=== PATIENT | female | born 1940 | race Caucasian/White ===

== ENCOUNTER 2019-12-28 15:24 | Outpatient (CLI) | payer MEDICARE, SELFPAY ==
[2019-12-28 15:49] LABS: Hematocrit 46.4 % (37.0-47.0); Hemoglobin 15.2 g/dL (12.0-15.0); Immature Platelet Fraction Pct 6.6 % (0.9-11.2); Mean Corpuscular HGB Conc 32.8 g/dl (32-36); Mean Corpuscular Hemoglobin 31.9 pg (26-34); Mean Corpuscular Volume 97.5 fl (80-100); Mean Platelet Volume 11.5 fl (7.4-10.4); Platelet Count Result 137 k/mm3 (150-375); Red Blood Count 4.76 M/mm3 (4.2-5.4); Red Cell Distribution Width 13.1 % (11.5-14.5); White Blood Count 5.3 K/mm3 (4.5-10.0)
[2019-12-28 15:52] LABS: Add Urine Microscopic? YES; Appearance Urine Clear (Clear); Bilirubin Urine Negative (Negative); Blood Urine Negative (Negative); Color Urine Yellow (Yellow); Glucose Urine UA Negative (Negative); Ketones Urine Negative (Negative); Leukocyte Esterase Ur Negative LEU/UL (NEGATIVE); Mucus Urine Rare /lpf; Nitrate Urine Negative (Negative); Protein Urine Negative (Negative); RBC Urine 0-2 /hpf (0-2); Specific Grav Ur 1.025 (1.001-1.035); Squamous Epithelial Cell Urine Rare /hpf (Few); Urobilinogen Urine Negative mg/dL (<2.0); WBC Urine 0-3 /hpf (0-3)
[2019-12-28 16:00] LABS: Alanine Aminotransferase 17 U/L (4-35); Albumin Level 4.4 g/dL (3.5-5.1); Alkaline Phosphatase 117 U/L (38-126); Aspartate Amino Transferase 31 U/L (14-36); Bilirubin,Total 0.4 mg/dL (0.2-1.3); Blood Urea Nitrogen 31 mg/dL (7-17); Calcium 9.2 mg/dL (8.4-10.2); Carbon Dioxide 29 mmol/L (22-30); Chloride 103 mmol/L (98-107); Estimated Glomerular Filt Rate > 60; Glucose 95 mg/dL (65-105); Potassium 4.4 mmol/L (3.4-5.0); Sodium 139 mmol/L (137-145)
== END 2019-12-28 15:25 | disposition home or self-care (01) ==
PROVIDERS: PCP Family Medicine; Visit Provider Family Medicine
DX: D64.9 Anemia, unspecified (principal); R53.83 Other fatigue; N39.0 Urinary tract infection, site not specified
CPT/HCPCS: 36415; 80053; 81001; 84443; 85027; 85055

== ENCOUNTER 2020-01-24 13:37 | Emergency (ER) | payer MEDICARE, SELFPAY ==
--- NOTE | 2020-01-24 13:44 | ED.SKABFB ---
HPI - Skin/Abscess/Foreign Bdy General Chief complaint: Skin/Abscess/Foreign Body Stated complaint: wasp sting Time Seen by Provider: 01/24/20 13:44 Source: patient and RN notes reviewed History of Present Illness HPI narrative: Patient is an 79-year-old female who presents the urgent care with complaints of a wasp sting to the right upper arm. Patient states that it occurred on Thursday and is continued with redness and swelling. Patient has been using hydrocortisone cream to the area without much relief. Denies any fever, chills, nausea, vomiting. No other acute complaints. No acute distress noted. Patient read the plan of care. Related Data Allergies Allergy/AdvReac Type Severity Reaction Status Date / Time codeine Allergy Unknown Unknown Verified 12/28/19 14:35 Review of Systems Review of Systems: Narrative: CONSTITUTIONAL: Denies fever, chills, or sweats. EYES: Denies visual changes, redness, or discharge. ENT: Denies rhinorrhea, congestion, sore throat, or otalgia. CARDIOVASCULAR: Denies chest pain, palpitations, or edema. RESPIRATORY: Denies cough or dyspnea. GASTROINTESTINAL: Denies abdominal pain, nausea, vomiting, or diarrhea. GENITOURINARY: Denies dysuria or hematuria. SKIN:reports of a wasp sting to the right upper arm MUSCULOSKELETAL: Denies back pain, joint pain, or myalgia. NEUROLOGIC: Denies headache, numbness, or weakness. All other systems reviewed are negative, except as documented in HPI. PMFSH Surgical History Surgical History (Updated 06/29/19 @ 11:28 by Luis Manuel Kaur MD) Hx of cataract surgery Hx of nasal septoplasty Social History Social History (Updated 12/28/19 @ 14:35 by Priyanka Boyd) Smoking status: Never smoker Second hand tobacco smoke exposure: No Alcohol intake: current Drinks per week: 2 Substance use: never Substance use type: does not use Gender identity (if verbalized by the patient): Female Comments At the time of my signature, I reviewed and agree with the nursing past medical, surgical, social, and family history. There is no relevant family history pertinent to the patient complaint. Exam Narrative: Exam Narrative: GENERAL: This is a well-nourished, well-developed patient, in no apparent distress. HEAD: normocephalic, atraumatic. EYES: PERRL. Sclera clear/white. Vision is grossly intact. EARS: External ears normal NOSE: External nose normal with no obvious nasal discharge, nares without redness, no rhinorrhea. THROAT: Mucous membranes moist NECK: Neck supple SKIN: Notable insect bite to the inside of the right upper arm with approximately 10 cm in erythemic linear streaking to the elbow with very mild edema surrounding the injection site NEURO: awake, alert, and oriented to person, place and time. There were no obvious focal neurologic abnormalities. EXTREMITIES: No clubbing, cyanosis, or edema. Course Vital Signs Vital signs: Vital Signs Temperature 97.6 F 01/24/20 13:47 Pulse Rate 77 01/24/20 13:47 Respiratory Rate 20 01/24/20 13:47 Blood Pressure 113/73 01/24/20 13:47 Pulse Oximetry 95 01/24/20 13:47 Temperature 97.6 F 01/24/20 13:47 Pulse Rate 77 01/24/20 13:47 Respiratory Rate 20 01/24/20 13:47 Blood Pressure 113/73 01/24/20 13:47 Pulse Oximetry 95 01/24/20 13:47 reviewed MDM - Skin/Abscess/Foreign Bdy MDM Narrative Medical decision making narrative: Advised patient to complete steroid regime as prescribed. Complete the antibiotic regimen as prescribed. If you develop any rash, nausea, vomiting from the antibiotic?stop the medication immediately and follow-up with your PCP or in the emergency room if necessary. Make sure to eat and drink with the medication. Use over the counter antihistamine, such as Benadryl OR Claritin. May continue using hydrocortisone cream to the area as needed for itch. Use ice for 20min intervals for swelling and pain. If you continue to have increased swelling with redness and pain?g
[2020-01-24 13:47] VITALS: BP 113/73; PULSE 77; RESP 20; TEMP 36.4; O2SAT 95
== END 2020-01-24 14:14 | disposition home or self-care (01) ==
PROVIDERS: Emergency Provider Nurse Practitioner Family; PCP Family Medicine
DX: T63.461A Toxic effect of venom of wasps, accidental (unintentional), initial encounter (principal)
CPT/HCPCS: 99213; G0463

== ENCOUNTER 2020-02-10 08:52 | Emergency (ER) | payer MEDICARE, SELFPAY ==
--- NOTE | 2020-02-10 08:56 | ED.SKABFB ---
HPI - Skin/Abscess/Foreign Bdy General Chief complaint: Skin/Abscess/Foreign Body Stated complaint: rash Time Seen by Provider: 02/10/20 08:55 Source: patient Mode of arrival: ambulatory Limitations: no limitations History of Present Illness HPI narrative: Patient is an 79-year-old female who presents complaining of poison kristine to bilateral arms and neck x3 to 4 days after working the yard. She reports positive exposure to poison kristine. She denies other complaints at this time. She reports no pain but reports intense itching. Small areas of erythema, no abrasions from itching, no drainage. She reports using [id number] cream without relief. She denies all other complaints. MD complaint: rash Related Data Allergies Allergy/AdvReac Type Severity Reaction Status Date / Time codeine Allergy Unknown Unknown Verified 12/28/19 14:35 Review of Systems Review of Systems: Narrative: CONSTITUTIONAL: Denies fever, chills, or sweats. EYES: Denies visual changes, redness, or discharge. ENT: Denies rhinorrhea, congestion, sore throat, or otalgia. CARDIOVASCULAR: Denies chest pain, palpitations, or edema. RESPIRATORY: Denies cough or dyspnea. GASTROINTESTINAL: Denies abdominal pain, nausea, vomiting, or diarrhea. GENITOURINARY: Denies dysuria or hematuria. SKIN: Reports rash and itching to bilateral arms and neck, reports exposure to poison kristine while in yard. MUSCULOSKELETAL: Denies back pain, joint pain, or myalgia. NEUROLOGIC: Denies headache, numbness, dizziness, or weakness. PSYCHIATRIC: Denies anxiety or depression. [facility] Surgical History Surgical History Hx of cataract surgery Hx of nasal septoplasty Family History Family History Sibling Patient's sister is in good health Father Family history of coronary artery disease Social History Social History Smoking status: Never smoker Second hand tobacco smoke exposure: No Alcohol intake: current Drinks per week: 2 Substance use: never Substance use type: does not use Gender identity (if verbalized by the patient): Female Exam Narrative: Exam Narrative: GENERAL: Well-appearing, well-nourished, and in no acute distress. HEAD: Normocephalic, atraumatic. EYES: EOMI. No redness or drainage. Conjunctiva are normal. ENT: Mucous membranes pink and moist. NECK: AROM. Supple. No lymphadenopathy. CHEST: No respiratory distress. Clear to auscultation. HEART: Regular rate and rhythm. No murmur appreciated. Normal peripheral pulses. EXTREMITIES: Normal range of motion. No edema. SKIN: Warm and dry. Mild diffuse erythema to bilateral arms and posterior neck, no excoriation, no pustules, no drainage. NEURO: No focal deficits. Alert and oriented x3. Gait steady. PSYCH: Normal affect. No signs of depression or anxiety. Course Course Emergency Course: MDM - Skin/Abscess/Foreign Bdy MDM Narrative Medical decision making narrative: Patient's poison kristine rash is mild, topical cream and instructions given for relief of itch. Patient is stable for discharge to home with outpatient follow-up as needed. Critical Care Time Critical Care Time Critical Care Time: No Discharge Plan Discharge Clinical Impression: Allergic dermatitis due to poison kristine Patient Disposition: Home, Self-Care Condition: Stable Instructions: Poison Kristine (ED), Cold Compress or Soak (ED) Additional Instructions: Use cream as directed. You may take Benadryl at home as directed. Do not drive while taking Benadryl. Follow-up with your PCP as needed. Prescriptions: New hydrocortisone 2.5 % cream 1 applic TOPICAL BID PRN (Reason: allergic reaction) Qty: 30 RF: 0 Follow-up/Referrals: Luis Manuel Kaur MD [Primary Care Provider] - Time of Disposition: 09:18
[2020-02-10 09:02] VITALS: BP 100/54; PULSE 67; RESP 18; TEMP 36.4; O2SAT 97
== END 2020-02-10 09:25 | disposition home or self-care (01) ==
PROVIDERS: Emergency Provider Nurse Practitioner; PCP Family Medicine
DX: L23.7 Allergic contact dermatitis due to plants, except food (principal)
CPT/HCPCS: 99213; G0463

== ENCOUNTER 2020-02-16 15:03 | Outpatient (CLI) | payer MEDICARE, SELFPAY ==
--- NOTE | ~2020-02-16 | MM_ITS ---
EXAMINATION: MM screening [facility] BI w nicki HISTORY: Screening mammogram TECHNIQUE: Craniocaudal and mediolateral oblique 3-D tomosynthesis images were obtained and synthetic 2-D images were generated. CAD analysis was submitted and interpreted. COMPARISON: 02/04/2019, 02/01/2018, 01/23/2017 BREAST PARENCHYMAL COMPOSITION: The breasts are heterogeneously dense, which may obscure small masses . FINDINGS: There is no evidence of suspicious mass, calcification, or architectural distortion to sugg est malignancy in either breast. There has been no suspicious interval change. IMPRESSION: 1. No mammographic evidence of malignancy. 2. Recommend routine screening mammography in one year. BI-RADS Category 1: Negative Reviewed, dictated and finalized at location A.
== END 2020-02-16 15:04 | disposition home or self-care (01) ==
LOC: ANHIMG 15:08
PROVIDERS: PCP Family Medicine; Visit Provider Family Medicine
DX: Z12.31 Encounter for screening mammogram for malignant neoplasm of breast (principal)
CPT/HCPCS: 77063; 77067

== ENCOUNTER → 2021-01-01 10:37 | Outpatient (CLI) | payer MEDICARE, SELFPAY ==
--- NOTE | ~2021-01-01 | XR_ITS ---
XR chest 2V DATE: 01/01/2021 10:55 INDICATION: Chest pain TECHNIQUE: PA and lateral views COMPARISON: 06/19/2018 one view chest FINDINGS: There is bilateral hyperinflation consistent with obstructive pulmonary disease. Bilateral apical scarring. No pulmonary infiltrate or consolidation, pleural effusion, pulmonary vascular conge stion or pneumothorax is evident. No hilar or mediastinal enlargement is evident. Heart size is within normal range. Diffuse osteopenia. Old healed lateral left eighth and ninth rib fractures. IMPRESSION: Bilateral hyperinflation suggesting COPD No active cardiopulmonary disease Diffuse osteopenia Reviewed, dictated and finalized at location B.
== END ==
PROVIDERS: PCP Family Medicine; Visit Provider Family Medicine
DX: R07.89 Other chest pain (principal); R91.8 Other nonspecific abnormal finding of lung field; M85.88 Other specified disorders of bone density and structure, other site
CPT/HCPCS: 71046

== ENCOUNTER → 2021-02-11 15:33 | Outpatient (CLI) | payer MEDICARE, SELFPAY ==
--- NOTE | ~2021-02-11 | XR_ITS ---
EXAMINATION: XR shoulder LT min 2V DATE: 02/11/2021 16:52 INDICATION: Left shoulder pain. TECHNIQUE: 4 views of left shoulder were obtained. COMPARISON: None. FINDINGS: There is a comminuted fracture of left clavicle involving the distal third. The main distal fracture fragment demonstrates 4 mm inferior displacement and 28 degrees inferior angulation. There is mild osteoarthritis of acromioclavicular joint and glenohumeral joint. IMPRESSION: 1. Comminuted fracture of distal left clavicle. 2. Mild polyarticular osteoarthritis. Reviewed, dictated and finalized at location A.
== END ==
PROVIDERS: PCP Family Medicine; Visit Provider Family Medicine
DX: M19.012 Primary osteoarthritis, left shoulder (principal); S42.032A Displaced fracture of lateral end of left clavicle, initial encounter for closed fracture; X58.XXXA Exposure to other specified factors, initial encounter
CPT/HCPCS: 73030

== ENCOUNTER 2022-02-12 10:10 | Outpatient (CLI) | payer MEDICARE, SELFPAY ==
--- NOTE | ~2022-02-12 | MM_ITS ---
EXAMINATION: MM screening [facility] BI w nicki HISTORY: Screening TECHNIQUE: Craniocaudal and mediolateral oblique 3-D tomosynthesis images were obtained and synthetic 2-D images were generated. CAD analysis was submitted and interpreted. COMPARISON: Comparison to multiple prior studies sequentially, with oldest reviewed study dated 01/19. BREAST PARENCHYMAL COMPOSITION: The breasts are extremely dense, which lowers the sensitivity of mamm ography. FINDINGS: There is no evidence of suspicious mass, calcification, or architectural distortion to sugg est malignancy in either breast. There has been no suspicious interval change. IMPRESSION: 1. No mammographic evidence of malignancy. 2. Recommend routine screening mammography in one year. BI-RADS Category 1: Negative Reviewed, dictated and finalized at location A.
== END 2022-02-12 10:11 | disposition home or self-care (01) ==
PROVIDERS: PCP Family Medicine; Visit Provider Family Medicine
DX: Z12.31 Encounter for screening mammogram for malignant neoplasm of breast (principal)
CPT/HCPCS: 77063; 77067

== ENCOUNTER 2022-10-15 09:35 | Emergency (ER) | payer MEDICARE, SELFPAY ==
--- NOTE | ~2022-10-15 | CT_ITS ---
EXAMINATION: CT cervical spine wo con DATE: 10/15/2022 10:04 INDICATION: Head injury. TECHNIQUE: Computed tomography (CT) of the cervical spine was performed without intravenous contrast. Automated exposure control and iterative reconstruction technique were employed. The dose-length pro duct was 116.43 mGy-cm. COMPARISON: None FINDINGS: There is mild scarring at the lung apices. Bone alignment is normal. Vertebral body heights are normal. There is mildly decreased disc height at C5-C6 and severely decreased disc height at C6- C7. The following disc levels are specifically discussed: C2-C3: There is mild bilateral uncovertebral joint osteoarthritis. There is mild bilateral facet join t osteoarthritis. There is no neural foraminal stenosis. There is no central canal stenosis. C3-C4: There is mild right and severe left uncovertebral joint osteoarthritis. There is severe bilate ral facet joint osteoarthritis. There is mild left neural foraminal stenosis. There is no central can al stenosis. C4-C5: There is mild bilateral uncovertebral joint osteoarthritis. There is severe right and mild lef t facet joint osteoarthritis. There is no neural foraminal stenosis. There is no central canal stenos is. C5-C6: There is mild bilateral uncovertebral joint osteoarthritis. There is mild left facet joint ost eoarthritis. There is no neural foraminal stenosis. There is no central canal stenosis. C6-C7: There is moderate right and severe left uncovertebral joint osteoarthritis. There is moderate right and severe left facet joint osteoarthritis. There is mild left neural foraminal stenosis. There is mild central canal stenosis. C7-T1: There is no uncovertebral joint osteoarthritis. There is moderate and severe left facet joint osteoarthritis. There is mild left neural foraminal stenosis. There is no central canal stenosis. IMPRESSION: 1. No fracture. 2. Severe cervical spondylosis. Reviewed, dictated and finalized at location A.
--- NOTE | ~2022-10-15 | CT_ITS ---
EXAMINATION: CT brain wo con DATE: 10/15/2022 10:04 INDICATION: Head injury TECHNIQUE: Computed tomography (CT) of the head was performed without intravenous contrast. Sagittal and coronal reconstructions were performed. Automated exposure control and iterative reconstruction t echnique were employed. The dose-length product was 681.00 mGy-cm. COMPARISON: None FINDINGS: No fracture. No acute intracranial hemorrhage, acute infarction or abnormal extra axial fluid collect ion. Small old lacunar infarcts at the bilateral basal ganglia involving the heads of the caudate nuc lei and the anterior limb of the right internal capsule. There is mild scattered white matter hypoatt enuation consistent with chronic small vessel ischemic disease. Ventricles are normal and symmetric. No mass/mass effect. Mild mucosal thickening in the bilateral maxillary and right sphenoid sinuses. The orbits and mastoid air cells are normal. IMPRESSION: 1. No fracture or acute intracranial process. 2. Small old lacunar infarcts at the bilateral caudate nuclei and anterior limb of the right internal capsule. 3. Nonspecific mild scattered white matter hypoattenuation consistent with chronic small vessel ische byron disease. Reviewed, dictated and finalized at location A. IMPRESSION: 1. No fracture or acute intracranial process. 2. Small old lacunar infarcts at the bilateral caudate nuclei and anterior limb of the right internal capsule. 3. Nonspecific mild scattered white matter hypoattenuation consistent with site superintendent isaac small vessel ischemic disease.
[2022-10-15 09:43] VITALS: BP 121/75; PULSE 78; RESP 16; TEMP 36.6; O2SAT 97
--- NOTE | 2022-10-15 09:51 | PC.NURSE ---
While cleaning around her street, pt hit the top of her head off her mailbox this morning. Pt denies any LOC or blood thinners. Pt states she noticed the blood and applied a bandage before coming to the hospital. Pt drove her self.
--- NOTE | 2022-10-15 10:17 | PC.NURSE ---
RN cleans wound with wound cleanser. Bleeding controlled at this time.
--- NOTE | 2022-10-15 10:30 | ED.HEATRA ---
HPI - Head Injury General Chief complaint: Head Injury Stated complaint: head injury Time Seen by Provider: 10/15/22 09:47 History of Present Illness HPI Narrative: 81-year-old female presents to the emergency room for evaluation of scalp laceration. Patient states that she was outside checking her mail, when she experienced a mechanical ground-level fall, striking her head on the mailbox. Patient is not anticoagulated. For now.-year-old for mental status. Denies any neck pain. No nausea or vomiting. No visual or hearing changes. Patient was able to drive herself to the emergency room for evaluation. Related Data Home Medications Medication Instructions Recorded Confirmed multivitamin 1 tablet PO DAILY 02/13/21 02/20/22 omega-3 fatty acids 1,000 mg 1,000 mg PO DAILY 02/13/21 02/20/22 capsule (Fish Oil Concentrate) Allergies Allergy/AdvReac Type Severity Reaction Status Date / Time codeine Allergy Unknown Unknown Verified 10/15/22 09:45 Review of Systems Review of Systems: CONSTITUTIONAL: Denies fever, chills, or sweats. EYES: Denies visual changes, redness, or discharge. ENT: Denies rhinorrhea, congestion, sore throat, or otalgia. CARDIOVASCULAR: Denies chest pain, palpitations, or edema. RESPIRATORY: Denies cough or dyspnea. GASTROINTESTINAL: Denies abdominal pain, nausea, vomiting, or diarrhea. GENITOURINARY: Denies dysuria or hematuria. SKIN: Denies rash or itching. MUSCULOSKELETAL: Denies back pain, joint pain, or myalgia. NEUROLOGIC: Denies headache, numbness, dizziness, or weakness. PSYCHIATRIC: Denies anxiety or depression. [facility] Past Medical History Medical History Osteoporosis Surgical History Surgical History History of foot surgery Bilateral Hx of cataract surgery Hx of nasal septoplasty Family History Family History Sibling Patient's sister is in good health Eczema Seafood allergy Father Family history of coronary artery disease Social History Social History Smoking status: Never smoker Second hand tobacco smoke exposure: No Alcohol intake: never Substance use: never Substance use type: does not use Living arrangements: with family Occupation/Education: retired Gender identity (if verbalized by the patient): Female Sexual Orientation (if Verbalized by the Patient): Straight or Heterosexual Spiritual care concerns: No Exam Narrative: GENERAL: Well-appearing, well-nourished, no physical limitations, and in no acute distress. HEAD: Normocephalic, 0.5 cm linear laceration to the scalp EYES: Conjunctivae normal, PERRLA and EOMI. ENT: External nose normal, Nares clear, no rhinorrhea or epistaxis. Mucous membranes moist. Oropharynx without tonsillar hypertrophy exudate or other lesions. External ears normal, bilateral TMs normal bilaterally NECK: Supple. No meningeal signs. No adenopathy or masses. No carotid bruits or JVD CHEST: Clear to auscultation. No respiratory distress. No wheezes rales or rhonchi. No tenderness. HEART: Regular rate and rhythm. No murmur heard. Normal peripheral pulses. ABDOMEN: Soft, nontender, nondistended, normal active bowel sounds. : Normal external male/female exam. BACK: No CVA tenderness; No cervical/thoracic/lumbar tenderness, step-offs, bony abnormality; FROM EXTREMITIES: Normal range of motion. No edema. No clubbing or cyanosis SKIN: Warm, dry, no rash. No noted wounds NEURO: No focal deficits. Alert and oriented x3. MAEW. CN's II-XI intact bilaterally, normal gait PSYCH: Cooperative. Normal mood and affect. Course Vital Signs Vital signs: Vital Signs Temperature 36.6 C 10/15/22 09:43 Pulse Rate 78 10/15/22 09:43 Respiratory Rate 16 10/15/22 09:43 Blood Pressure 121/75 04/
== END 2022-10-15 11:03 | disposition home or self-care (01) ==
PROVIDERS: Emergency Provider Nurse Practitioner Family; PCP Family Medicine
DX: S01.01XA Laceration without foreign body of scalp, initial encounter (principal); M81.0 Age-related osteoporosis without current pathological fracture; Z98.49 Cataract extraction status, unspecified eye; M47.812 Spondylosis without myelopathy or radiculopathy, cervical region; W01.198A Fall on same level from slipping, tripping and stumbling with subsequent striking against other object, initial encounter
CPT/HCPCS: 12001; 70450; 72125; 99284

== ENCOUNTER 2023-02-13 16:05 | Inpatient (IN) | payer MEDICARE, SELFPAY ==
[2023-02-13] VITALS (33 sets, daily range): BP systolic 109–138; BP diastolic 58–66; PULSE 73–107; RESP 18–37; TEMP 37.5–38.1; O2SAT 89–96; BMI 18.1
--- NOTE | ~2023-02-13 | US_ITS ---
EXAMINATION: US venous doppler [facility] DATE: 02/14/2023 09:15 INDICATION: Lower limb swelling TECHNIQUE: Grayscale ultrasound images without and with compression and Doppler ultrasound images of the bilateral lower extremity veins were obtained. COMPARISON: None. FINDINGS: The visualized portions of right common femoral vein, profunda (deep) femoral vein, femoral vein, pop liteal vein, posterior tibial veins, peroneal veins, gastrocnemius vein and greater saphenous vein ou tflow are patent. The visualized portions of left common femoral vein, profunda femoral vein, femoral vein, popliteal v ein, posterior tibial veins, peroneal veins, gastrocnemius vein and greater saphenous vein outflow ar e patent. IMPRESSION: 1. No deep venous thrombosis in either lower limb. Reviewed, dictated and finalized at location A.
--- NOTE | ~2023-02-13 | CT_ITS ---
EXAMINATION: CTA chest PE protocol DATE: 02/13/2023 18:57 INDICATION: Chest pain, shortness of breath and elevated d-dimer TECHNIQUE: Computed tomography (CT) pulmonary angiogram of the chest was performed with 100 mL Omnipa que-350 intravenous contrast. Additional 3D reconstructions utilizing coronal maximum intensity proje ction (MIP) were performed. Automated exposure control and iterative reconstruction technique were em ployed. The dose-length product was 130.77 mGy-cm. COMPARISON: Cervical spine CT dated 10/15/2022 and chest radiograph dated 02/13/2023, 01/01/2021 and 04/28/2014 FINDINGS: Excellent contrast opacification of the pulmonary arteries. There is mild streak artifact from dense contrast in the superior vena cava and right atrium. Mild scattered respiratory motion artifact. Nega tive this mildly decreases sensitivity in the smaller subsegmental pulmonary arteries. No pulmonary e mbolism. Chronic biapical pleural-parenchymal scarring, right greater than left which can be seen on radiographs dating back to 04/28/2014. There is consolidation without corresponding volume loss in the lingula consistent with pneumonia. Additional small region of consolidation at the medial right midd le lobe but with volume loss and associated bronchiectasis which is more suggestive of chronic atelec tasis/scarring although additional pneumonia is not excluded. There are a few additional small patchy regions of lung disease from groundglass opacity the left lower lobe and anterobasilar right lower l obe, tree-in-bud pattern in the posterior right upper lobe and more dense consolidation superior segm ent of the right lower lobe which are most likely also infectious in etiology. Very small bilateral p leural effusions at the dependent lung bases. Heart size is normal. No pericardial effusion. Thoracic aorta is normal in caliber with no dissection. No pathologically enlarged thoracic lymphadenopathy. And mild thoracic dextrocurvature with mild to moderate spondylosis.. IMPRESSION: 1. No pulmonary embolism. 2. Large region of consolidation in the lingula with a few additional scattered patchy regions of lesli g disease in both lungs most consistent with multifocal pneumonia. Reviewed, dictated and finalized at location A. IMPRESSION: 1. No pulmonary embolism. 2. Large region of consolidation in the lingula with a few additional scattered patchy regions of lung disease in both lungs most consistent with multifocal p neumonia.
--- NOTE | ~2023-02-13 | XR_ITS ---
EXAMINATION: XR chest 1V portable INDICATION: Cough TECHNIQUE: Portable AP chest at 1653 hours COMPARISON: 01/01/2021 FINDINGS: There are airspace opacities and volume loss in the right upper lobe. There is an 8 mm nodu le of the lingula/left lower lobe. No pleural effusion or pneumothorax. The cardiomediastinal silhoue tte is stable. Healed left-sided rib fractures are noted. There is also a healed left distal clavicle fracture. IMPRESSION: 1. Right upper lobe airspace opacities which could reflect scarring/atelectasis versus pneumonia. 2. Nodule of the lingula/left lower lobe. Further evaluation with CT of the chest is recommended. Reviewed, dictated and finalized at location A. IMPRESSION: 1. Right upper lobe airspace opacities which could reflect scarring/atelectasis versus pneumonia. 2. Nodule of the lingula/left lower lobe. Further evaluation with CT of the [address] st is recommended.
--- NOTE | 2023-02-13 16:16 | ECG_ITS ---
Measurements Intervals [place] Rate: 101 P: 81 RI: 143 QRS: 243 QRSD: 86 T: 33 QT: 306 QTc: 398 Interpretive Statements SINUS TACHYCARDIA INDETERMINATE AXIS COMPARED TO ECG 03/01/2019 10:17:30 SINUS TACHYCARDIA NOW PRESENT Electronically Signed On 02-14-2023 11:34:03 CDT by Costa Olivo MD
[2023-02-13 17:10] LABS: Basophils Percent Auto 0.3 % (0.2-1.2); Eosinophils Percent Auto 0.2 % (0-4.4); Hematocrit 40.1 % (37.0-47.0); Hemoglobin 12.8 g/dL (12.0-15.0); Immature Granulocyte Absolute 0.08 K/mm3 (0.00-0.031); Immature Granulocyte Percent A 0.6 % (0-0.5); Lymphocytes Absolute Auto 0.88 K/mm3 (0.9-3.2); Mean Corpuscular HGB Conc 31.9 g/dl (32-36); Mean Corpuscular Hemoglobin 31.5 pg (26-34); Mean Corpuscular Volume 98.8 fl (80-100); Mean Platelet Volume 12.2 fl (7.4-10.4); Monocytes Absolute Auto 1.2 K/mm3 (0.1-0.6); Monocytes Percent Auto 9.2 % (2.6-8.5); Neutrophils Absolute Auto 10.5 K/mm3 (1.3-6.7); Neutrophils Percent Auto 82.7 % (45.5-73.1); Platelet Count Result 149 k/mm3 (150-375); Red Blood Count 4.06 M/mm3 (4.2-5.4); Red Cell Distribution Width 13.3 % (11.5-14.5); White Blood Count 12.7 K/mm3 (4.5-10.0)
[2023-02-13 17:21] LABS: Alanine Aminotransferase 23 U/L (6-35); Albumin Level 3.6 g/dL (3.5-5.1); Alkaline Phosphatase 127 U/L (38-126); Anion Gap 6 mmol/L (8-16); Aspartate Amino Transferase 27 U/L (14-36); Bilirubin,Total 0.6 mg/dL (0.2-1.3); Blood Urea Nitrogen 24 mg/dL (7-17); Calcium 8.2 mg/dL (8.4-10.2); Carbon Dioxide 26 mmol/L (22-30); Chloride 104 mmol/L (98-107); Estimated CRCL calculation 40 ml/min; Estimated Glomerular Filt Rate > 60; Glucose 156 mg/dL (65-110); Potassium 4.1 mmol/L (3.4-5.0); Sodium 136 mmol/L (137-145)
[2023-02-13 17:44] LABS: Influenza A QL RT-PCR Negative (Negative); Influenza B QL RT-PCR Negative (Negative); SARS-CoV-2 RNA PCR Negative (Negative)
[2023-02-13 17:53] LABS: Partial Thromboplastin Time 29.5 SECONDS (22.3-36.8)
[2023-02-13 17:54] LABS: INR 0.9; Prothrombin Time 13.1 Seconds (11.1-14.7)
--- NOTE | 2023-02-13 17:55 | ED.SOB ---
HPI - SOB/Dyspnea General Chief Complaint: Shortness of Breath/Dyspnea <Anahi Dee PA-C - Last Filed: 02/13/23 21:38> Stated Complaint: decreased energy level, sob <LYLE Hawley Last Filed: 02/13/23 21:38> Time Seen by Provider: 02/13/23 16:58 <Anahi Dee PA-C - Last Filed: 02/13/23 21:38> Source: patient <LYLE Hawley Last Filed: 02/13/23 21:38> Mode of arrival: ambulatory <LYLE Hawley Last Filed: 02/13/23 21:38> Limitations: no limitations <LYLE Hawley Last Filed: 02/13/23 21:38> History of Present Illness HPI Narrative: This is an 82-year-old female that presents to the emergency department for generalized weakness. Reports fatigue, shortness of breath, cough, and left-sided chest pain. The pain is worse with coughing and deep breathing. Reports this has been ongoing for about 1-1/2 weeks. Patient noted to be febrile. She does live at home alone. Reports she has not been getting around very well. Denies lower extremity edema. <Anahi Dee PA-C - Last Filed: 02/13/23 21:38> Related Data Home Medications: Home Medications Medication Instructions Recorded Confirmed multivitamin 1 tablet PO DAILY 02/13/21 02/13/23 omega-3 fatty acids 1,000 mg 1,000 mg PO DAILY 02/13/21 02/13/23 capsule (Fish Oil Concentrate) psyllium 1 packet PO DAILY 02/13/23 02/13/23 <LYLE Hawley Last Filed: 02/13/23 21:38> Allergies/Adverse Reactions: Allergies Allergy/AdvReac Type Severity Reaction Status Date / Time codeine Allergy Unknown Unknown Verified 02/13/23 18:32 <LYLE Hawley Last Filed: 02/13/23 21:38> Review of Systems Review of Systems: CONSTITUTIONAL: Reports fever CARDIOVASCULAR: Reports chest pain. Denies edema. RESPIRATORY: Reports cough and dyspnea. NEUROLOGIC: Reports generalized weakness. <Anahi Dee PA-C - Last Filed: 02/13/23 21:38> All systems reviewed & are unremarkable except as noted in HPI and below <Anahi Dee PA-C - Last Filed: 02/13/23 21:38> [facility] Past Medical History Medical History: Medical History (Updated 02/13/23 @ 21:33 by Belinda Mg PA-C) Bronchiectasis Chronic constipation Chronic obstructive pulmonary disease Mycobacterium avium-intracellulare infection Followed by [facility]. Osteoporosis <Anahi Dee PA-C - Last Filed: 02/13/23 21:38> Surgical History Surgical History: Surgical History (Updated 02/13/23 @ 21:19 by Belinda Mg PA-C) History of cataract extraction History of foot surgery History of bone spur removal in bunionectomy. History of nasal septoplasty <Anahi Dee PA-C - Last Filed: 02/13/23 21:38> Family History Family History: Family History Sibling Patient's sister is in good health Eczema Seafood allergy Father Family history of coronary artery disease <Anahi Dee PA-C - Last Filed: 02/13/23 21:38> Social History Social History: Social History (Updated 02/13/23 @ 21:22 by Belinda Mg PA-C) Social History: Surrogate medical decision maker: Cynthia Szymanskiner, sister. Code status: Smoking status: Never smoker Second hand tobacco smoke exposure: No Alcohol intake: current Substance use: never Substance use type: does not use Lack of Transportation: No Lack of Food: Never True Current Housing: I Have Housing Concerned About Future Housing: No Difficulty Paying Gas/Electric Bills: No Difficulty Paying for Meds: No Currently Unemployed: No Education: Bachelor's Degree Difficulty w/ Childcare or Family Care: No Living arrangements: alone Additional living arrangements comments: The patient lives in her own home in [place]. She lives at home with her small dog, Chana. She never and has no children.
[2023-02-13 17:56] LABS: D Dimer 2.92 ug/mL (<0.48)
[2023-02-13 18:26] LABS: Lactic Acid Reflex 0.8 mmol/L (0.7-2.0)
[2023-02-13 18:28] LABS: Alveolar/Arterial O2 Gradient 101.3 mmHg; Base Excess ABG 1.8 mEq/l (+/-2.0); Fractional Inspired Oxygen 32 %; HCO3 ABG 25.8 mEq/l (22.0-26.0); Methemoglobin ABG 0.3 %THb (0-1.5); Oxygen Content ABG 17.5 %vol (16.0-22.0); Oxygen Saturation ABG 96.6 % (95.0-100.0); Oxyhemoglobin 95.9 % THb (90.0-100.0); PCO2 ABG 37.9 mmHg (35.0-45.0); PO2 ABG 82.5 mmHg (80.0-100.0); PO2 FiO2 Ratio Arterial Blood 2.58 %; Reduced Hemoglobin 3.8 %THb (0-5.0); Total Hemoglobin 12.9 g/dL (12.0-18.0)
[2023-02-13 18:29] LABS: Device NASAL CANNULA; Site Drawn LEFT BRACHIAL
[2023-02-13] MEDS: ACETAMINOPHEN 500 MG TABLET 1000 MG PO (18:32)
--- NOTE | 2023-02-13 19:33 | PC.NURSE ---
This RN assumed care of patient. This RN took patient report from RITESH Potter.
[2023-02-13 19:41] LABS: Hemoglobin A1C 5.5 % (<5.7)
[2023-02-13] MEDS: AZITHROMYCIN 500 MG/NS 250 ML 500 MG/250 ML BAG 250 MG IVPB (19:43)
--- NOTE | 2023-02-13 20:44 | PM.IMHP ---
H&P: HPI History of Present Illness Date/Time: 02/13/23 20:15 Chief Complaint: Generalized weakness. Narrative: This is a very pleasant 82-year-old female with history of mycobacterium avium intracellulare infection with bronchiectasis/COPD felt to be a sequelae of prior SATURNINO infection who presented to the emergency department via private vehicle from home for evaluation of generalized weakness. The patient provides the following history. She returned from a 10 day trip to [place] 3 days ago and she felt well a majority of the trip however she lost her appetite earlier this week. Since returning home she has felt worse each day with generalized weakness, malaise, fatigue, dry cough, left-sided pleuritic chest pain, shortness of breath, and decreased appetite. She denies fever but did have a low-grade temperature on arrival. She has no known sick contacts. She denies chills, sweats, and fever (low-grade temperature noted on arrival to the ED), headache, neck ache, rash, nausea, vomiting, diarrhea, and hemoptysis. Preliminary workup in the ED was significant for a WBC count of 12.7, D-dimer 2.92, sodium 136, BUN 24, and negative influenza and COVID screenings. Chest CTA showed no evidence of pulmonary embolism but did note findings consistent with multifocal pneumonia. She received a dose of azithromycin and ceftriaxone and she is being admitted in this setting for further treatment. Review of Systems Review of Systems: Twelve systems were reviewed and are negative except for as per HPI. [facility] Past Medical History Medical History (Updated 02/13/23 @ 21:33 by Belinda Mg PA-C) Bronchiectasis Chronic constipation Chronic obstructive pulmonary disease Mycobacterium avium-intracellulare infection Followed by [facility]. Osteoporosis Surgical History Surgical History (Updated 02/13/23 @ 21:19 by Belinda Mg PA-C) History of cataract extraction History of foot surgery History of bone spur removal in bunionectomy. History of nasal septoplasty Family History Family History Sibling Patient's sister is in good health Eczema Seafood allergy Father Family history of coronary artery disease Social History Social History (Updated 02/13/23 @ 21:22 by Belinda Mg PA-C) Social History: Surrogate medical decision maker: Cynthia Valdes, sister. Code status: Smoking status: Never smoker Second hand tobacco smoke exposure: No Alcohol intake: never Substance use: never Substance use type: does not use Living arrangements: alone Additional living arrangements comments: The patient lives in her own home in [place]. She lives at home with her small dog, Chana. She never and has no children. 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 Spiritual care concerns: No Meds Home Medications and Allergies Home Medications Medication Instructions Recorded Confirmed Type multivitamin 1 tablet PO DAILY 02/13/21 01/13/23 History omega-3 fatty acids 1,000 mg 1,000 mg PO DAILY 02/13/21 01/13/23 History capsule (Fish Oil Concentrate) triamcinolone acetonide 0.1 % 1 applic topical BID PRN bites #30 01/13/23 01/13/23 Rx topical ointment grams Allergies Allergy/AdvReac Type Severity Reaction Status Date / Time codeine Allergy Unknown Unknown Verified 02/13/23 18:32 Vital Signs Vital Signs - 24 hr 02/13/23 16:08 02/13/23 18:30 02/13/23 19:51 Temperature 99.5 F 100.6 F H Pulse Rate 107 H Respiratory Rate 24 H Blood Pressure 129/66 Pulse Oximetry 91 92 Oxygen Delivery Room Air Nasal Cannula Oxygen Flow Rate 4 Exam Narrative: General: Thin, frail, moderately ill-appearing elderly female in the semi-García position in bed. Weight: 49.44 kg. BMI: 18.7. HEENT: Wearing corrective lenses. PERRL, EOMI. Scler
--- NOTE | 2023-02-13 21:53 | ADMGEN ---
This patient, Shelton Cheema, was admitted to Medical Room 342-01. Patient/family oriented to hospital policies and general routines including ID bracelet, bed and alarms, visiting hours, pain management, procedures, bathroom and other care routines, personal items, smoking policy, room service/diet, and visiting hours. Information on how to activate the Rapid Response Team has been discussed. Patient/Family are encouraged to report perceived risks to care and to ask questions if they do not understand what they are told or what they should do.
[2023-02-13 22:11] LABS: NT Pro B Type Natriuretic Pept 766 pg/mL (19.9-100); Troponin I < 0.012 ng/mL (0.000-0.034)
[2023-02-14] VITALS (15 sets, daily range): BP systolic 103–128; BP diastolic 40–64; PULSE 85–98; RESP 16–22; TEMP 36.4–38.3; O2SAT 90–97
[2023-02-14] MEDS: IPRATROPIUM BR 0.02% INH SOLN 0.5 MG/2.5 ML VIAL INHALATION ×4 (02:33→21:09)
[2023-02-14] MEDS: ALBUTEROL SULFATE NEB 2.5 MG/3 ML INH INHALATION ×4 (02:33→21:08)
[2023-02-14] MEDS: SODIUM CHLOR 3% 15 ML NEB (RESPIRATORY THERAPY) 6 ML INHALATION (05:31)
[2023-02-14] MEDS: PSYLLIUM POWDER PACKET 1 PACKET PO (09:15)
[2023-02-14] MEDS: MULTIVITAMINS THERAPEUTIC TAB (*BKC) 1 TABLET PO (09:15)
[2023-02-14] MEDS: ENOXAPARIN 40 MG/0.4 ML SYRINGE SUB-Q (09:15)
[2023-02-14] MEDS: guaiFENesin 12 HR 600 MG TABCR PO ×2 (09:15→21:52)
--- NOTE | 2023-02-14 11:42 | PM.CNPUL ---
Assessment and Plan Assessment and plan (1) Acute respiratory failure with hypoxia: Code(s): J96.01 - Acute respiratory failure with hypoxia Status: Acute Assessment and Plan: This 82-year-old female with history of radiographic emphysema bronchiectasis previous non tuberculous mycobacterial infection for which she received treatment with antibiotics, with recurrence of mycobacterial infection based on sputum culture done in May of last year, presented with complaints of generalized fatigue, left pleuritic chest pain, mild cough, and borderline hypoxemia. Chest CT showed infiltrate left upper lobe which is definitely new as in previous chest CT reports she had no evidence of left upper lobe infiltrates. The patient has been on treatment for community-acquired pneumonia. Her respiratory status has been unchanged over the last 24 hours. Plan: Continue with current antibiotic regimen DVT prophylaxis supplemental oxygen. I would culture sputum for AFBs as patient has known recurrence of nontuberculous mycobacterial infection, based on sputum cultures done in May of 2022. The CT showed pneumonic infiltrate which could be related to community-acquired pneumonia but progression of her nontuberculous mycobacterial infection is also likely. Will follow the patient along with you. (2) Multifocal pneumonia: Code(s): J18.9 - Pneumonia, unspecified organism Status: Acute (3) History of Mycobacterium avium intracellulare infection: Code(s): Z86.19 - Personal history of other infectious and parasitic diseases Status: Acute (4) Emphysema lung: Code(s): J43.9 - Emphysema, unspecified Status: Acute (5) Bronchiectasis: Code(s): J47.9 - Bronchiectasis, uncomplicated Status: Acute History of Present Illness History of Present Illness Consult date: 02/14/23 Chief complaint: acute resp failure, pneumonia Narrative: This 82-year-old female with a previous history of mycobacterium avium intracellular artery, history of bronchiectasis/COPD presented with generalized weakness decreased appetite and left lateral ribcage pleuritic chest pain. The patient has history of mycobacterium avium intracellular Jesse followed up the lack center at [facility]. In the past the patient was treated with antibiotics for SATURNINO infection. Patient was last seen at [facility] in July of this year. According to outpatient evaluation, she was stable from a respiratory standpoint. In May of 2022 she had sputum culture for not tubercle is mycobacteria and according to her air sampling and monitoring at [facility] she had 2- samples and 1 growing moderate mycobacterium chimaera intracellulare. No treatment was restarted. In addition the patient has a history of bronchiectasis and COPD. Pulmonary function testing at [facility] showed FEV1 in the range of 1 point 0 L or 56% predicted, FVC of 1.24 52% predicted and a ratio of 82%. She had no evidence of oxyhemoglobin desaturation on the 6 minute walk test and a chest CT done approximately 1 year ago showed mild lung predominant bronchiectasis greatest in the right lobe with some right middle lobe volume loss related to previous SATURNINO infection. The patient was in her usual state of health until approximately several days prior to this admission when she felt weak. In addition she started to have a dry cough, left-sided pleuritic chest pain mild shortness of breath and decreased appetite. She had no fever chills sweats nausea vomiting or hemoptysis. Workup in the emergency room showed extensive consolidation in the lingula with a few additional scattered patchy regions of lung disease in both lungs consistent with multifocal pneumonia. In the emergency room she was found to have a low-grade fever and also oxyhemoglobin saturation of 89% on room air. The patient has been on antibiotics for community-acquired pneumonia. Review of Systems Review of Systems: All systems
--- NOTE | 2023-02-14 15:20 | PM.IMPN ---
Progress Note: A&P Assessment and Plan (1) Acute respiratory failure with hypoxia: Code(s): J96.01 - Acute respiratory failure with hypoxia Status: Acute Assessment and Plan: Secondary to pneumonia Continue oxygen and wean as tolerated (2) Multifocal pneumonia: Code(s): J18.9 - Pneumonia, unspecified organism Status: Acute Assessment and Plan: Continue ceftriaxone and azithromycin (3) History of Mycobacterium avium intracellulare infection: Code(s): Z86.19 - Personal history of other infectious and parasitic diseases Status: Acute Assessment and Plan: Continue pulmonary toilet Subjective Date/time seen: 02/14/23 15:20 Interval history: Bored and wants to get out of bed. Tolerated diet. Appetite improved. Still coughing. Minimally productive of white sputum. Left pleuritic pain persists. No other chest pain. Shortness of breath with ambulation. No GI or complaints. No abnormal bleeding. Review of Systems Review of Systems: Twelve systems were reviewed and are negative except for as per HPI. Exam Narrative: General: Thin, frail, moderately ill-appearing elderly female in NAD HEENT: PERRL, Sclera anicteric. Moist mucous membranes. Neck: Supple. Respiratory: Mildly tachypneic. Able to speak in full sentences and appears in no acute respiratory distress. Currently on 4 L nasal cannula. Lung sounds are are coarse with scattered crackles Cardiovascular: Regular rate and rhythm with S1-S2. Gastrointestinal: Abdomen is soft, flat, nontender, and nondistended with positive bowel sounds. Skin: Warm and dry. No rash or lesions on limited exam. Extremities: No cyanosis or clubbing. Neurological: Alert. Cranial nerves 3-12 are symmetric to visual inspection. Psychiatric: Pleasant and cooperative with normal mood and affect. Judgment and insight intact. A/O x 4. Objective Data Vital Signs Vital Signs: Vital Signs - 24 hr 02/13/23 16:08 02/13/23 18:30 02/13/23 19:51 Temperature 99.5 F 100.6 F H Pulse Rate 107 H Respiratory Rate 24 H Blood Pressure 129/66 Pulse Oximetry 91 92 Oxygen Delivery Room Air Nasal Cannula Oxygen Flow Rate 4 02/13/23 16:16 02/13/23 16:30 02/13/23 16:33 Temperature Pulse Rate 96 97 Respiratory Rate 24 H 29 H Blood Pressure 123/62 Pulse Oximetry 89 L 90 91 Oxygen Delivery Oxygen Flow Rate 02/13/23 16:45 02/13/23 16:46 02/13/23 17:00 Temperature Pulse Rate 95 97 94 Respiratory Rate 30 H 31 H 35 H Blood Pressure 124/65 127/63 Pulse Oximetry 90 89 L 91 Oxygen Delivery Oxygen Flow Rate 02/13/23 17:01 02/13/23 17:15 02/13/23 17:16 Temperature Pulse Rate 95 91 95 Respiratory Rate 35 H 32 H 31 H Blood Pressure 128/58 L Pulse Oximetry 91 90 90 Oxygen Delivery Oxygen Flow Rate 02/13/23 17:30 02/13/23 17:31 02/13/23 17:45 Temperature Pulse Rate 90 90 88 Respiratory Rate 35 H 34 H 29 H Blood Pressure 126/66 130/60 Pulse Oximetry 90 90 89 L Oxygen Delivery Oxygen Flow Rate 02/13/23 17:46 02/13/23 18:05 02/13/23 18:35 Temperature Pulse Rate 90 93 92 Respiratory Rate 19 21 H 24 H Blood Pressure Pulse Oximetry 91 96 94 Oxygen Delivery Oxygen Flow Rate 02/13/23 19:00 02/13/23 19:15 02/13/23 19:30 Temperature Pulse Rate 87 80 80 Respiratory Rate 26 H 30 H 32 H Blood Pressure Pulse Oximetry 95 94 93 Oxygen Delivery Oxygen Flow Rate 02/13/23 19:45 02/13/23 20:00 02/13/23 20:15 Temperature Pulse Rate 78 82 82 Respiratory Rate 28 H 34 H 37 H Blood Pressure Pulse Oximetry 94 94 95 Oxygen Delivery Oxygen Flow Rate 02/13/23 20:30 02/13/23 20:45 02/13/23 21:00 Temperature Pulse Rate 82 78 74 Respiratory Rate 24 H 35 H 34 H Blood Pressure 109/63 Pulse Oximetry 93 95 95 Oxygen Delivery Oxygen Flow Rate 02/13/23 21:01 02/13/23 21:15 02/13/23 21:16 Temper
[2023-02-14] MEDS: AZITHROMYCIN 500 MG/NS 250 ML 500 MG/250 ML BAG 250 MG IVPB (21:53)
[2023-02-15] VITALS (14 sets, daily range): BP systolic 118–122; BP diastolic 60–65; PULSE 86–100; RESP 14–20; TEMP 36.6–37.2; O2SAT 93–95
[2023-02-15] MEDS: IPRATROPIUM BR 0.02% INH SOLN 0.5 MG/2.5 ML VIAL INHALATION ×4 (02:36→20:01)
[2023-02-15] MEDS: ALBUTEROL SULFATE NEB 2.5 MG/3 ML INH INHALATION ×4 (02:36→20:01)
[2023-02-15 05:30] LABS: Hematocrit 34.9 % (37.0-47.0); Hemoglobin 11.1 g/dL (12.0-15.0); Mean Corpuscular HGB Conc 31.8 g/dl (32-36); Mean Corpuscular Hemoglobin 30.9 pg (26-34); Mean Corpuscular Volume 97.2 fl (80-100); Mean Platelet Volume 10.8 fl (7.4-10.4); Platelet Count Result 159 k/mm3 (150-375); Red Blood Count 3.59 M/mm3 (4.2-5.4); Red Cell Distribution Width 13.3 % (11.5-14.5); White Blood Count 8.8 K/mm3 (4.5-10.0)
[2023-02-15 05:41] LABS: Anion Gap 0 mmol/L (8-16); Blood Urea Nitrogen 17 mg/dL (7-17); Carbon Dioxide 29 mmol/L (22-30); Chloride 104 mmol/L (98-107); Estimated CRCL calculation 39 ml/min; Estimated Glomerular Filt Rate > 60; Glucose 117 mg/dL (65-110); Potassium 3.9 mmol/L (3.4-5.0); Sodium 133 mmol/L (137-145)
[2023-02-15] MEDS: SODIUM CHLOR 3% 15 ML NEB (RESPIRATORY THERAPY) 6 ML INHALATION (06:03)
[2023-02-15] MEDS: PSYLLIUM POWDER PACKET 1 PACKET PO (09:09)
[2023-02-15] MEDS: guaiFENesin 12 HR 600 MG TABCR PO ×2 (09:09→19:55)
[2023-02-15] MEDS: ENOXAPARIN 40 MG/0.4 ML SYRINGE SUB-Q (09:09)
[2023-02-15] MEDS: MULTIVITAMINS THERAPEUTIC TAB (*BKC) 1 TABLET PO (09:09)
--- NOTE | 2023-02-15 10:15 | PM.PNPUL ---
Progress Note: A&P Assessment and Plan (1) Bronchiectasis: Code(s): J47.9 - Bronchiectasis, uncomplicated Status: Acute (2) Emphysema lung: Code(s): J43.9 - Emphysema, unspecified Status: Acute (3) Acute respiratory failure with hypoxia: Code(s): J96.01 - Acute respiratory failure with hypoxia Status: Acute (4) Pneumonia: Qualifiers: Laterality: bilateral Lung location: unspecified part of lung Pneumonia type: due to unspecified organism Qualified Code(s): J18.9 - Pneumonia, unspecified organism Code(s): J18.9 - Pneumonia, unspecified organism Status: Acute Assessment and Plan: This 82-year-old female with 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 presented with complaints of generalized fatigue, left pleuritic chest pain, mild cough, and borderline hypoxemia.? Chest CT showed infiltrate left upper lobe which is definitely new as? in previous chest CT reports she had no evidence of left upper lobe infiltrates.? The patient has been on treatment for community-acquired pneumonia.? Her respiratory status has been unchanged over the last 24 hours. WBC back into the normal range. Plan:? Continue with current antibiotic regimen DVT prophylaxis supplemental oxygen.? I would culture sputum for AFBs as patient has known recurrence of nontuberculous mycobacterial infection, based on sputum cultures done in May of 2022.? The CT showed? pneumonic infiltrate which could be related to community-acquired pneumonia but? progression of nontuberculous mycobacterial infection is also likely.? Will follow the patient along with you. (5) History of Mycobacterium avium intracellulare infection: Code(s): Z86.19 - Personal history of other infectious and parasitic diseases Status: Acute Subjective Date/time seen: 02/15/23 10:15 Interval history: Patient has no new respiratory symptoms. Has no cough fever chills or hemoptysis. She remains on low-flow oxygen via nasal cannula spends most of the day in bed. WBC trending down on current antibiotic regimen Review of Systems Review of Systems: All systems reviewed & are unremarkable except as noted in HPI and below (HPI and below) Exam Narrative: GENERAL APPEARANCE: Well developed, looking chronically ill old female with no prior respiratory distress while on supplemental oxygen via nasal cannula SKIN: Inspection of the skin reveals no rashes, ulcerations or petechiae. HEENT: Sclerae anicteric and conjunctivae pink and moist. Extraocular movements were intact and pupils were equal. The oral mucosa, hard and soft palate, tongue and posterior pharynx were normal. NECK: Supple. There was no thyroid enlargement, and no tenderness, or masses were felt. CHEST: Normal AP diameter and normal contour without any kyphoscoliosis. LUNGS: Ray crackles left lateral chest CARDIAC: There was a regular rate and rhythm without any murmurs, gallops, rubs. ABDOMEN: Soft and nontender with normal bowel sounds. There was no organomegaly. LYMPH NODES: No lymphadenopathy was appreciated in the neck. EXTREMITIES: No cyanosis, clubbing or edema. NEUROLOGIC: Alert and oriented x 3. Normal affect. Objective Data Vital Signs Vital Signs: Vital Signs - 24 hr 02/14/23 14:00 02/14/23 14:32 02/14/23 20:00 Temperature 37.9 C H Pulse Rate 90 86 Respiratory Rate 16 20 Blood Pressure 103/40 L Pulse Oximetry 93 96 Oxygen Delivery Nasal Cannula Oxygen Flow Rate 3 02/14/23 21:11 02/14/23 21:12 02/14/23 21:33 Temperature 36.4 C L Pulse Rate 93 98 Respiratory Rate 20 22 H Blood Pressure 128/64 Pulse Oximetry 95 96 Oxygen Delivery Nasal Cannula Oxygen Flow Rate 3 02/15/23 02:38 02/14/23 21:25 02/15/23 02:50 T
--- NOTE | 2023-02-15 11:34 | PM.IMPN ---
Progress Note: A&P Assessment and Plan (1) Acute respiratory failure with hypoxia: Code(s): J96.01 - Acute respiratory failure with hypoxia Status: Acute Assessment and Plan: Secondary to pneumonia Continue oxygen and wean as tolerated (2) Multifocal pneumonia: Code(s): J18.9 - Pneumonia, unspecified organism Status: Acute Assessment and Plan: Continue ceftriaxone and azithromycin (3) History of Mycobacterium avium intracellulare infection: Code(s): Z86.19 - Personal history of other infectious and parasitic diseases Status: Acute Assessment and Plan: Continue pulmonary toilet Subjective Date/time seen: 02/15/23 11:34 Interval history: Tolerated PT. Tolerated diet. Still coughing. Minimally productive of white sputum. Left pleuritic pain much better, just soreness now. No other chest pain. Shortness of breath with ambulation. No GI or complaints. No abnormal bleeding. Review of Systems Review of Systems: Twelve systems were reviewed and are negative except for as per HPI. Exam Narrative: General: Thin, frail, moderately ill-appearing elderly female in NAD HEENT: PERRL, Sclera anicteric. Moist mucous membranes. Neck: Supple. Respiratory: Able to speak in full sentences and appears in no acute respiratory distress. NL effort. Nasal cannula in place. Lung sounds are are coarse with scattered LL crackles Cardiovascular: Regular rate and rhythm with S1-S2. Gastrointestinal: Abdomen is soft, flat, nontender, and nondistended with positive bowel sounds. Skin: Warm and dry. No rash or lesions on limited exam. Extremities: No cyanosis or clubbing. Neurological: Alert. Cranial nerves 3-12 are symmetric to visual inspection. Psychiatric: Pleasant and cooperative with normal mood and affect. Judgment and insight intact. A/O x 4. Objective Data Vital Signs Vital Signs: Vital Signs - 24 hr 02/14/23 14:00 02/14/23 14:32 02/14/23 20:00 Temperature 100.3 F H Pulse Rate 90 86 Respiratory Rate 16 20 Blood Pressure 103/40 L Pulse Oximetry 93 96 Oxygen Delivery Nasal Cannula Oxygen Flow Rate 3 02/14/23 21:11 02/14/23 21:12 02/14/23 21:33 Temperature 97.5 F L Pulse Rate 93 98 Respiratory Rate 20 22 H Blood Pressure 128/64 Pulse Oximetry 95 96 Oxygen Delivery Nasal Cannula Oxygen Flow Rate 3 02/15/23 02:38 02/14/23 21:25 02/15/23 02:50 Temperature Pulse Rate 87 95 90 Respiratory Rate 18 18 18 Blood Pressure Pulse Oximetry Oxygen Delivery Oxygen Flow Rate 02/15/23 05:29 02/15/23 07:55 02/15/23 08:05 Temperature 98.9 F Pulse Rate 86 88 90 Respiratory Rate 20 18 18 Blood Pressure 122/60 Pulse Oximetry 93 Oxygen Delivery Oxygen Flow Rate 02/15/23 09:36 Temperature Pulse Rate Respiratory Rate Blood Pressure Pulse Oximetry Oxygen Delivery Nasal Cannula Oxygen Flow Rate 2 Intake/Output Intake/Output: Intake & Output 02/12/23 02/13/23 02/14/23 02/15/23 23:59 23:59 23:59 23:59 Intake Total 300 1080 540 Output Total 600 300 Balance 300 480 240 Meds/Results Medications: Active Medications Generic Name Dose Route Start Last Admin Trade Name Freq PRN Reason Stop Dose Admin Acetaminophen 650 mg 02/13/23 21:46 Acetaminophen 325 Mg Tablet PO Q6H PRN Mild Pain (1-3) or Fever Albuterol 2.5 mg 02/14/23 02:00 02/15/23 07:57 Albuterol Sulfate Neb 2.5 Mg/3 Ml Inh INHALATION 2.5 mg Q6HRT CHELSEA Administration Enoxaparin Sodium 40 mg 02/14/23 09:00 02/15/23 09:09 Enoxaparin 40 Mg/0.4 Ml Syringe SUB-Q 40 mg DAILY CHELSEA Administration Guaifenesin 600 mg 02/14/23 09:00 02/15/23 09:09 Guaifenesin 12 Hr 600 Mg Tabcr PO 600 mg Q12HR CHELSEA Administration Ceftriaxone Sodium 1 gm in 50 mls @ 100 mls/hr 02/14/23 19:00 02/14/23 19:27 Rocephin 1 Gm/Ns 50 Ml IVPB Infused Q24H CHELSEA Infusion Azithromy
[2023-02-15] MEDS: AZITHROMYCIN 500 MG/NS 250 ML 500 MG/250 ML BAG 250 MG IVPB (19:58)
[2023-02-16] VITALS (13 sets, daily range): BP systolic 115–126; BP diastolic 58–62; PULSE 80–102; RESP 18–22; TEMP 36.6–36.8; O2SAT 86–95
[2023-02-16] MEDS: ALBUTEROL SULFATE NEB 2.5 MG/3 ML INH INHALATION ×3 (01:53→13:35)
[2023-02-16] MEDS: IPRATROPIUM BR 0.02% INH SOLN 0.5 MG/2.5 ML VIAL INHALATION ×3 (01:53→13:35)
[2023-02-16] MEDS: SODIUM CHLOR 3% 15 ML NEB (RESPIRATORY THERAPY) 6 ML INHALATION (03:00)
[2023-02-16 06:09] LABS: Hematocrit 34.6 % (37.0-47.0); Mean Corpuscular HGB Conc 31.8 g/dl (32-36); Mean Corpuscular Hemoglobin 31.3 pg (26-34); Mean Corpuscular Volume 98.3 fl (80-100); Mean Platelet Volume 11.1 fl (7.4-10.4); Platelet Count Result 185 k/mm3 (150-375); Red Blood Count 3.52 M/mm3 (4.2-5.4); Red Cell Distribution Width 13.2 % (11.5-14.5); White Blood Count 7.7 K/mm3 (4.5-10.0)
[2023-02-16 06:17] LABS: Anion Gap 2 mmol/L (8-16); Blood Urea Nitrogen 16 mg/dL (7-17); Calcium 8.1 mg/dL (8.4-10.2); Carbon Dioxide 31 mmol/L (22-30); Chloride 103 mmol/L (98-107); Estimated CRCL calculation 45 ml/min; Estimated Glomerular Filt Rate > 60; Glucose 105 mg/dL (65-110); Potassium 4.1 mmol/L (3.4-5.0); Sodium 136 mmol/L (137-145)
[2023-02-16] MEDS: MULTIVITAMINS THERAPEUTIC TAB (*BKC) 1 TABLET PO (09:14)
[2023-02-16] MEDS: ENOXAPARIN 40 MG/0.4 ML SYRINGE SUB-Q (09:14)
[2023-02-16] MEDS: guaiFENesin 12 HR 600 MG TABCR PO (09:14)
[2023-02-16] MEDS: PSYLLIUM POWDER PACKET 1 PACKET PO (09:14)
--- NOTE | 2023-02-16 10:35 | PM.PNPUL ---
Progress Note: A&P Assessment and Plan (1) Bronchiectasis: Code(s): J47.9 - Bronchiectasis, uncomplicated Status: Acute (2) Emphysema lung: Code(s): J43.9 - Emphysema, unspecified Status: Acute (3) Acute respiratory failure with hypoxia: Code(s): J96.01 - Acute respiratory failure with hypoxia Status: Acute (4) Pneumonia: Qualifiers: Laterality: bilateral Lung location: unspecified part of lung Pneumonia type: due to unspecified organism Qualified Code(s): J18.9 - Pneumonia, unspecified organism Code(s): J18.9 - Pneumonia, unspecified organism Status: Acute Assessment and Plan: This 82-year-old female with 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 presented with complaints of generalized fatigue, left pleuritic chest pain, mild cough, and borderline hypoxemia.? Chest CT showed infiltrate left upper lobe which is definitely new as? in previous chest CT reports she had no evidence of left upper lobe infiltrates.? The patient has been on treatment for community-acquired pneumonia.? Her respiratory status has been unchanged over the last 24 hours. WBC back into the normal range. Plan:? Respiratory status stable over last 24 hours; continue with current antibiotic regimen DVT prophylaxis supplemental oxygen; out of bed to chair. (5) History of Mycobacterium avium intracellulare infection: Code(s): Z86.19 - Personal history of other infectious and parasitic diseases Status: Acute Subjective Date/time seen: 02/16/23 10:35 Interval history: Patient doing little better. She now has mild cough with sputum production. She has no fever. She remains on supplemental oxygen via nasal cannula oxygen flow now lower than before. No other respiratory symptoms. Review of Systems Review of Systems: All systems reviewed & are unremarkable except as noted in HPI and below (HPI and below) Exam Narrative: GENERAL APPEARANCE: Well developed, looking chronically ill old female with no prior respiratory distress while on supplemental oxygen via nasal cannula SKIN: Inspection of the skin reveals no rashes, ulcerations or petechiae. HEENT: Sclerae anicteric and conjunctivae pink and moist. Extraocular movements were intact and pupils were equal. The oral mucosa, hard and soft palate, tongue and posterior pharynx were normal. NECK: Supple. There was no thyroid enlargement, and no tenderness, or masses were felt. CHEST: Normal AP diameter and normal contour without any kyphoscoliosis. LUNGS: Ray crackles left lateral chest CARDIAC: There was a regular rate and rhythm without any murmurs, gallops, rubs. ABDOMEN: Soft and nontender with normal bowel sounds. There was no organomegaly. LYMPH NODES: No lymphadenopathy was appreciated in the neck. EXTREMITIES: No cyanosis, clubbing or edema. NEUROLOGIC: Alert and oriented x 3. Normal affect. Objective Data Vital Signs Vital Signs: Vital Signs - 24 hr 02/15/23 14:05 02/15/23 14:13 02/15/23 14:15 Temperature Pulse Rate 86 91 Respiratory Rate 18 18 Blood Pressure Pulse Oximetry 95 Oxygen Delivery Nasal Cannula Oxygen Flow Rate 2 02/15/23 14:00 02/15/23 20:02 02/15/23 20:02 Temperature 36.6 C Pulse Rate 93 88 Respiratory Rate 14 18 Blood Pressure 118/60 Pulse Oximetry 94 95 Oxygen Delivery Nasal Cannula Oxygen Flow Rate 2 02/15/23 20:14 02/15/23 20:00 02/15/23 20:47 Temperature 36.6 C Pulse Rate 92 100 Respiratory Rate 18 20 Blood Pressure 122/65 Pulse Oximetry 94 94 Oxygen Delivery Nasal Cannula Oxygen Flow Rate 3 02/16/23 01:54 02/16/23 02:09 02/16/23 04:20 Temperature 36.6 C Pulse Rate 101 H 96 88 Respiratory Rate 20 20 18 Blood Pressure 126/58 L
--- NOTE | 2023-02-16 10:42 | PCDIET ---
Dietitian screen for BMI: 16.7.underweight. Spoke with patient today, weight has been stable. She states to eating a regular diet at home. Current diet order is Regular, consuming 50-100% of meals. Patient is not interested in diet supplements. Agree with diet orders. No further nutritional interventions needed at this time.
--- NOTE | 2023-02-16 11:00 | PM.DS ---
DS: Admitting Diagnosis Discharge Date 02/16/23 1100 Admitting Diagnosis Atypical pneumonia DS: Discharge Diagnosis Discharge Diagnosis (1) Acute respiratory failure with hypoxia: Code(s): J96.01 - Acute respiratory failure with hypoxia Status: Acute Assessment and Plan: Secondary to pneumonia Continue oxygen and wean as tolerated saturations noted to be in the high 80s Home oxygen evaluation (2) Multifocal pneumonia: Code(s): J18.9 - Pneumonia, unspecified organism Status: Acute Assessment and Plan: Continue ceftriaxone and azithromycin Convert to PO levaquin AFB sputum pending Pulm consulted WBC stable (3) History of Mycobacterium avium intracellulare infection: Code(s): Z86.19 - Personal history of other infectious and parasitic diseases Status: Acute Assessment and Plan: Continue pulmonary toilet DS: Summary Hospital Course Hospital Course: patient 82 year old female with a past medical history of Mycobacterium avium intracellulare infection with bronchiectasis/COPD and constipation who presented the ED with complaints of generalized weakness. CT of the chest showed no pulmonary embolism however did showed infiltrate that was consistent with multiple Vicryl pneumonia. Chest x-ray showed right upper lobe airspace opacities which could reflect scarring versus pneumonia nodule of the lingula/left lower lobe Patient was started on azithromycin and ceftriaxone. Pulmonary was consulted. supplemental oxygen has been provided as the patient was noted to have saturation in the high 80s. Home O2 eval was also performed. PT and OT has worked with the patient and patient was doing ok and was recommended to outpatient therapy. patient still does have a cough however it has improved. currently she denies any chest pain, shortness a breath, nausea, fevers, sweats, chills. Constipation was a complaint however she stated that it is being treated with Metamucil. Home oxygen eval was preformed and patient was noted to need 2 LNC at all times. She is stable for discharge per labs and vital signs. Status at Discharge Functional status at discharge: uses cane/walker Overall status at discharge: patient is progressing back to baseline Time Spent with Patient Time attestation: Total time spent providing and/or coordinating discharge services: 41 minutes Time spent: Greater than 30 minutes Specific discharge activities: Diagnostic testing, chart review, developing a treatment plan, education, care coordination documentation, physical exam, result review Exam Narrative: General: well-nourished, well-appearing 82-year-old female, laying in bed, comfortable, NARD Neuro: awake, alert and oriented x4, speech clear, no focal neuro deficits noted HEENMT: normocephalic, atraumatic, EOMI, sclerae anicteric, moist oral mucosa Respiratory: Clear to auscultation bilaterally without crackles, rhonchi or wheezes, nonlabored breathing Cardio: regular rate, regular rhythm with S1-S2 Abdomen: nondistended, normoactive bowel sounds, soft, nontender to palpation Extremities: no edema, erythema, or tenderness to palpation, DP pulses 2+ bilaterally Skin: no rashes or lesions, warm and dry Psych: appropriate mood and affect, judgment and insight intact DS: Data Data Completed and Pending Labs on day of discharge: Labs from last 24 hours 02/16/23 05:24 WBC 7.7 RBC 3.52 L Hgb 11.0 L Hct 34.6 L MCV 98.3 MCH 31.3 MCHC 31.8 L RDW 13.2 Plt Count 185 MPV 11.1 H Sodium 136 L Potassium 4.1 Chloride 103 Carbon Dioxide 31 H Anion Gap 2 L BUN 16 Creatinine 0.60 L Estim Creat Clear Calc 45 Estimated GFR > 60 Glucose 105 Calcium 8.1 L Preliminary micro results at discharge 02/13/23 18:03 Blood Culture - Preliminary Blood 02/13/23 18:03 Blood Culture - Preliminary Blood Discharge Plan Disc
--- NOTE | 2023-02-16 14:00 | PCRCNOTE ---
Pt. taken off oxygen after neb treatment for Pulmonary Function to come and do home oxygen evaluation. Both PFT therapist and Iman[facility] notified Pt. was taken off her oxygen for the evaluation.
--- NOTE | 2023-02-16 14:23 | HOMEO2EVAL ---
Evaluation was performed at [facility] Home Oxygen Evaluation RC: Home Oxygen (O2) Evaluation Start: 02/16/23 13:50 Freq: ONCE Status: Active Protocol: RPE Activity Type Activity Date Activity User E-sign Co-sign Detail Recorded Client Recorded Date Recorded By Document 02/16/23 14:06 KRM [email or web address] 02/16/23 14:23 KRM Document 02/16/23 14:07 KRM [email or web address] 02/16/23 14:23 KRM Document 02/16/23 14:08 KRM [email or web address] 02/16/23 14:23 KRM Document 02/16/23 14:12 KRM [email or web address] 02/16/23 14:23 KRM 02/16/23 02/16/23 02/16/23 14:06 14:07 14:08 Home O2 Evaluation [Oxygen] -Test Phase Resting Resting Resting -Oxygen Delivery Room Air Nasal Cannula Nasal Cannula -Oxygen Flow Rate (L/min) 1 2 [Pulse Oximetry] -Pulse Oximetry (90-100 %) 86 L 88 L 90 [Pulse Rate] -Pulse Rate (60-100 beats/min) 99 101 H 101 H [Evaluation] -Activity Tolerance [Exercise] -Ambulation Distance (feet) -Ambulation Distance (meters) [Comments] -Home Oxygen Evaluation Comments [Charges] -Treatment Charges 02/16/23 14:12 Home O2 Evaluation [Oxygen] -Test Phase Exercise -Oxygen Delivery Nasal Cannula -Oxygen Flow Rate (L/min) 2 [Pulse Oximetry] -Pulse Oximetry (90-100 %) 89 L [Pulse Rate] -Pulse Rate (60-100 beats/min) 102 H [Evaluation] -Activity Tolerance Fair [Exercise] -Ambulation Distance (feet) 100 -Ambulation Distance (meters) 30.47 [Comments] -Home Oxygen Evaluation Comments 2 AT REST AND WITH ACTIVITY. [Charges] -Treatment Charges O2 Evaluation - Inpatient
--- NOTE | 2023-02-16 14:58 | PCRCNOTE ---
HOME O2 EVALUATION COMPLETED. PT. REQUIRES 2LPM AT REST AND WITH ACTIVITY. SENT INFO TO [facility]. INSURANCE APPROVED, POC TO BE DELIVERED TODAY AT BEDSIDE.
[2023-02-17 14:54] LABS: Pneumococcal Antigen Urine Not Detected (Not Detected)
[2023-02-18 04:26] LABS: Legionella pneumophila Ag Ur Not Detected (Not Detected)
[2023-02-18 13:16] LABS: Mycoplasma IgM Antibody Titer 44 U/mL (<770)
== END 2023-02-16 18:13 | disposition home health service (06) | DRG 193 ==
LOC: ANHED 19:51 → ANH3MED 21:21
PROVIDERS: Emergency Medicine; Internal Medicine; Physician Assistant; Admitting Provider Internal Medicine; Emergency Provider Physician Assistant; PCP Family Medicine; Visit Provider Nurse Practitioner
DX: J18.8 Other pneumonia, unspecified organism (principal); J96.01 Acute respiratory failure with hypoxia; J47.0 Bronchiectasis with acute lower respiratory infection; M81.0 Age-related osteoporosis without current pathological fracture; Z20.822 Contact with and (suspected) exposure to COVID-19; Z86.19 Personal history of other infectious and parasitic diseases
CPT/HCPCS: 36415; 36600; 71045; 71275; 80048; 80053; 82375; 82805; 83036; 83050; 83605; 83880; 84484; 85025; 85027; 85380; 85610; 85730; 86738; 87015; 87040; 87116; 87206; 87449; 87636; 87899; 93005; 93970; 94618; 94640; 94667; 94668; 96365; 96366; 96367; 96372; 97116; 97161; 97165; 99285; A9270; G0378; J0456; J0696; J1650; Q9967

== ENCOUNTER 2023-04-13 14:31 | Outpatient (CLI) | payer MEDICARE, SELFPAY ==
--- NOTE | 2023-04-14 13:45 | WPDPFTINT ---
PFT Procedure Performed PFT Procedure Performed Spirometry with Pre/Post Bronchodilator Plethysmography (Lung Vol) Diffusing Cap (DLCO) Flow Vol Loop PFT Interpretation Lung volumes were measured with the body plethysmography method. The elevated FRC and RV could be related to air trapping. Spirometry showed diminished expiratory flow rates and a diminished FEV1 to FVC ratio 60%, indicative of obstructive airway disease. Following administration of a bronchodilator there was no significant increase in expiratory flow rates. Lung diffusion capacity is moderately reduced at 56% predicted. The flow volume loop is consistent obstructive airway disease. Impression: Moderate obstructive airway disease with evidence of air trapping and no response to bronchodilators on this testing. Moderately reduced lung diffusion capacity.
--- NOTE | 2023-04-14 13:47 | WPDSIXMINUTE ---
Six Minute Walk Procedure Procedure Performed Pulmonary Stress Test (6 min walk) Six Minute Walk Six Minute Walk: This 6 minute walk test was carried out with the patient breathing ambient air. The pre walk baseline oxyhemoglobin saturation was 94%. The patient walked 305 m with no stops during walking. During the walk the oxyhemoglobin saturation remained in the range of 91% to 94%. Impression: No evidence of oxyhemoglobin desaturation on this testing.
== END 2023-04-13 14:32 | disposition home or self-care (01) ==
LOC: ANHPFT 14:33
PROVIDERS: PCP Family Medicine; Visit Provider Internal Medicine Pulmonary Disease
DX: J43.9 Emphysema, unspecified (principal); R94.2 Abnormal results of pulmonary function studies
CPT/HCPCS: 94060; 94618; 94726; 94729

== ENCOUNTER 2023-04-14 14:55 | Outpatient (CLI) | payer MEDICARE, SELFPAY ==
--- NOTE | ~2023-04-14 | XR_ITS ---
XR chest 2V 04/14/2023 15:27 Indication: Pneumonia Procedure: 2 view chest Comparison: Comparison to multiple prior studies sequentially, with oldest reviewed study dated 12/2013. Findings: Chronic apical scarring/pleural thickening. The lungs are hyperinflated which is consistent with, but not diagnostic of chronic obstructive pulmonary disease. Heart size normal. No focal air s pace disease, pulmonary edema, pleural effusion or suspected pneumothorax. Impression: 1: No acute cardiopulmonary disease. Reviewed, dictated and finalized at location L. Impression: 1: No acute cardiopulmonary disease.
== END 2023-04-14 14:56 | disposition home or self-care (01) ==
PROVIDERS: PCP Family Medicine; Visit Provider Internal Medicine Pulmonary Disease
DX: J18.9 Pneumonia, unspecified organism (principal)
CPT/HCPCS: 71046

== ENCOUNTER 2023-05-01 15:17 | Outpatient (CLI) | payer MEDICARE, SELFPAY ==
--- NOTE | ~2023-05-01 | MM_ITS ---
EXAMINATION: MM screening dorothy BI w nicki HISTORY: Screening TECHNIQUE: Craniocaudal and mediolateral oblique 3-D tomosynthesis images were obtained and synthetic 2-D images were generated. CAD analysis was submitted and interpreted. COMPARISON: Comparison to multiple prior studies sequentially, with oldest reviewed study dated 07/2015. BREAST PARENCHYMAL COMPOSITION: The breasts are extremely dense, which lowers the sensitivity of mamm ography. FINDINGS: There is no evidence of suspicious mass, calcification, or architectural distortion to sugg est malignancy in either breast. There has been no suspicious interval change. IMPRESSION: 1. No mammographic evidence of malignancy. 2. Recommend routine screening mammography in one year. BI-RADS Category 1: Negative Reviewed, dictated and finalized at location A. ERCIAL DIVER
== END 2023-05-01 15:18 | disposition home or self-care (01) ==
LOC: ANHIMG 15:20
PROVIDERS: PCP Family Medicine; Visit Provider Family Medicine
DX: Z12.31 Encounter for screening mammogram for malignant neoplasm of breast (principal)
CPT/HCPCS: 77063; 77067

== ENCOUNTER 2023-09-05 13:20 | Emergency (ER) | payer MEDICARE, SELFPAY ==
--- NOTE | ~2023-09-05 | CT_ITS ---
EXAMINATION: CT brain wo con DATE: 09/05/2023 15:50 INDICATION: trauma . TECHNIQUE: Computed tomography (CT) of the head was performed without intravenous contrast. The mA wa s adjusted according to patient size. Iterative reconstruction technique was employed. The dose-lengt h product was 605.33 mGy-cm. COMPARISON: 10/15/2022. FINDINGS: No acute intracranial hemorrhage or extra-axial fluid collection. No hydrocephalus, mass, or herniation. No acute ischemic infarct. Unremarkable dural venous sinus attenuation. No acute osseous abnormality. Right sphenoid retention cyst/polyp, mild right maxillary mucosal thickening, the remaining aerated s paces are clear. IMPRESSION: No acute intracranial process. Reviewed, dictated and finalized at location K.
--- NOTE | ~2023-09-05 | CT_ITS ---
EXAMINATION: CT cervical spine wo con DATE: 09/05/2023 15:50 INDICATION: trauma TECHNIQUE: Computed tomography (CT) of the cervical spine was performed without intravenous contrast. Automated exposure control and iterative reconstruction technique were employed. The dose-length pro duct was 96.44 mGy-cm. COMPARISON: 10/15/2022. FINDINGS: Vertebral Body Alignment: Intact. Craniocervical and atlantoaxial alignment: Moderate degenerative change. Alignment intact. Osseous structures/fracture: No evidence of a lytic or blastic process in the visualized spine. No e vidence of acute fracture. Cervical soft tissues: The paraspinal soft tissues planes are maintained. Biapical pleural scarring. Degenerative changes: Degenerative changes, without severe neural foraminal or central canal narrowin g. IMPRESSION: No acute fracture or traumatic malalignment in the cervical spine. Reviewed, dictated and finalized at location K.
--- NOTE | ~2023-09-05 | CT_ITS ---
EXAMINATION: CT diagnostic chest wo con, CT thoracic spine wo con DATE: 09/05/2023 15:54 INDICATION: fall, hit back TECHNIQUE: Computed tomography (CT) of the chest and thoracic spine was performed without intravenous contrast. Automated exposure control and iterative reconstruction technique were employed. The dose- length product was 133.62 mGy-cm. COMPARISON: CTPA 02/13/2023. FINDINGS: CHEST: Thoracic aorta: Moderate arch calcification. No significant dilation. Decreased blood pool density as can be seen with anemia or. Lung parenchyma and airways: Biapical pleural scarring. Scattered sub-6 mm stable pulmonary nodules, likely benign. Very mild scattered tree-in-bud opacities and mild mosaic attenuation. Thoracic inlet, axillae and chest wall: No thyroid or soft tissue mass. No axillary lymphadenopathy. Mediastinum: No mass or lymphadenopathy. Heart and pericardium: Normal heart size. No pericardial effusion. Coronary artery calcifications: Mild. Pleura: No effusion or mass. Upper abdomen: No significant finding. Thoracic bones: No acute osseous finding in the chest. THORACIC SPINE: Vertebral body alignment intact. Thoracic kyphosis. Vertebral body heights preserved. Multilevel mild -moderate degenerative disc disease. Mild superior and inferior endplate deformity at T2, new since t he comparison study. IMPRESSION: Mild compression deformity at T2, new since the prior examination. Mild scattered tree-in-bud opacities as can be seen with atypical infection, ABPA, airways disease, a nd aspiration. Mild mosaic attenuation which can be seen with asthma, bronchitis obliterans, hypersensitivity pneumo nitis, and chronic embolic disease. Reviewed, dictated and finalized at location K. IMPRESSION: Mild compression deformity at T2, new since the prior examination. Mild scattered tree-in-bud opacities as can be seen with atypical infection, AB PA, airways disease, and aspiration. Mild mosaic attenuation which can be seen with asthma, bronchitis obliterans, h ypersensitivity pneumonitis, and chronic embolic disease.
--- NOTE | ~2023-09-05 | XR_ITS ---
EXAMINATION: XR wrist RT min 3V DATE: 09/05/2023 13:42 INDICATION: Right wrist pain post fall TECHNIQUE: Posteroanterior, ulnar deviation, oblique, and lateral views of the right wrist were obtai mayur. COMPARISON: none FINDINGS: Alignment is normal. No fracture. Mild osteoarthritis at the distal radioulnar joint with subarticula r cystlike change at the ulnar side of the joint space. Additional mild osteoarthritis at the first c arpometacarpal joint. . Soft tissue swelling about the wrist. IMPRESSION: 1. 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 No acute os seous abnormality. Reviewed, dictated and finalized at location A. IMPRESSION: 1. Mild osteoarthritis at the right distal radioulnar and first carpal metacarp al joints. No acute osseous abnormality.
[2023-09-05 13:31] VITALS: BP 120/52; PULSE 73; RESP 18; TEMP 36; O2SAT 94
--- NOTE | 2023-09-05 14:23 | ED.FALL ---
HPI - Fall General Chief Complaint: Fall Stated Complaint: Fall, Wrist and Head Pain Time Seen by Provider: 09/05/23 14:14 History of Present Illness HPI Narrative: Patient is an 82-year-old female with history of COPD here with right wrist pain after a fall. She states that around 5:00 a.m. this morning she was getting up to go to the bathroom, walking and socks when she believes she slipped and fell down onto her upper back, posterior head and right wrist. She was able to get herself off the ground after about 5 minutes and proceed into the bathroom. She is currently complaining of some right wrist pain. She notes that she was doing some activities around her house and thought that maybe the wrist pain would improve however given the pain was persistent and worse with any movement she proceeded to the emergency department for evaluation of possible fracture. She does not take blood thinners, does not take a baby aspirin, does not believe that she lost consciousness when she fell. She is right-hand dominant. Related Data Home Medications Medication Instructions Recorded Confirmed multivitamin 1 tablet PO DAILY 02/13/21 07/02/23 omega-3 fatty acids 1,000 mg 1,000 mg PO DAILY 02/13/21 07/02/23 capsule (Fish Oil Concentrate) psyllium 1 packet PO DAILY 02/13/23 07/02/23 hydrocortisone 2.5 % topical topical 04/14/23 07/02/23 ointment imiquimod 5 % topical cream packet topical 04/14/23 07/02/23 Allergies Allergy/AdvReac Type Severity Reaction Status Date / Time codeine Allergy Unknown Unknown Verified 09/05/23 14:41 Review of Systems Review of Systems: All systems reviewed & are unremarkable except as noted in HPI and below PMFSH Past Medical History Medical History Bronchiectasis Chronic constipation Chronic obstructive pulmonary disease Mycobacterium avium-intracellulare infection Followed by [facility]. Osteoporosis Surgical History Surgical History History of cataract extraction History of foot surgery History of bone spur removal in bunionectomy. History of nasal septoplasty Family History Family History Sibling Patient's sister is in good health Eczema Seafood allergy Father Family history of coronary artery disease Social History Social History Social History: Surrogate medical decision maker: Cynthia Valdes, sister. Code status: Smoking status: Never smoker Second hand tobacco smoke exposure: No Alcohol intake: current Substance use: never Substance use type: does not use Lack of Transportation: No Lack of Food: Never True Current Housing: I Have Housing Concerned About Future Housing: No Difficulty Paying Gas/Electric Bills: No Difficulty Paying for Meds: No Currently Unemployed: No Education: Bachelor's Degree Difficulty w/ Childcare or Family Care: No Living arrangements: alone Additional living arrangements comments: The patient lives in her own home in [place]. She lives at home with her small dog, Chana. She never and has no children. 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 Spiritual care concerns: No Exam Narrative: GENERAL: Well-appearing, well-nourished, and in no acute distress. HEAD: Normocephalic, mild tenderness over the left posterior occiput, no obvious hematoma, laceration, abrasion. EYES: PERRLA and EOMI. ENT: Nares clear. Mucous membranes moist. NECK: Supple. No midline cervical spine tenderness. CHEST: Clear to auscultation. No respiratory distress. HEART: Regular rate and rhythm. Normal peripheral pulses. ABDOMEN: Soft, nontender, nondistended. EXTREMITIES: No midline thoracic or lumbar tenderness.
[2023-09-05] MEDS: ACETAMINOPHEN 325 MG TABLET 650 MG PO (15:13)
== END 2023-09-05 17:43 | disposition home or self-care (01) ==
PROVIDERS: Emergency Provider Student in an Organized Health Care Education/Training Program; PCP Family Medicine
DX: S69.91XA Unspecified injury of right wrist, hand and finger(s), initial encounter (principal); S22.020A Wedge compression fracture of second thoracic vertebra, initial encounter for closed fracture; J44.9 Chronic obstructive pulmonary disease, unspecified; M81.0 Age-related osteoporosis without current pathological fracture; Z98.49 Cataract extraction status, unspecified eye; M19.031 Primary osteoarthritis, right wrist; W01.0XXA Fall on same level from slipping, tripping and stumbling without subsequent striking against object, initial encounter
CPT/HCPCS: 29125; 70450; 71250; 72125; 72128; 73110; 99284; A4565; A9270

== ENCOUNTER 2023-09-28 10:31 | Outpatient (CLI) | payer MEDICARE, SELFPAY ==
--- NOTE | ~2023-09-28 | XR_ITS ---
EXAM: XR thoracic spine 3V DATE: 09/28/2023 10:53 HISTORY: S22.029A - Unspecified fracture of second thoracic verteb... . COMPARISON: CT T-spine 09/05/2023. FINDINGS: Decreased osseous mineralization. Vertebral body alignment intact. Exaggerated kyphosis. Mi ld stable superior and inferior endplate deformity at T2, remaining vertebral body heights are mainta ined. Mild multilevel disc space narrowing and marginal osteophytosis. No traumatic malalignment or f racture. Biapical pleural scarring. IMPRESSION: Osteopenia with kyphosis. Stable mild T2 compression deformity. Mild multilevel degenerat shawn disc disease. Reviewed, dictated and finalized at location K. IMPRESSION: Osteopenia with kyphosis. Stable mild T2 compression deformity. Mil d multilevel degenerative disc disease.
== END 2023-09-28 10:32 | disposition home or self-care (01) ==
LOC: ANHIMG 10:36
PROVIDERS: PCP Family Medicine; Visit Provider Physician Assistant
DX: S22.029A Unspecified fracture of second thoracic vertebra, initial encounter for closed fracture (principal); X58.XXXA Exposure to other specified factors, initial encounter; M85.88 Other specified disorders of bone density and structure, other site; M51.34 Other intervertebral disc degeneration, thoracic region
CPT/HCPCS: 72072

== ENCOUNTER 2024-02-10 10:58 | Outpatient (CLI) | payer MEDICARE, SELFPAY ==
[2024-02-10 12:25] LABS: Influenza A QL RT-PCR Negative (Negative); Influenza B QL RT-PCR Negative (Negative); RSV RNA, RT-PCR Negative (Negative); SARS-CoV-2 RNA PCR Positive (Negative)
== END 2024-02-10 10:59 | disposition home or self-care (01) ==
LOC: ANHLAB 10:59
PROVIDERS: PCP Family Medicine; Visit Provider Physician Assistant
DX: U07.1 COVID-19 (principal)
CPT/HCPCS: 87637

== ENCOUNTER 2024-10-28 11:47 | Emergency (ER) | payer MEDICARE, SELFPAY ==
--- NOTE | ~2024-10-28 | CT_ITS ---
CT abdomen pelvis w con Ordering provider: Anahi Dee PA-C History: 83 years Female with . abd pain, nausea . Comparison: October 05, 2014 Technique: CT abdomen and pelvis with IV and without oral contrast. Automated exposure control and it erative reconstruction technique were employed. The dose-length product was 182.50 mGy-cm. 100 mL Omn ipaque 350 was given IV. Findings: VISUALIZED LOWER CHEST: Dependent atelectatic changes. UPPER ABDOMINAL ORGANS: Liver: Multiple cysts are seen in the liver. Gallbladder: No cholelithiasis. Spleen: Normal. Stomach/duodenum: Small sliding hiatus hernia. Pancreas: Normal. Prominent pancreatic duct. Follow-up advised. Adrenals: Normal. Kidneys: Normal. Prominent left renal vein. PELVIC ORGANS: The bladder is underfilled with thickened wall. BOWEL AND MESENTERY: Colon: No evidence of diverticulitis. Slightly thickened transverse colon wall which may indicate col itis. The appendix is not demonstrated. Small Bowel: Normal. No obstruction. Peritoneum/mesentery: No free air or free fluid. No mesenteric lymphadenopathy. RETROPERITONEUM: Mild atheromatous disease of the abdominal aorta. Slight narrowing at the origin of the celiac artery. No retroperitoneal lymphadenopathy. MUSCULOSKELETAL: Superficial soft tissues: The superficial soft tissues are normal. Bones: Age appropriate degenerative changes of the spine. Bilateral sacroiliacs. IMPRESSION: 1. No evidence of appendicitis, diverticulitis or intestinal obstruction. 2. Multiple hepatic cysts. 3. Sliding hiatus hernia. 4. Slightly thickened wall of the transverse colon which may indicate colitis. Clinical correlation advised. Reviewed, dictated and finalized at location A.
[2024-10-28 11:48] VITALS: BP 152/76; PULSE 73; RESP 20; TEMP 36.6; O2SAT 95
--- OUTSIDE RECORDS SUMMARY | 2024-10-28 11:49 | XMS_ITS | Referral Summary ---
Author Organization [facility] [place] [address] [facility] [address] Address [address] [place] [address] Care Team Providers Care Experimental Outboard Motors Mechanic Name Role Phone Luis Manuel Kaur MD Primary Care Provider Genna Pearson RN Unavailable Unavailabl e Allergies Active Allergy Reactions Criticality Noted Date Comments Codeine Nausea only Low 07/26/2019 Medications docosahexanoic acid/epa (FISH OIL ORAL) Take by mouth daily Active multivitamin capsule Take 1 capsule by mouth daily Active psyllium husk (METAMUCIL ORAL) Take by mouth as needed Active vit A/vit C/vit E/zinc/copper (ICAPS AREDS ORAL) Take by mouth daily Active docusate sodium (COLACE) 100 mg capsuleIndicati ons:constipatio n Take 1 capsule (100 mg total) by mouth 2 (two) times a day 60 capsule 2 2 Active albuterol HFA (PROVENTIL HFA,VENTOLIN HFA,PROAIR HFA) 90 mcg/actuation inhaler INHALE 1 PUFF BY MOUTH EVERY 6 HOURS NEEDED FOR SHORTNESS OF BREATH OR WHEEZING 4 Active albuterol 2.5 mg /3 mL (0.083 %) nebulizer solution USE 1 VIAL IN NEBULIZER 4 TIMES DAILY 120 mL 11 5 Active Active Problems Problem Noted Date Diagnosed Date Lower abdominal pain 01/08/2024 Assessment & Plan (07/06/2024 2:18 PM ELEVATOR OPERATOR FREIGHT): Doing better since her bowels have become better regulated. Counseled to continue Metamucil and Colace. Assessment & Plan (01/08/2024 6:33 AM CDT): New onset. Mild to really severe. May be due to diverticular disease or other inflammatory process in the lower abdomen. Previous colonoscopy report was reviewed. (May 2022). Revealed diverticulosis and small polyps removed. Will obtain CT scan abdomen and pelvis. Encouraged to do high-fiber diet. Bloating 01/08/2024 Assessment & Plan (07/06/2024 2:18 PM ELEVATOR OPERATOR FREIGHT): Mild. She has a medication at home but did not feel the need to take it. She was counseled about diet and to try gas X Assessment & Plan (01/08/2024 6:33 AM CDT): Mild to moderately severe. She was counseled about diet and to try gas X Bronchiectasis without complication 04/28/2023 SATURNINO (mycobacterium avium-intracellulare) 023 Pulmonary nodule 04/28/2023 Chronic rhinitis 11/24/2022 Other constipation 05/13/2022 Assessment & Plan (07/06/2024 2:17 PM ELEVATOR OPERATOR FREIGHT): Chronic. She responds well to Metamucil and Colace. Advised to continue both medications and augmented water consumption. Blood in stool 05/13/2022 Fibrotic lung diseases Chronic obstructive pulmonary disease Immunizations Immunization Administration Dates Next Due Hep A, Adult 10/14/2005,04/15/2005 Influenza, Quad, Adjuvantate d, Intramuscular 02/28/2020 Influenza, Trivalent, High D ose, Split, Preservative Free, Intramuscular 03/13/2019,03/14/2018,03/15/2017,03/16,03/11/2015 Influenza, Trivalent, IM (MDV) 03/18/2013 Influenza, Trivalent, Preser vative Free, Intramuscular 04/03/2014 Pfizer SARS-CoV-2 Monovalent Vaccination (12+ Yrs) PURPLE 10/05/2021,03/20/2021,09/08/2020,08/18 Pinkdingo Sars-Cov-2 Bivalent V accination (12+ YRS) 03/12/2022 Pneumococcal Conjugate PCV 13 07/24/2017 Pneumococcal Conjugate Pcv20 06/06/2024 RSV Vaccine, Pref, Recombina nt, Subunit, Adjuvanted, PF, IM (Arexvy) 06/24/2023 Td, adsorbed 08/20/2004 Tdap 02/24/2017 Social History Tobacco Use Types Packs/Day Years Used Date Smoking Tobacco: Never Smokeless Tobacco: Never Tobacco Cessation:Counseling Given: Not Answered AUDIT-C Answer Date Recorded Q1: How often [...] on file Legal Sex Female 6:51 PM ELEVATOR OPERATOR FREIGHT Gender Identity Not on file Sexual Orientation Not on file Last Filed Vital Signs Vital Sign Reading Time Taken Comments Blood Pressure 121/62 07/06/2024 1:32 PM ELEVATOR OPERATOR FREIGHT Pulse 67 07/06/2024 1:32 PM ELEVATOR OPERATOR FREIGHT Temperature 36.4 C (97.6 F) 06/06/2024 10:46 AM ELEVATOR OPERATOR FREIGHT Respiratory Rate 18 06/06/2024 10:46 AM ELEVATOR OPERATOR FREIGHT Oxygen Saturation 94% 07/06/2024 1:32 PM ELEVATOR OPERATOR FREIGHT Inhaled Oxygen Concentration - - Weight 50.3 kg (111 lb) 07/06/2024 1:32 PM ELEVATOR OPERATOR FREIGHT Height 160 cm (5' 3 ) 07/06/2024 1:32 PM ELEVATOR OPERATOR FREIGHT Body Mass Index 19.66 07/06/2024 1:32 PM ELEVATOR OPERATOR FREIGHT Plan of Treatment Not on file Insurance MEDICARE T SENIOR SUPPLEMENT Member Subscriber Plan / Payer (Ef fective 2019-Present) Name:Shelton Cheema Relation to Subscriber:Self Name:Shelton Cheema Payer ID:[id number] Group ID:Not on file Type:[employer] Address: [address] [address] [place] [address] AETNA MEDICARE GOLD AETNA MEDICARE GOLD Advance Directives For more information, please contact: [phone] Documents on File Type Date Recorded Patient Rheumatologist Expl anation ADVANCE DIRECTIVE 09/21/2017 12:00 AM POWER OF AVIATION MAINTENANCE TECHNICIAN FINANCIAL/MEDICAL Care Teams Experimental Outboard Motors Mechanic Relationship Specialty Start Date End Date Luis Manuel Kaur MD [address] [facility] [address] [place] [address] PCP - General Family Medicine 03/24/18 eGnna Pearson, RN Registered Nurse Pulmonary Disease 08/05/22
--- OUTSIDE RECORDS SUMMARY | 2024-10-28 11:50 | XMS_ITS | Clinical Summary ---
Author Organization [facility] Address [address] [facility] [place] [address] Care Team Providers Care Head Chef Name Role Phone Omer Bar DO Primary Care Provider [phone] Source Comments [facility],non-owned Affiliates and Associated Physician Practices is amultiple site organization consisting of ambulatory clinics and hospital sitesin [place], [place], [place] and [place]. This disclosure is being madepursuant to the Care Everywhere program and may not contain all information available regarding this patient. Last updated 18.[facility] [employer] (ServiceCEO) Social History Tobacco Use Types Packs/Day Years Used Date Smoking Tobacco: Never Assessed Comments Unknown Sex and Gender Information Value Date Recorded Sex Assigned at Not on file Legal Sex Female 11:05 AM CDT Gender Identity Not on file Sexual Orientation Not on file Last Filed Vital Signs Vital Sign Reading Time Taken Comments Blood Pressure 118/68 09/28/2012 9:36 AM CDT Pulse 70 09/28/2012 9:36 AM CDT Temperature - - Respiratory Rate - - Oxygen Saturation - - Inhaled Oxygen Concentration - - Weight 54.4 kg (120 lb) 09/28/2012 9:36 AM CDT Height - - Body Mass Index - - Plan of Treatment Health Maintenance Due Date Last Done Comments BONE DENSITY TESTING 1940 MEDICARE AWV 12 MONTHS 1940 DTAP/TDAP/TD VACCINES (1 - Tdap) 1957 PNEUMOCOCCAL VACCINE 50+ (1 of 1 - PCV) 1988 ZOSTER VACCINE (1 of 2) 1988 Respiratory Syncytial Virus (RSV) Vaccine Pt: or over 60 yrs (1 - 1-dose 75+ series) 2013 COVID-19 VACCINE ( - 2023-2 5 season) 2024 DEPRESSION SCREENING 06/22/2024 INFLUENZA VACCINE (Season Ended) 2025 HEPATITIS B VACCINE Aged Out No longe r eligible based on patient's age to complete this topic HIB VACCINE Aged Out No longer eligi ble based on patient's age to complete this topic HPV VACCINE Aged Out No longer eligi ble based on patient's age to complete this topic MENINGOCOCCAL (Group B) VACC INE SHARED DECISION-MAKING Aged Out No longer eligibl e based on patient's age to complete this topic MENINGOCOCCAL GROUPS A/C/Y/W VACCINE Aged Out No longer eligible b ased on patient's age to complete this topic Insurance MEDICARE AET MEDICARE AETNA Care Teams Head Chef Relationship Specialty Start Date End Date Omer Bar DO PCP - General 12/01/19
--- OUTSIDE RECORDS SUMMARY | 2024-10-28 11:50 | XMS_ITS | Continuity of Care Document ---
Author Organization [facility] Address [address] [place] [address] [address] [place] [address] Phone Care Team Providers Care Bed Machine Operator Name Role Phone Heather Blanco Unavailable Unavailable Procedures Procedure Date Eye Exam & Treatment Eye Exam & Treatment Eye Exam & Treatment Refraction Advance Directives Directive Yes / No Effective Date File Name No Information Encounters Encounter Description Practice Location Reason(s) For Visit Diagnoses Date Provider Providers Copied on Encounter [facility], [address] [place] [address] [address], [place], [place], [id number], tel:[phone] [facility] No Information 1-200 [address] Bella Wong [address] [facility] , [address], [place], [place], [facility], [place]. tel:[phone] [facility], [address] [place] [address] [address], [place], [place], [id number], tel:[phone] [facility] No Information 8-200 8 Bella Wong [address] , [address], [place], [address], [place]. tel:[phone] [facility], [address] [place] [address] [address], [place], [place], [id number], [place] tel:[phone] [facility] No Information 3-[address] Bella Wong [address] , [address], [place], [place], [facility], [place]. tel:[phone] Family History Family Member Type Diagnosis Age At Onset No Information Payers Payer name Insurance type Covered alliance party ID Authoriza tion(s) [place] [id number] Social History Type Description Quantity Date Captured [...]
--- OUTSIDE RECORDS SUMMARY | 2024-10-28 11:50 | XMS_ITS | Clinical Summary ---
Author Organization [facility] [place] [address] [facility] [address] Address [address] [place] [address] Care Team Providers Care Etcher Machine Name Role Phone Luis Manuel Kaur MD [...] 01/08/2024 Assessment & Plan (07/06/2024 2:18 PM CHANNEL MARKETING COORDINATOR): Doing better since her bowels have become [...] 01/08/2024 Assessment & Plan (07/06/2024 2:18 PM CHANNEL MARKETING COORDINATOR): Mild. She has a medication at home [...] 05/13/2022 Assessment & Plan (07/06/2024 2:17 PM CHANNEL MARKETING COORDINATOR): Chronic. She responds well to Metamucil and [...] SARS-CoV-2 Monovalent Vaccination (12+ Yrs) PURPLE 10/05/2021,03/20/2021,09/08/2020,08/18 Ace Metrix Sars-Cov-2 Bivalent V accination (12+ YRS) 03/12/2022 Pneumococcal Conjugate PCV 13 07/24/2017 Pneumococcal Conjugate Pcv20 06/06/2024 RSV Vaccine, Pref, Recombina nt, Subunit, Adjuvanted, PF, IM (Arexvy) 06/24/2023 Td, adsorbed 08/20/2004 Tdap 02/24/2017 Surgical History Surgery Date Site/Laterality Comments EYE SURGERY FOOT SURGERY NOSE SURGERY COLONOSCOPY 05/28/2022 COLONOSCOPY 06/22/2018 - 06/21/2019 Medical History Medical History Date Comments Cancer (HCC) Cataracts, bilateral Depression Pneumonia Allergies Arthritis HL (hearing loss) TMJ dysfunction Osteoporosis Macular degeneration Chronic constipation GERD (gastroesophageal reflux disease) Rectal bleeding Allergic rhinitis Dental disease Fracture of nasal bones Family History Medical History Relation Name Comments Lung disease Father Eczema Mother Relation Name Status Comments Father Mother Social History Tobacco Use Types Packs/Day Years [...] on file Legal Sex Female 6:51 PM CHANNEL MARKETING COORDINATOR Gender Identity Not on file Sexual Orientation Not on file Obstetrics History Last Filed Vital Signs Vital Sign Reading Time Taken Comments Blood Pressure 121/62 07/06/2024 1:32 PM CHANNEL MARKETING COORDINATOR Pulse 67 07/06/2024 1:32 PM CHANNEL MARKETING COORDINATOR Temperature 36.4 C (97.6 F) 06/06/2024 10:46 AM CHANNEL MARKETING COORDINATOR Respiratory Rate 18 06/06/2024 10:46 AM CHANNEL MARKETING COORDINATOR Oxygen Saturation 94% 07/06/2024 1:32 PM CHANNEL MARKETING COORDINATOR Inhaled Oxygen Concentration - - Weight 50.3 kg (111 lb) 07/06/2024 1:32 PM CHANNEL MARKETING COORDINATOR Height 160 cm (5' 3 ) 07/06/2024 1:32 PM CHANNEL MARKETING COORDINATOR Body Mass Index 19.66 07/06/2024 1:32 PM CHANNEL MARKETING COORDINATOR Plan of Treatment Health Maintenance Due Date Last Done Comments Osteoporosis Screening-Bone Density Scan 1940 Hepatitis B Screening 1956 Zoster Vaccine (1 of 2) 1988 Well Visit 65+ 12/06/2003 Fall Risk Assessment 05/28/2023 05/28/2022 Depression Screening 09/17/2023 09/16/2022 Covid-19 Vaccine (2 5 season) 2024 03/12/2022, 10/05/2021, 03/20/2021, Additional history exists Influenza Vaccine (#1) 2024 , 03/13/2019, 03/14/2018, Additional history exists DTaP/Tdap/Td Vaccine (2 - Td or Tdap) 02/24/2027 02/24/2017, 08/20/2004 Pneumococcal vaccine 65+ Completed 06/06/2024, 07/2017 Insurance MEDICARE AETNA SENIOR SUPPLEMENT AETNA MEDICARE GOLD AETNA MEDICARE GOLD Advance Directives For more information, please contact: [phone] Documents on File Type Date Recorded Patient Consultant Teacher Expl anation ADVANCE DIRECTIVE 09/21/2017 12:00 AM POWER OF HABILITATION SPECIALIST FINANCIAL/MEDICAL Care Teams Etcher Machine Relationship Specialty Start Date End Date Luis Manuel Kaur MD [address] [place] [address] PCP - General Family Medicine 03/24/18 Genna Pearson, RN Registered Nurse Pulmonary Disease 08/05/22
--- OUTSIDE RECORDS SUMMARY | 2024-10-28 11:50 | XMS_ITS | Encounter Summary ---
Author Organization [facility] Address [address] [facility] [place] [address] Care Team Providers Care Data Transcriber Name Role Phone Tilatrang Omer James DO Primary Care Provider Encounter Details Date Type Department Care Team (Late st Contact Info) Description 06/12/2023 Lab Requisition [facility] - DermPath Lab [address] [place] [id number] Thien Oh MD [address] [place] [address] Social History Tobacco Use Types Packs/Day Years [...] Procedure Name Priority Date/Time Associated Diagnosis Comments DERMATOPATHOLOGY Routine 06/10/2023 3:33 AM SCRAP BUNCH MAKER documented in this encounter Results * DERMATOPATHOLOGY (06/10/2023 3:33 AM SCRAP BUNCH MAKER) Case Report Dermatopathology Report Case: [id number] Authorizing Provider: Thien Oh MD Collected: 06/10/2023 03:33 AM Ordering Location: [facility] DermPath Lab Received: 06/16/2023 08:08 AM Pathologist: Anahi Mullen MD Specimen: Skin, midline lower forehead 9:59 AM SCRAP BUNCH MAKER DERMATOPATHOLOGY LABORATORY Final Diagnosis Specimen A. SKIN, midline lower forehead: SQUAMOUS CELL CARCINOMA, WELL DIFFERENTIATED, WITH CYSTIC FEATURES (C44.329) (see microscopic description and comment) 9:59 AM [facility] DERMATOPATHOLOGY LABORATORY Clinical History R/O BCC< SCC 3 9:59 AM [facility] DERMATOPATHOLOGY LABORATORY Gross Description Specimen A: Received is one formalin filled container labeled with the patient's name and designated midline lower forehead. The specimen consists of a shave biopsy measuring 8x7x2 mm. Jar 0. 3 9:59 AM [facility] DERMATOPATHOLOGY LABORATORY Microscopic Description Specimen A. SKIN, midline lower forehead: Sections show a cystic proliferation composed of atypical keratinocytes that show ample eosinophilic cytoplasm and foci of keratinization. A p63 immunostain highlights rare angulated nests of atypical keratinocytes within the dermis. COMMENT: Though a trichoadenoma was briefly considered, the architectural and cytologic features favor classification as squamous cell carcinoma. This case has been reviewed by Dr. Kavita Mullen who concurs with the diagnosis. 9:59 AM [facility] DERMATOPATHOLOGY LABORATORY Disclaimer An external and internal positive and negative controls are appropriate for the histochemical, immunohistochemical and immunofluorescence stain(s) in this case (if any), except where stated explicitly. The performance characteristics of the stain(s) cited in this report were developed and its performance characteristic determined by the Dermatopathology Laboratory at [facility], directed by Dr. Shun Macias. These tests need not be, and therefore are not, approved by the [place] Food and Drug Administration. The tests are used for clinical purposes. Billing Codes Specimen Charges Stain Charges 06606 1 85020 1 3 9:59 AM [facility] DERMATOPATHOLOGY LABORATORY Embedded Images 3 9:59 AM [facility] DERMATOPATHOLOGY LABORATORY Pathology/Cytolo gy TISSUE SPECIMEN FROM SKIN / Unknown 06/10/2023 3:33 AM SCRAP BUNCH MAKER 06/16/2023 8:08 AM SCRAP BUNCH MAKER Thien Oh MD LAB - PATHOLOGY/CYTOLOGY ORD ERABLES Final Result DERMATOPATHOLOGY LABORATORY [facility] - Department of Dermatology [address], [address] [phone] documented in this encounter Visit Diagnoses Not on filedocumented in this encounter Care Teams Data Transcriber Relationship Specialty Start Date End Date Omer Bar DO PCP - General 12/01/19 documented as of this encounter
--- OUTSIDE RECORDS SUMMARY | 2024-10-28 11:50 | XMS_ITS | Encounter Summary ---
Author Organization [facility] Address [address] [place] [address] Phone Care Team Providers Care Financial Analysis Manager Name Role Phone Luis Manuel Kaur MD Primary Care Provider Genna Pearson RN Unavailable Unavailabl e Reason for Referral * Procedure (Routine) - Closed Specialty Diagnoses / Procedures Referred By Contac t Referred To Contact Diagnoses Bronchiectasis without complication (HCC) SATURNINO (mycobacterium avium-intracellulare) (HCC) Pulmonary nodule Procedures Pulmonary Function Test -[facility] Adult PFT Lab- [facility]; Spirometry, Oxygen Assessment Titration Norberto Muro MD [address] [facility] [address] [place] [address] Phone: tel: fax: Referral ID Status Reason Start Date Expiration Date Visits Re quested Visits Authorized [id number] Closed 08/05/2022 09/04/2023 1 1 PROOF DOOR MAKER Reason for Visit * Procedure (Routine) - Closed Specialty Diagnoses / Procedures Referred By Contac t Referred To Contact Diagnoses Bronchiectasis without complication (HCC) SATURNINO (mycobacterium avium-intracellulare) (HCC) Pulmonary nodule Procedures Pulmonary Function Test -[facility] Adult PFT Lab- [facility]; Spirometry, Oxygen Assessment Titration Norberto Muro MD [address] [facility] [facility] [address] [place] [address] Phone: tel: fax: Referral ID Status Reason Start Date Expiration Date Visits Re quested Visits Authorized [id number] Closed 08/05/2022 09/04/2023 1 1 Encounter Details Date Type Department Care Team (Latest Contact Info) Description 04/28/2023 1:45 PM FIREPROOF DOOR MAKER Hospital Encounter [facility] PFT Lab [address] [facility] [address] [place] [address] Bronchiectasis without complication (HCC); SATURNINO [...] on file Legal Sex Female 6:51 PM FIREPROOF DOOR MAKER Gender Identity Not on file Sexual Orientation Not on file documented as of this encounter Plan of Treatment Not on file documented as of this encounter Procedures Procedure Name Priority Date/Time Associated Diagnosis Comments PULMONARY FUNCTION TEST (PFT) Routine 04/28/2023 2:43 PM FIREPROOF DOOR MAKER Bronchiectasis without complication (HCC) SATURNINO (mycobacterium avium-intracellulare) (HCC) Pulmonary nodule documented in this encounter Results * Pulmonary Function Test - (04/28/2023 2:43 PM FIREPROOF DOOR MAKER) FVC PRE 1.59 L [facility] FVC %PRE PRED 67 % [facility] FEV1 PRE 1.03 L [facility] FEV1 %PRE PRED 57 % [facility] FEV1/FVC PRE 64.6 % [facility] Anatomical Region Laterality Modality PFT 04/28/2023 2:02 PM FIREPROOF DOOR MAKER Narrative 04/29/2023 4:19 PM FIREPROOF DOOR MAKER Table formatting from the original result was not included. [facility] Division of Pulmonary & Critical Care Medicine [address]; [place] [address]; [place] [address]; [phone] Pulmonary Function Laboratory Pulmonary Stress Test Simple/Oxygen [...] Work [distance (m) x body wt (kg)]: 37741 kg.m (normal >60,000kg.m) Oxygen required to maintain [...] with the written final report. 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
--- OUTSIDE RECORDS SUMMARY | 2024-10-28 11:50 | XMS_ITS | Encounter Summary ---
Author Organization [facility] Address [address] [place] [address] Phone Care Team Providers Care Deep Fat Fry Cook Name Role Phone Luis Manuel Kaur MD Primary Care Provider Genna Pearson RN Unavailable Unavailabl e Reason for Referral * (Routine) - Closed Specialty Diagnoses / Procedures Referred By Contac t Referred To Contact Diagnoses Chronic obstructive pulmonary disease, unspecified COPD type (HCC) Bronchiectasis without acute exacerbation (HCC) Procedures Pulmonary Function Test -[facility]; Spirometry, Oxygen Assessment Titration Norberto Muro MD [address] [address] Phone: tel: fax: Referral ID Status Reason Start Date Expiration Date Visits Re quested Visits Authorized [id number] Closed 01/21/2022 02/20/2023 1 1 ET POLISHER Reason for Visit * (Routine) - Closed Specialty Diagnoses / Procedures Referred By Contac t Referred To Contact Diagnoses Chronic obstructive pulmonary disease, unspecified COPD type (HCC) Bronchiectasis without acute exacerbation (HCC) Procedures Pulmonary Function Test -[facility]; Spirometry, Oxygen Assessment Titration Norberto Muro MD [address] [address] Phone: tel: fax: Referral ID Status Reason Start Date Expiration Date Visits Re quested Visits Authorized [id number] Closed 01/21/2022 02/20/2023 1 1 Encounter Details Date Type Department Care Team (Latest Contact Info) Description 08/05/2022 11:06 AM FAUCET POLISHER Hospital Encounter [facility] PFT Lab [address] [facility] [address] [place] [address] Chronic obstructive pulmonary disease, unspecified [...] on file Legal Sex Female 6:51 PM FAUCET POLISHER Gender Identity Not on file Sexual Orientation Not on file documented as of this encounter Functional Status * Audit-C Score Answer Date of Assessment Author 6 [...] FUNCTION TEST (PFT) Routine 08/05/2022 11:40 AM FAUCET POLISHER Chronic obstructive pulmonary disease, unspecified COPD type (HCC) Bronchiectasis without acute exacerbation (HCC) documented in this encounter Results * Pulmonary Function Test - (08/05/2022 11:40 AM FAUCET POLISHER) FVC PRE 1.24 L [facility] FVC %PRE PRED 52 % [facility] FEV1 PRE 1.01 L [facility] FEV1 %PRE PRED 56 % [facility] FEV1/FVC PRE 81.5 % [facility] Anatomical Region Laterality Modality PFT 08/05/2022 11:1 4 AM FAUCET POLISHER Narrative 08/07/2022 2:35 PM FAUCET POLISHER Table formatting from the original result was not included. [facility] Division of Pulmonary & Critical Care Medicine [address] [place] [address]; [address] [facility]; [place] [address]; [phone] Pulmonary Function Laboratory Pulmonary Stress Test Simple/Oxygen [...] Work [distance (m) x body wt (kg)]: 54400 kg.m (normal >60,000kg.m) Oxygen required to maintain [...] with the written final report. PFT performed at:->[facility] Procedure:->Spirometry Procedure:->Oxygen Assessment Titration Norberto Muro MD PFT ORDERABLES Final Result documented in this encounter Visit Diagnoses Diagnosis Chronic obstructive pulmonary disease, unspecified COPD type (HCC) Bronchiectasis without acute exacerbation (HCC) Bronchiectasis without acute exacerbation documented in this encounter Care Teams Deep Fat Fry Cook Relationship Specialty Start Date End Date Luis Manuel Kaur MD [address] [facility] [address] [place] [address] PCP - General Family Medicine 03/24/18 Genna Pearson RN Registered Nurse Pulmonary Disease 08/05/22 documented as of this encounter
--- OUTSIDE RECORDS SUMMARY | 2024-10-28 11:50 | XMS_ITS | Encounter Summary ---
Author Organization [facility] Health Address [address] [place] [address] Care Team Providers Care Delivery Agent Name Role Phone Omer Bar DO Primary Care Provider Encounter Details Date Type Department Care Team (Late st Contact Info) Description 12/01/2019 Lab Requisition [facility] [address] [place] [id number] Thien Oh MD [address] [place] [address] Social History Tobacco Use Types Packs/Day Years Used Date Smoking Tobacco: Never Assessed Comments Unknown Sex and Gender Information Value Date Recorded Sex Assigned at Not on file Legal Sex Female 11:05 AM CDT Gender Identity Not on file Sexual Orientation Not on file documented as of this encounter Plan of Treatment Not on file documented as of this encounter Visit Diagnoses Not on filedocumented in this encounter Care Teams Delivery Agent Relationship Specialty Start Date End Date Omer Bar DO PCP - General 12/01/19 documented as of this encounter
--- OUTSIDE RECORDS SUMMARY | 2024-10-28 11:50 | XMS_ITS | Encounter Summary ---
Author Organization [facility] Address [address] [facility] [place] [address] Care Team Providers Care Asset Management Coordinator Name Role Phone Sharrirony Omer James DO Primary Care Provider Encounter Details Date Type Department Care Team (Late st Contact Info) Description 12/01/2019 Lab Requisition [facility] Lab [address] [place] [id number] Thien Oh MD [address] [place] [address] Social History Tobacco Use Types [...] Priority Date/Time Associated Diagnosis Comments DERMATOPATHOLOGY Routine 11/30/2019 12:0 0 AM CDT documented in this encounter Results * DERMATOPATHOLOGY (11/30/2019 12:00 AM CDT) Case Report Dermatopathology Report Case: [id number] Authorizing Provider: Thien Oh MD Collected: 11/30/2019 12:00 AM Ordering Location: [facility] Received: 12/01/2019 11:00 AM Pathologist: Kavita Mullen MD Specimen: Skin, left paraspinal upper back 0 8:43 PM CDT DERMATOPATHOLOGY LABORATORY Final Diagnosis Specimen A. SKIN, left paraspinal upper back: LICHEN PLANUS-LIKE KERATOSIS (BENIGN LICHENOID KERATOSIS) (L82.1) (see microscopic description) 0 8:43 PM CDT DERMATOPATHOLOGY LABORATORY Clinical History R/O eczema vs HAK vs sBCC, Gely 0 8:43 PM CDT DERMATOPATHOLOGY LABORATORY Gross Description Specimen A: Received is one formalin filled container labeled with the patient's name and designated left paraspinal upper back. The specimen consists of a shave biopsy measuring 8x7x1 mm. Jar 0. 0 8:43 PM CDT DERMATOPATHOLOGY LABORATORY Microscopic Description Specimen A. SKIN, left paraspinal upper back: The epidermis is mildly acanthotic. There is a lichenoid infiltrate with vacuolar changes of basilar keratinocytes and scattered necrotic keratinocytes. Grocott's methenamine silver (GMS) stain fails to highlight fungal elements in the available sections. Additional deeper sections were obtained and reviewed. 0 8:43 PM CDT DERMATOPATHOLOGY LABORATORY Disclaimer An external and internal positive and negative controls are appropriate for the histochemical, immunohistochemical and immunofluorescence stain(s) in this case (if any), except where stated explicitly. The performance characteristics of the stain(s) cited in this report were developed and its performance characteristic determined by the Dermatopathology Laboratory at [facility], directed by Dr. Shun Macias. These tests need not be, and therefore are not, approved by the [place] Food and Drug Administration. The tests are used for clinical purposes. Billing Codes Specimen Charges Stain Charges 94588 1 93209 1 0 8:43 PM CDT DERMATOPATHOLOGY LABORATORY Embedded Images 0 8:43 PM CDT DERMATOPATHOLOGY LABORATORY Pathology/Cytolog y TISSUE SPECIMEN FROM SKIN / Unknown 11/30/2019 12/01/2019 11:00 AM CDT Thien Oh MD LAB - PATHOLOGY/CYTOLOGY ORD ERABLES Final Result DERMATOPATHOLOGY LABORATORY [facility] - Department of Dermatology Delivery Room [place] [address], [facility] [phone] documented in this encounter Visit Diagnoses Not on filedocumented in this encounter Care Teams Asset Management Coordinator Relationship Specialty Start Date End Date Omer Bar DO PCP - General 12/01/19 documented as of this encounter
[2024-10-28 12:00] VITALS: RESP 16; O2SAT 100
--- NOTE | 2024-10-28 12:21 | ED_ITS ---
HPI - General Adult General Chief complaint: Unspecified Stated complaint: couldn't sleep last night and wants to know why Time Seen by Provider: 10/28/24 12:09 Source: patient Mode of arrival: ambulatory Limitations: no limitations History of Present Illness HPI narrative: This is a 83 year old female that presents to the ER for nausea. Reports she was started on a new medication recently. She has been having some memory issues. She took her 1st dose of donepezil last night. She was not able to sleep. She has been having a lot of nausea. She is unsure if she maybe took a 2nd dose of the medication. Denies fever, vomiting, diarrhea, dysuria. Related Data Home Medications ?Medication ?Instructions ?Recorded ?Confirmed ?Last Taken ?Type multivitamin 1 tablet PO DAILY 02/13/21 10/26/24 Unknown History omega-3 fatty acids 1,000 mg 1,000 mg PO DAILY 02/13/21 10/26/24 Unknown History capsule (Fish Oil Concentrate) psyllium 1 packet PO DAILY 09/09/23 10/26/24 Unknown History Allergies Allergy/AdvReac Type Severity Reaction Status Date / Time codeine Allergy Unknown Unknown Verified 10/26/24 10:49 Review of Systems 2 Review of Systems: CONSTITUTIONAL: Denies fever GASTROINTESTINAL: Reports abdominal pain, nausea. Denies vomiting, or diarrhea. GENITOURINARY: Denies dysuria All systems reviewed & are unremarkable except as noted in HPI and below PMFSH Past Medical History Medical History Chronic obstructive pulmonary disease Mycobacterium avium-intracellulare infection Followed by [facility]. Bronchiectasis Chronic constipation Osteoporosis Surgical History Surgical History H/O basal cell carcinoma excision surgery 08-25-23 History of cataract extraction History of nasal septoplasty History of foot surgery History of bone spur removal in bunionectomy. Family History Family History Sibling Patient's sister is in good health Eczema Seafood allergy Father Family history of coronary artery disease Mother Eczema Social History Social History Social History: Surrogate medical decision maker: Cynthia Valdes, sister. Code status: Smoking status: Never smoker Second hand tobacco smoke exposure: No Alcohol intake: current Substance use: never Substance use type: does not use Do You Feel Safe in your Home?: Yes Lack of Transportation: No Lack of Food: Never True Current Housing: I Have Housing Concerned About Future Housing: No Difficulty Paying Gas/Electric Bills: No Difficulty Paying for Meds: No Currently Unemployed: No Education: Bachelor's Degree Difficulty w/ Childcare or Family Care: No Living arrangements: alone Additional living arrangements comments: The patient lives in her own home in [place]. She lives at home with her small dog, Chana. She never and has no children. 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 Spiritual care concerns: No Exam 2 Narrative: GENERAL: Elderly, well-nourished, and in no acute distress. HEAD: Normocephalic, atraumatic. EYES: EOMI. CHEST: Clear to auscultation. No respiratory distress. No wheezes rales or rhonchi HEART: Regular rate and rhythm. No murmur heard. Normal peripheral pulses. ABDOMEN: Soft, nontender, nondistended, normal active bowel sounds. EXTREMITIES: Normal range of motion. No edema. SKIN: Warm, dry, no rash. NEURO: No focal deficits. Alert and oriented x3. PSYCH: Normal mood and affect Course Course Emergency Course: Patient updated on her workup and agrees with plan of care Vital Signs Vital signs: Vital Signs Temperature 97.9 F 10/28/24 11:48 Pulse Rate 73 10/28/24 11:48 Respiratory Rate 20 10/28/24 11:48 Blood Pressure 152/76 H 10/28/24 11:48 Pulse Oximetry 95 10/28/24 11:48 Oxygen Delivery Room Air 10/28/24 11:48 Temperature 97.9 F 10/28/24 11:48 Pulse Rate 73 10/28/24 11:48 Respiratory Rate 16 10/28/24 12:00 Blood Pressure 152/76 H 10/28/24 11:48 Pulse Oximetry 100 10/28/24 12:00 Oxygen Delivery Room Air 10/28/24 11:48 Medical Decision Making MDM Narrative Medical decision making narrative: Patient presents to the emergency department for nausea, insomnia. Recently started on donepezil for memory issues. She is afebrile and nontoxic appearing. Her vitals are stable. Cbc without leukocytosis. Metabolic panel and lipase without concerning findings. Urine without evidence of infection. CT abdomen and pelvis is read as possible colitis. Patient does not have any diarrhea, I do not believe clinically this fits her picture. It does appear that nausea and insomnia are side effects of Donepezil. She was encouraged to follow up with her primary provider for further management of this. Instructed to take Pepcid as needed. She was given warnings to return to the ER Differential Diagnosis Differential Diagnosis: Occurred, pancreatitis, esophagitis, gastritis, biliary colic, medication adverse effects Vital Signs Vital Signs: Vital Signs Temperature 97.9 F 10/28/24 11:48 Pulse Rate 73 10/28/24 11:48 Respiratory Rate 20 10/28/24 11:48 Blood Pressure 152/76 H 10/28/24 11:48 Pulse Oximetry 95 10/28/24 11:48 Oxygen Delivery Room Air 10/28/24 11:48 Temperature 97.9 F 10/28/24 11:48 Pulse Rate 73 10/28/24 11:48 Respiratory Rate 16 10/28/24 12:00 Blood Pressure 152/76 H 10/28/24 11:48 Pulse Oximetry 100 10/28/24 12:00 Oxygen Delivery Room Air 10/28/24 11:48 Lab Data 10/28/24 13:13 10/28/24 14:01 Labs: Lab Results 10/28/24 10/28/24 Range/Units 13:13 14:01 WBC 5.7 (4.5-10.0) K/mm3 RBC 4.82 (4.2-5.4) M/mm3 Hgb 14.8 D (12.0-15.0) g/dL Hct 46.2 (37.0-47.0) % MCV 95.9 (80-100) fl MCH 30.7 (26-34) pg MCHC 32.0 (32-36) g/dl RDW 13.2 (11.5-14.5) % Plt Count 135 L (150-375) k/mm3 MPV 11.5 H (7.4-10.4) fl Immature Gran % (Auto) 0.4 (0-0.5) % Neut % (Auto) 77.0 H (45.5-73.1) % Lymph % (Auto) 15.8 L (18.3-44.2) % [place] % (Auto) 6.2 (2.6-8.5) % Eos % (Auto) 0.2 (0-4.4) % Baso % (Auto) 0.4 (0.2-1.2) % Lymph # (Auto) 0.90 (0.9-3.2) K/mm3 [place] # (Auto) 0.4 (0.1-0.6) K/mm3 Eos # (Auto) 0.0 (0-0.3) K/mm3 Baso # (Auto) 0.0 (0.0-0.1) K/mm3 Abs Immat Gran (auto) 0.02 (0.00-0.031) K/mm3 Absolute Neuts (auto) 4.4 (1.3-6.7) K/mm3 Absolute Nucleated RBC 0.000 (0.0-0.012) K/mm3 Nucleated RBC % 0.0 (0.0-0.2) % % Immature Plt Fraction 7.1 (0.9-11.2) % Sodium 136 L (137-145) mmol/L Potassium 4.2 (3.4-5.0) mmol/L Chloride 103 (98-107) mmol/L Carbon Dioxide 23 (22-30) mmol/L Anion Gap 10 (4-12) mmol/L BUN 26 H D (7-17) mg/dL Creatinine 0.65 L (0.7-1.0) mg/dL Estim Creat Clear Calc 43 ml/min Estimated GFR > 60 (59 - ) Glucose 115 H (65-110) mg/dL Calcium 8.9 (8.4-10.2) mg/dL Total Bilirubin 0.6 (0.2-1.3) mg/dL AST 42 H (14-36) U/L ALT 27 (6-35) U/L Alkaline Phosphatase 124 (38-126) U/L Total Protein 7.0 (6.3-8.2) g/dL Albumin 4.2 (3.5-5.1) g/dL Lipase 105 (23-300) U/L Urine Color Yellow (Yellow) Urine Appearance Clear (Clear) Urine pH 5.5 (5.0-9.0) Ur Specific [place] 1.023 (1.001-1.035) Urine Protein Negative (Negative) mg/dL Urine Glucose (UA) Negative (Negative) mg/dL Urine Ketones Trace H (Negative) mg/dL Ur Blood (Man) Negative (Negative) Urine Nitrate Negative (Negative) Urine Bilirubin Negative (Negative) Urine Urobilinogen 0.2 (<2.0) mg/dL Leukocyte Esterase Rfl Negative (Negative) CONTRERAS/UL Imaging Data Radiologist's impression: ITS Impressions Abdomen/Pelvis CT 10/28/24 15:44 IMPRESSION: 1. No evidence of appendicitis, diverticulitis or intestinal obstruction. 2. Multiple hepatic cysts. 3. Sliding hiatus hernia. 4. Slightly thickened wall of the transverse colon which may indicate colitis. Clinical correlation advised. Critical Care Time Critical Care Time Critical Care Time: No Discharge Plan Discharge Clinical Impression: Medication side effects, Nausea Patient Disposition: Home Condition: Improved Instructions: Donepezil (By mouth), Acute Nausea and Vomiting (ED) Additional Instructions: Return to the ER if you experience fever, abdominal pain with nausea and vomiting, you are unable to keep down liquids or solids, or any other symptoms that are concerning to you Nausea and insomnia appear to be side effects of Donepezil. Speak with your primary doctor about further management of this. I recommend putting your pills in a pill container that has the days of the week on it so you do not take your medications more than needed Small, frequent meals. Motley diet. Remain well hydrated. You may take Pepcid over the counter as needed. Follow up with your primary care doctor Patient Language: [place] Prescriptions: No Action albuterol sulfate 90 mcg/actuation HFA aerosol inhaler 1 puff inhalation Q6H PRN (Reason: shortness of breath or wheezing) Qty: 8.5 0RF donepezil [Aricept] 5 mg tablet 5 mg PO QHS Qty: 30 1RF multivitamin Tablet 1 tablet PO DAILY omega-3 fatty acids [Fish Oil Concentrate] 1,000 mg capsule 1,000 mg PO DAILY psyllium Packet 1 packet PO DAILY Follow-up/Referrals: Luis Manuel Kaur MD [Primary Care Provider] -
[2024-10-28] MEDS: ONDANSETRON INJ 4 MG/2 ML VIAL IV PUSH (13:14)
[2024-10-28] MEDS: FAMOTIDINE 20 MG/2 ML VIAL IV PUSH (13:14)
[2024-10-28 13:33] LABS: Basophils Percent Auto 0.4 % (0.2-1.2); Eosinophils Percent Auto 0.2 % (0-4.4); Hematocrit 46.2 % (37.0-47.0); Hemoglobin 14.8 g/dL (12.0-15.0); Immature Granulocyte Absolute 0.02 K/mm3 (0.00-0.031); Immature Granulocyte Percent A 0.4 % (0-0.5); Immature Platelet Fraction Pct 7.1 % (0.9-11.2); Lymphocytes Percent Auto 15.8 % (18.3-44.2); Mean Corpuscular Hemoglobin 30.7 pg (26-34); Mean Corpuscular Volume 95.9 fl (80-100); Mean Platelet Volume 11.5 fl (7.4-10.4); Monocytes Absolute Auto 0.4 K/mm3 (0.1-0.6); Monocytes Percent Auto 6.2 % (2.6-8.5); Neutrophils Absolute Auto 4.4 K/mm3 (1.3-6.7); Platelet Count Result 135 k/mm3 (150-375); Red Blood Count 4.82 M/mm3 (4.2-5.4); Red Cell Distribution Width 13.2 % (11.5-14.5); White Blood Count 5.7 K/mm3 (4.5-10.0)
[2024-10-28 13:34] LABS: Add Urine Microscopic? NO; Appearance Urine Clear (Clear); Bilirubin Urine Negative (Negative); Blood Urine Negative (Negative); Color Urine Yellow (Yellow); Glucose Urine UA Negative (Negative); Ketones Urine Trace mg/dL (Negative); Leukocyte Esterase Ur Negative LEU/UL (Negative); Nitrate Urine Negative (Negative); Protein Urine Negative (Negative); Specific Grav Ur 1.023 (1.001-1.035); Urobilinogen Urine 0.2 mg/dL (<2.0); pH Urine 5.5 (5.0-9.0)
--- OUTSIDE RECORDS SUMMARY | 2024-10-28 13:34 | XMS_ITS | Referral Summary ---
Author Organization [facility] [address] [facility] [address] Address [address] [place] [address] Care Team Providers Care Reservation Clerk Name Role Phone Luis Manuel Kaur MD [...] 01/08/2024 Assessment & Plan (07/06/2024 2:18 PM SR. PRICING ANALYST): Doing better since her bowels have become [...] 01/08/2024 Assessment & Plan (07/06/2024 2:18 PM SR. PRICING ANALYST): Mild. She has a medication at home [...] 05/13/2022 Assessment & Plan (07/06/2024 2:17 PM SR. PRICING ANALYST): Chronic. She responds well to Metamucil and [...] SARS-CoV-2 Monovalent Vaccination (12+ Yrs) PURPLE 10/05/2021,03/20/2021,09/08/2020,08/18 Zooplus Sars-Cov-2 Bivalent V accination (12+ YRS) 03/12/2022 [...] on file Legal Sex Female 6:51 PM SR. PRICING ANALYST Gender Identity Not on file Sexual Orientation Not on file Last Filed Vital Signs Vital Sign Reading Time Taken Comments Blood Pressure 121/62 07/06/2024 1:32 PM SR. PRICING ANALYST Pulse 67 07/06/2024 1:32 PM SR. PRICING ANALYST Temperature 36.4 C (97.6 F) 06/06/2024 10:46 AM SR. PRICING ANALYST Respiratory Rate 18 06/06/2024 10:46 AM SR. PRICING ANALYST Oxygen Saturation 94% 07/06/2024 1:32 PM SR. PRICING ANALYST Inhaled Oxygen Concentration - - Weight 50.3 kg (111 lb) 07/06/2024 1:32 PM SR. PRICING ANALYST Height 160 cm (5' 3 ) 07/06/2024 1:32 PM SR. PRICING ANALYST Body Mass Index 19.66 07/06/2024 1:32 PM SR. PRICING ANALYST Plan of Treatment Not on file Insurance MEDICARE T SENIOR SUPPLEMENT AETNA MEDICARE GOLD AETNA MEDICARE GOLD Advance Directives For more information, please contact: [phone] Documents on File Type Date Recorded Patient Child Development Specialist Expl anation ADVANCE DIRECTIVE 09/21/2017 12:00 AM P[employer] FINANCIAL/MEDICAL Care Teams Reservation Clerk Relationship Specialty Start Date End Date Luis Manuel Kaur MD [address] [facility] [address] [place] [address] PCP - General Family Medicine 03/24/18 Genna Pearson, RN Registered Nurse Pulmonary Disease 08/05/22
--- OUTSIDE RECORDS SUMMARY | 2024-10-28 13:35 | XMS_ITS | Encounter Summary ---
Author Organization [facility] Address [address] [facility] [place] [address] Care Team Providers Care Research Chemical Engineer Name Role Phone Omer Bar DO Primary Care Provider Encounter Details Date Type Department Care Team (Late st Contact Info) Description 12/01/2019 Lab Requisition [facility] [address] [place] [phone] Thien Oh MD [address] [place] [address] Social History Tobacco Use Types [...] on filedocumented in this encounter Care Teams Research Chemical Engineer Relationship Specialty Start Date End Date Omer Bar DO PCP - General 12/01/19 documented as of this encounter
--- OUTSIDE RECORDS SUMMARY | 2024-10-28 13:35 | XMS_ITS | Continuity of Care Document ---
Author Organization [facility] Address [address] [place] [address] [address] [place] [address] Phone Care Team Providers Care Tool And Die Assembler Name Role Phone Heather Blanco Unavailable Unavailable Procedures Procedure Date Eye Exam & Treatment Eye Exam & Treatment Eye Exam & Treatment Refraction Advance Directives Directive Yes / No Effective Date File Name No Information Encounters Encounter Description Practice Location Reason(s) For Visit Diagnoses Date Provider Providers Copied on Encounter [facility], [address] [place] [address] [address], [place], [place], [id number], tel:[phone] [facility] No Information 1-200 9 Bella Wong [address] , [address], [place], [place], [facility], [place]. tel:[phone] [facility], [address] [place] [address] [address], [place], [place], [id number], tel:[phone] [facility] No Information 8-200 8 Bella Wong [address], [place], [address], [place]. tel:[phone] [facility], [address] [place] [address] [address], [place], [place], [id number], [place] tel:[phone] [facility] No Information 3-200 7 Bella Wong [address] , [address], [place], [place], [facility], [place]. tel:[phone] Family History Family Member Type Diagnosis Age At Onset No Information Payers Payer name Insurance type Covered green party ID Authoriza tion(s) [place] [id number] Social History Type Description Quantity Date Captured [...]
--- OUTSIDE RECORDS SUMMARY | 2024-10-28 13:35 | XMS_ITS | Encounter Summary ---
Author Organization [facility] Address [address] [place] [address] Phone Care Team Providers Care Master Cosmetologist Name Role Phone Luis Manuel Kaur MD Primary Care Provider Genna Pearson RN Unavailable Unavailabl e Reason for Referral * Procedure (Routine) - Closed Specialty Diagnoses / Procedures Referred By Contac t Referred To Contact Diagnoses Bronchiectasis without complication (HCC) SATURNINO (mycobacterium avium-intracellulare) (HCC) Pulmonary nodule Procedures Pulmonary Function Test -[facility] Adult [facility]- [facility]; Spirometry, Oxygen Assessment Titration Norberto Muro MD [address] [facility] [address] [place] [address] Phone: tel: fax: Referral ID Status Reason Start Date Expiration Date Visits Re quested Visits Authorized [id number] Closed 08/05/2022 09/04/2023 1 1 ING MACHINE MECHANIC Reason for Visit * Procedure (Routine) - Closed Specialty Diagnoses / Procedures Referred By Contac t Referred To Contact Diagnoses Bronchiectasis without complication (HCC) SATURNINO (mycobacterium avium-intracellulare) (HCC) Pulmonary nodule Procedures Pulmonary Function Test -[facility]- [facility]; Spirometry, Oxygen Assessment Titration Norberto Muro MD [address] [facility] [address] [place] [address] Phone: tel: fax: Referral ID Status Reason Start Date Expiration Date Visits Re quested Visits Authorized [id number] Closed 08/05/2022 09/04/2023 1 1 Encounter Details Date Type Department Care Team (Latest Contact Info) Description 04/28/2023 1:45 PM COPYING MACHINE MECHANIC Hospital Encounter [facility] PFT Lab [address] [facility] Medical Office Building [address] [place] [address] Bronchiectasis without complication (HCC); SATURNINO [...] on file Legal Sex Female 6:51 PM COPYING MACHINE MECHANIC Gender Identity Not on file Sexual Orientation Not on file documented as of this encounter Plan of Treatment Not on file documented as of this encounter Procedures Procedure Name Priority Date/Time Associated Diagnosis Comments PULMONARY FUNCTION TEST (PFT) Routine 04/28/2023 2:43 PM COPYING MACHINE MECHANIC Bronchiectasis without complication (HCC) SATURNINO (mycobacterium avium-intracellulare) (HCC) Pulmonary nodule documented in this encounter Results * Pulmonary Function Test - (04/28/2023 2:43 PM COPYING MACHINE MECHANIC) FVC PRE 1.59 L [facility] FVC %PRE PRED 67 % [facility] FEV1 PRE 1.03 L [facility] FEV1 %PRE PRED 57 % [facility] FEV1/FVC PRE 64.6 % [facility] Anatomical Region Laterality Modality PFT 04/28/2023 2:02 PM COPYING MACHINE MECHANIC Narrative 04/29/2023 4:19 PM COPYING MACHINE MECHANIC Table formatting from the original result was not included. [facility] Division of Pulmonary & Critical Care Medicine [address]; [address]; [place] [address]; [phone] Pulmonary Function Laboratory Pulmonary Stress Test Simple/Oxygen [...] Work [distance (m) x body wt (kg)]: 73200 kg.m (normal >60,000kg.m) Oxygen required to maintain [...] with the written final report. PFT performed at:->[facility] U Adult PFT Lab- [facility] Procedure:->Spirometry Procedure:->Oxygen Assessment Titration Norberto Muro MD PFT ORDERABLES Final Result documented in this encounter Visit Diagnoses Diagnosis Bronchiectasis without complication (HCC) SATURNINO (mycobacterium avium-intracellulare) (HCC) Pulmonary diseases due to other mycobacteria Pulmonary nodule Other diseases of lung, not elsewhere classified documented in this encounter Care Teams Master Cosmetologist Relationship Specialty Start Date End Date Luis Manuel Kaur MD [address] [facility] [address] [place] [id number] PCP - General Family Medicine 03/24/18 Genna Pearson, RN Registered Nurse Pulmonary Disease 08/05/22 documented as of this encounter
--- OUTSIDE RECORDS SUMMARY | 2024-10-28 13:35 | XMS_ITS | Encounter Summary ---
Author Organization [facility] Address [address] [place] [address] Phone Care Team Providers Care Nuclear Power Reactor Operator Name Role Phone Luis Manuel Kaur MD Primary Care Provider Genna Pearson RN Unavailable Unavailabl e Reason for Referral * (Routine) - Closed Specialty Diagnoses / Procedures Referred By Contac t Referred To Contact Diagnoses Chronic obstructive pulmonary disease, unspecified COPD type (HCC) Bronchiectasis without acute exacerbation (HCC) Procedures Pulmonary Function Test -[facility] Adult PFT Lab- [facility]; Spirometry, Oxygen Assessment Titration Norberto Muro MD [address] [address] Phone: tel: fax: Referral ID Status Reason Start Date Expiration Date Visits Re quested Visits Authorized [id number] Closed 01/21/2022 02/20/2023 1 1 SALES REPRESENTATIVE Reason for Visit * (Routine) - Closed Specialty Diagnoses / Procedures Referred By Contac t Referred To Contact Diagnoses Chronic obstructive pulmonary disease, unspecified COPD type (HCC) Bronchiectasis without acute exacerbation (HCC) Procedures Pulmonary Function Test -[facility] Adult PFT Lab- [facility]; Spirometry, Oxygen Assessment Titration Norberto Muro MD [address] [address] Phone: tel: fax: Referral ID Status Reason Start Date Expiration Date Visits Re quested Visits Authorized [id number] Closed 01/21/2022 02/20/2023 1 1 Encounter Details Date Type Department Care Team (Latest Contact Info) Description 08/05/2022 11:06 AM IT SALES REPRESENTATIVE Hospital Encounter [facility] PFT Lab [address] [facility] [address] [place] [address] Chronic obstructive pulmonary disease, unspecified [...] on file Legal Sex Female 6:51 PM IT SALES REPRESENTATIVE Gender Identity Not on file Sexual Orientation [...] FUNCTION TEST (PFT) Routine 08/05/2022 11:40 AM IT SALES REPRESENTATIVE Chronic obstructive pulmonary disease, unspecified COPD type (HCC) Bronchiectasis without acute exacerbation (HCC) documented in this encounter Results * Pulmonary Function Test - (08/05/2022 11:40 AM IT SALES REPRESENTATIVE) FVC PRE 1.24 L [facility] FVC %PRE PRED 52 % [facility] FEV1 PRE 1.01 L [facility] FEV1 %PRE PRED 56 % [facility] FEV1/FVC PRE 81.5 % [facility] Anatomical Region Laterality Modality PFT 08/05/2022 11:1 4 AM IT SALES REPRESENTATIVE Narrative 08/07/2022 2:35 PM IT SALES REPRESENTATIVE Table formatting from the original result was not included. [facility] Division of Pulmonary & Critical Care Medicine [address] [place] [address]; [place] [address] [facility]; [place] [address]; [phone] Pulmonary Function Laboratory Pulmonary Stress Test Simple/Oxygen [...] Work [distance (m) x body wt (kg)]: 41818 kg.m (normal >60,000kg.m) Oxygen required to maintain [...] PFT performed at:->[facility]- [facility] Procedure:->Spirometry Procedure:->Oxygen Assessment Titration Norberto Muro MD PFT ORDERABLES Final Result documented in this encounter Visit Diagnoses Diagnosis Chronic obstructive pulmonary disease, unspecified COPD type (HCC) Bronchiectasis without acute exacerbation (HCC) Bronchiectasis without acute exacerbation documented in this encounter Care Teams Nuclear Power Reactor Operator Relationship Specialty Start Date End Date Luis Manuel Kaur MD [address] [facility] [address] [place] [address] PCP - General Family Medicine 03/24/18 Genna Pearson RN Registered Nurse Pulmonary Disease 08/05/22 documented as of this encounter
--- OUTSIDE RECORDS SUMMARY | 2024-10-28 13:35 | XMS_ITS | Clinical Summary ---
Author Organization [facility] Address [address] [place] [address] Care Team Providers Care Manager Ems Name Role Phone Omer Bar DO Primary Care Provider Source Comments [facility],non-owned Affiliates and Associated Physician Practices is amultiple site organization consisting of ambulatory clinics and hospital sitesin [place], [place], [place]. This disclosure is being madepursuant to the Care Everywhere program and may not contain all information available regarding this patient. Last updated 18.[facility] [employer] Social History Tobacco Use Types Packs/Day Years [...] Insurance MEDICARE AET MEDICARE AETNA Care Teams Manager Ems Relationship Specialty Start Date End Date Omer Bar DO PCP - General 12/01/19
--- OUTSIDE RECORDS SUMMARY | 2024-10-28 13:35 | XMS_ITS | Clinical Summary ---
Author Organization [facility] [address] [facility] [address] Address [address] [place] [address] Care Team Providers Care Partridge Farmer Name Role Phone Luis Manuel Kaur MD [...] 01/08/2024 Assessment & Plan (07/06/2024 2:18 PM APPLICATION SECURITY DEVELOPER): Doing better since her bowels have become [...] 01/08/2024 Assessment & Plan (07/06/2024 2:18 PM APPLICATION SECURITY DEVELOPER): Mild. She has a medication at home [...] 05/13/2022 Assessment & Plan (07/06/2024 2:17 PM APPLICATION SECURITY DEVELOPER): Chronic. She responds well to Metamucil and [...] SARS-CoV-2 Monovalent Vaccination (12+ Yrs) PURPLE 10/05/2021,03/20/2021,09/08/2020,08/18 [employer] Sars-Cov-2 Bivalent V accination (12+ YRS) 03/12/2022 [...] on file Legal Sex Female 6:51 PM APPLICATION SECURITY DEVELOPER Gender Identity Not on file Sexual Orientation Not on file Obstetrics History Last Filed Vital Signs Vital Sign Reading Time Taken Comments Blood Pressure 121/62 07/06/2024 1:32 PM APPLICATION SECURITY DEVELOPER Pulse 67 07/06/2024 1:32 PM APPLICATION SECURITY DEVELOPER Temperature 36.4 C (97.6 F) 06/06/2024 10:46 AM APPLICATION SECURITY DEVELOPER Respiratory Rate 18 06/06/2024 10:46 AM APPLICATION SECURITY DEVELOPER Oxygen Saturation 94% 07/06/2024 1:32 PM APPLICATION SECURITY DEVELOPER Inhaled Oxygen Concentration - - Weight 50.3 kg (111 lb) 07/06/2024 1:32 PM APPLICATION SECURITY DEVELOPER Height 160 cm (5' 3 ) 07/06/2024 1:32 PM APPLICATION SECURITY DEVELOPER Body Mass Index 19.66 07/06/2024 1:32 PM APPLICATION SECURITY DEVELOPER Plan of Treatment Health Maintenance Due Date [...] Advance Directives For more information, please contact: [phone] Documents on File Type Date Recorded Patient Steam Drier Tender Expl anation ADVANCE DIRECTIVE 09/21/2017 12:00 AM POWER OF SHAKER OPERATOR FINANCIAL/MEDICAL Care Teams Partridge Farmer Relationship Specialty Start Date End Date Luis Manuel Kaur MD [address] [place] [address] PCP - General Family Medicine 03/24/18 Genna Pearson, RN Registered Nurse Pulmonary Disease 08/05/22
--- OUTSIDE RECORDS SUMMARY | 2024-10-28 13:35 | XMS_ITS | Encounter Summary ---
Author Organization [facility] Address [address] [facility] [place] [address] Care Team Providers Care Production Lead Name Role Phone Tilatrang Omer James DO Primary Care Provider Encounter Details Date Type Department Care Team (Late st Contact Info) Description 06/12/2023 Lab Requisition [facility] - DermPath Lab [address] [place] [id number] Thien Oh MD [address] [place] [address] Social History Tobacco Use Types [...] Diagnosis Comments DERMATOPATHOLOGY Routine 06/10/2023 3:33 AM LOCKS INSPECTOR documented in this encounter Results * DERMATOPATHOLOGY (06/10/2023 3:33 AM LOCKS INSPECTOR) Case Report Dermatopathology Report Case: [id number] Authorizing Provider: Thien Oh MD Collected: 06/10/2023 03:33 AM Ordering Location: [facility] DermPath Lab Received: 06/16/2023 08:08 AM Pathologist: Anahi Mullen MD Specimen: Skin, midline lower forehead 9:59 AM LOCKS INSPECTOR DERMATOPATHOLOGY LABORATORY Final Diagnosis Specimen A. SKIN, midline lower forehead: SQUAMOUS CELL CARCINOMA, WELL DIFFERENTIATED, WITH CYSTIC FEATURES (C44.329) (see microscopic description and comment) 9:59 AM [facility] DERMATOPATHOLOGY LABORATORY Clinical History R/O BCC< SCC 3 9:59 AM [facility] DERMATOPATHOLOGY LABORATORY Gross Description Specimen A: Received is one formalin filled container labeled with the patient's name and designated midline lower forehead. The specimen consists of a shave biopsy measuring 8x7x2 mm. Jar 0. 3 9:59 AM [facility] DERMATOPATHOLOGY LABORATORY Microscopic Description Specimen [...] who concurs with the diagnosis. 9:59 AM [facility] DERMATOPATHOLOGY LABORATORY Disclaimer An external and internal positive and negative controls are appropriate for the histochemical, immunohistochemical and immunofluorescence stain(s) in this case (if any), except where stated explicitly. The performance characteristics of the stain(s) cited in this report were developed and its performance characteristic determined by the Dermatopathology Laboratory at [facility], directed by Dr. Shun Macias. These tests need not be, and therefore are not, approved by the [place] Food and Drug Administration. The tests are used for clinical purposes. Billing Codes Specimen Charges Stain Charges 46848 1 27190 1 3 9:59 AM [facility] DERMATOPATHOLOGY LABORATORY Embedded Images 3 9:59 AM [facility] DERMATOPATHOLOGY LABORATORY Pathology/Cytolo gy TISSUE SPECIMEN FROM SKIN / Unknown 06/10/2023 3:33 AM LOCKS INSPECTOR 06/16/2023 8:08 AM LOCKS INSPECTOR Thien Oh MD LAB - PATHOLOGY/CYTOLOGY ORD ERABLES Final Result DERMATOPATHOLOGY LABORATORY [facility] - Department of Dermatology [address], [address] [phone] documented in this encounter Visit Diagnoses Not on filedocumented in this encounter Care Teams Production Lead Relationship Specialty Start Date End Date Omer Bar DO PCP - General 12/01/19 documented as of this encounter
--- OUTSIDE RECORDS SUMMARY | 2024-10-28 13:35 | XMS_ITS | Encounter Summary ---
Author Organization [facility] Address [address] [facility] [place] [address] Care Team Providers Care Cotton Wringer Name Role Phone Sharrirony Omer James DO Primary Care Provider Encounter Details Date Type Department Care Team (Late st Contact Info) Description 12/01/2019 Lab Requisition [facility] DermPath Lab [address] [place] [id number] Thien Oh MD [address] [place] [address] Social History Tobacco Use Types [...] AM CDT) Case Report Dermatopathology Report Case: [id number] Authorizing Provider: Thien Oh MD Collected: 11/30/2019 12:00 AM Ordering Location: [facility] Derm[facility] Lab Received: 12/01/2019 11:00 AM Pathologist: [...] characteristic determined by the Dermatopathology Laboratory at [facility], directed by Dr. Shun Macias. These tests need not be, and therefore are not, approved by the [place] Food and Drug Administration. The tests are used for clinical purposes. Billing Codes Specimen Charges Stain Charges 78672 1 88922 1 0 8:43 PM CDT DERMATOPATHOLOGY LABORATORY Embedded Images 0 8:43 PM CDT DERMATOPATHOLOGY LABORATORY Pathology/Cytolog y TISSUE SPECIMEN FROM SKIN / Unknown 11/30/2019 12/01/2019 11:00 AM CDT Thien Oh MD LAB - PATHOLOGY/CYTOLOGY ORD ERABLES Final Result DERMATOPATHOLOGY LABORATORY [facility] - Department of Dermatology [employer] [place] [address], [facility] [phone] documented in this encounter Visit Diagnoses Not on filedocumented in this encounter Care Teams Cotton Wringer Relationship Specialty Start Date End Date Omer Bar DO PCP - General 12/01/19 documented as of this encounter
[2024-10-28 15:12] LABS: Alanine Aminotransferase 27 U/L (6-35); Albumin Level 4.2 g/dL (3.5-5.1); Alkaline Phosphatase 124 U/L (38-126); Anion Gap 10 mmol/L (4-12); Aspartate Amino Transferase 42 U/L (14-36); Bilirubin,Total 0.6 mg/dL (0.2-1.3); Blood Urea Nitrogen 26 mg/dL (7-17); Calcium 8.9 mg/dL (8.4-10.2); Carbon Dioxide 23 mmol/L (22-30); Chloride 103 mmol/L (98-107); Estimated CRCL calculation 43 ml/min; Estimated Glomerular Filt Rate > 60; Glucose 115 mg/dL (65-110); Lipase 105 U/L (23-300); Potassium 4.2 mmol/L (3.4-5.0); Sodium 136 mmol/L (137-145)
== END 2024-10-28 16:47 | disposition home or self-care (01) ==
PROVIDERS: Emergency Provider Physician Assistant; PCP Family Medicine
DX: R11.0 Nausea (principal); T44.1X5A Adverse effect of other parasympathomimetics [cholinergics], initial encounter; J44.9 Chronic obstructive pulmonary disease, unspecified; M81.0 Age-related osteoporosis without current pathological fracture
CPT/HCPCS: 36415; 74177; 80053; 81003; 83690; 85025; 85055; 96374; 96375; 99284; J2405; Q9967

== ENCOUNTER 2025-02-17 15:30 | Outpatient (CLI) | payer MEDICARE, SELFPAY ==
--- OUTSIDE RECORDS SUMMARY | 2009-05-22 08:00 | XMS_ITS | Continuity of Care Document ---
Author Organization [facility] Address [address] [place] [address] [address] [place] [address] Phone Care Team Providers Care Box Toe Flanger Stitchdowns Name Role Phone Heather Blanco Unavailable Unavailable Procedures Procedure Date Eye Exam & Treatment Eye Exam & Treatment Eye Exam & Treatment Refraction Advance Directives Directive Yes / No Effective Date File Name No Information Encounters Encounter Description Practice Location Reason(s) For Visit Diagnoses Date Provider Providers Copied on Encounter [facility], [address] [place] [address] [address], [place], [place], [id number], tel:[phone] [facility] No Information 1-200 9 Bella Wong [address] [facility] , [address], [place], [place], [facility] [place], [place]. tel:[phone] [facility], [address] [place] [address] [address], [place], [place], [id number], tel:[phone] [facility] No Information 8-200 8 Bella Wong [address] , [address], [place], [address], [place]. tel:[phone] [facility], [address] [place] [address] [address], [place], [place], [id number], [place] tel:[phone] [facility] No Information 3-200 7 Bella Wong [address] , [address], [place], [place], [facility] [place]. tel:[phone] Family History Family Member Type Diagnosis Age At Onset No Information Payers Payer name Insurance type Covered republican ID Authoriza tion(s) [place] [id number] Social History Type Description Quantity Date Captured Comments Sex Female Smoking Status No Information Chief Complaint And Reason For Visit No Information Reason For Referral Reason For Referral No Information History Of Present Illness Encounter Date Complaint History Of Prese nt Illness No Information Functional Status Date Functional Assessmen t No Information Instructions Date Instruction Additional Infor mation No Information Assessments Type Assessment Date No Information Patient Care Teams Name Effective Dates (start - stop) Status Members No Information
--- OUTSIDE RECORDS SUMMARY | 2022-08-05 12:06 | XMS_ITS | Encounter Summary ---
Author Organization [facility] Address [address] [place] [address] Phone Care Team Providers Care Stone Mill Operator Name Role Phone Luis Manuel Kaur MD Primary Care Provider Genna Pearson RN Unavailable Unavailabl e Reason for Referral * (Routine) - Closed Specialty Diagnoses / Procedures Referred By Edwardac t Referred To Contact Diagnoses Chronic obstructive pulmonary disease, unspecified COPD type (HCC) Bronchiectasis without acute exacerbation (HCC) Procedures Pulmonary Function Test -[facility] Adult PFT [facility]- [facility]; Spirometry, Oxygen Assessment Titration Norberto Muro MD [address] [address] Phone: tel: fax: Referral ID Status Reason Start Date Expiration Date Visits Re quested Visits Authorized [id number] Closed 01/21/2022 02/20/2023 1 1 OPAEDIC SURGEON Reason for Visit * (Routine) - Closed Specialty Diagnoses / Procedures Referred By Contac t Referred To Contact Diagnoses Chronic obstructive pulmonary disease, unspecified COPD type (HCC) Bronchiectasis without acute exacerbation (HCC) Procedures Pulmonary Function Test -[facility]- [facility]; Spirometry, Oxygen Assessment Titration Norberto Muro MD [address] [address] Phone: tel: fax: Referral ID Status Reason Start Date Expiration Date Visits Re quested Visits Authorized [id number] Closed 01/21/2022 02/20/2023 1 1 Encounter Details Date Type Department Care Team (Latest Contact Info) Description 08/05/2022 11:06 AM ORTHOPAEDIC SURGEON Hospital Encounter [facility] Medicine PFT Lab [address] [facility] [address] [place] [address] Chronic obstructive pulmonary disease, unspecified [...] on file Legal Sex Female 6:51 PM ORTHOPAEDIC SURGEON Gender Identity Not on file Sexual Orientation [...] FUNCTION TEST (PFT) Routine 08/05/2022 11:40 AM ORTHOPAEDIC SURGEON Chronic obstructive pulmonary disease, unspecified COPD type (HCC) Bronchiectasis without acute exacerbation (HCC) documented in this encounter Results * Pulmonary Function Test - (08/05/2022 11:40 AM ORTHOPAEDIC SURGEON) FVC PRE 1.24 L [facility] FVC %PRE PRED 52 % [facility] FEV1 PRE 1.01 L [facility] FEV1 %PRE PRED 56 % [facility] FEV1/FVC PRE 81.5 % [facility] Anatomical Region Laterality Modality PFT 08/05/2022 11:1 4 AM ORTHOPAEDIC SURGEON Narrative 08/07/2022 2:35 PM ORTHOPAEDIC SURGEON Table formatting from the original result was not included. [facility] [address] [place] [address]; [place] [address] [facility]; [place] [address]; [phone] Pulmonary Function Laboratory Pulmonary Stress Test Simple/Oxygen [...] Work [distance (m) x body wt (kg)]: 75636 kg.m (normal >60,000kg.m) Oxygen required to maintain [...] with the written final report. PFT performed at:->[facility] Adult PFT Lab- [facility] Procedure:->Spirometry Procedure:->Oxygen Assessment Titration Norberto Muro MD PFT ORDERABLES Final Result documented in this encounter Visit Diagnoses Diagnosis Chronic obstructive pulmonary disease, unspecified COPD type (HCC) Bronchiectasis without acute exacerbation (HCC) Bronchiectasis without acute exacerbation documented in this encounter Care Teams Stone Mill Operator Relationship Specialty Start Date End Date Luis Manuel Kaur MD [address] [address] PCP - General Family Medicine 03/24/18 Genna Pearson, RN Registered Nurse Pulmonary Disease 08/05/22 documented as of this encounter
--- OUTSIDE RECORDS SUMMARY | 2023-04-28 14:45 | XMS_ITS | Encounter Summary ---
Author Organization [facility] Address [address] [place] [address] Phone Care Team Providers Care Group Supervisor Yard Name Role Phone Luis Manuel Kaur MD Primary Care Provider Genna Pearson RN Unavailable Unavailabl e Reason for Referral * Procedure (Routine) - Closed Specialty Diagnoses / Procedures Referred By Contac t Referred To Contact Diagnoses Bronchiectasis without complication (HCC) SATURNINO (mycobacterium avium-intracellulare) (HCC) Pulmonary nodule Procedures Pulmonary Function Test -[facility] [facility] Adult PFT Lab- [facility]; Spirometry, Oxygen Assessment Titration Norberto Muro MD [address] [facility] [address] [place] [address] Phone: tel: fax: Referral ID Status Reason Start Date Expiration Date Visits Re quested Visits Authorized [id number] Closed 08/05/2022 09/04/2023 1 1 RETE FINISHER Reason for Visit * Procedure (Routine) - Closed Specialty Diagnoses / Procedures Referred By Contac t Referred To Contact Diagnoses Bronchiectasis without complication (HCC) SATURNINO (mycobacterium avium-intracellulare) (HCC) Pulmonary nodule Procedures Pulmonary Function Test -[facility] Adult PFT Lab- [facility]; Spirometry, Oxygen Assessment Titration Norberto Muro MD [address] [facility] [address] [place] [address] Phone: tel: fax: Referral ID Status Reason Start Date Expiration Date Visits Re quested Visits Authorized [id number] Closed 08/05/2022 09/04/2023 1 1 Encounter Details Date Type Department Care Team (Latest Contact Info) Description 04/28/2023 1:45 PM CONCRETE FINISHER Hospital Encounter [facility] Medicine PFT Lab [address] [facility] Medical Office Building [address] [place] [address] Bronchiectasis without complication (HCC); SATURNINO [...] on file Legal Sex Female 6:51 PM CONCRETE FINISHER Gender Identity Not on file Sexual Orientation Not on file documented as of this encounter Plan of Treatment Not on file documented as of this encounter Procedures Procedure Name Priority Date/Time Associated Diagnosis Comments PULMONARY FUNCTION TEST (PFT) Routine 04/28/2023 2:43 PM CONCRETE FINISHER Bronchiectasis without complication (HCC) SATURNINO (mycobacterium avium-intracellulare) (HCC) Pulmonary nodule documented in this encounter Results * Pulmonary Function Test - (04/28/2023 2:43 PM CONCRETE FINISHER) FVC PRE 1.59 L [facility] FVC %PRE PRED 67 % [facility] FEV1 PRE 1.03 L [facility] FEV1 %PRE PRED 57 % [facility] FEV1/FVC PRE 64.6 % [facility] Anatomical Region Laterality Modality PFT 04/28/2023 2:02 PM CONCRETE FINISHER Narrative 04/29/2023 4:19 PM CONCRETE FINISHER Table formatting from the original result was not included. [facility] Division of Pulmonary & Critical Care Medicine [address] [place] [address]; [place] [address]; [place] [phone]; [phone] Pulmonary Function Laboratory Pulmonary Stress Test Simple/Oxygen [...] Work [distance (m) x body wt (kg)]: 78571 kg.m (normal >60,000kg.m) Oxygen required to maintain [...] with the written final report. PFT performed at:->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
--- NOTE | ~2025-02-17 | XR_ITS ---
EXAM/ PROCEDURE: XR thoracic spine 3V - 02/17/2025 15:55 CDT HISTORY: 84 years old Female with S22.020A - Wedge compression fracture of second thoracic ... S22.020A - Wedge compression fracture of second thoracic ... COMPARISON: 09/28/2023 TECHNIQUE: Three view(s) FINDINGS/ IMPRESSION: Stable mild compression deformity of T12 vertebral body. Diffuse osteopenia with kyphosis is again seen.Multilevel degenerative changes are seen. COPD. Atherosclerotic calcifications. Reviewed, dictated and finalized at location N.
--- OUTSIDE RECORDS SUMMARY | 2025-02-17 15:35 | XMS_ITS | Encounter Summary ---
Author Organization [facility] Health Address [address] [facility] [place] [address] Care Team Providers Care Intermediate Card Tender Name Role Phone Omer Bar DO Primary Care Provider Encounter Details Date Type Department Care Team (Late st Contact Info) Description 12/01/2019 Lab Requisition [facility] [address] [place] [id number] Thien Oh MD [address] [place] [address] Social History Tobacco Use Types [...] on filedocumented in this encounter Care Teams Intermediate Card Tender Relationship Specialty Start Date End Date Omer Bar DO PCP - General 12/01/19 documented as of this encounter
--- OUTSIDE RECORDS SUMMARY | 2025-02-17 15:35 | XMS_ITS | Clinical Summary ---
Author Organization [facility] [address] [facility] [address] Address [address] [place] [address] Care Team Providers Care Last Pattern Grader Name Role Phone Luis Manuel Kaur MD [...] a day 60 capsule 2 2 Active Additional Information Patient not taking.Reported on 01/02/2025 albuterol HFA (PROVENTIL HFA,VENTOLIN HFA,PROAIR HFA) 90 mcg/actuation inhaler INHALE 1 PUFF BY MOUTH EVERY 6 HOURS NEEDED FOR SHORTNESS OF BREATH OR WHEEZING 4 Active albuterol 2.5 mg /3 mL (0.083 %) nebulizer solution USE 1 VIAL IN NEBULIZER 4 TIMES DAILY 120 mL 11 5 Active donepeziL (ARICEPT) 5 mg tablet Take 1 tablet (5 mg total) by mouth nightly 5 Active Active Problems Problem Noted Date Diagnosed Date Lower abdominal pain 01/08/2024 Assessment & Plan (07/06/2024 2:18 PM FIELD PROPERTY LOSS SPECIALIST): Doing better since her bowels have become [...] 01/08/2024 Assessment & Plan (07/06/2024 2:18 PM FIELD PROPERTY LOSS SPECIALIST): Mild. She has a medication at home [...] 05/13/2022 Assessment & Plan (07/06/2024 2:17 PM FIELD PROPERTY LOSS SPECIALIST): Chronic. She responds well to Metamucil and Colace. Advised to continue both medications and augmented water consumption. Blood in stool 05/13/2022 Fibrotic lung diseases Chronic obstructive pulmonary disease Encounters Date Type Department Care Team Description 01/02/2025 12:00 PM CDT Office Visit [facility] Medicine Pulmonary [address] [facility] for [facility] 8th [place] [address] [place] [address] Everardo Muñoz MD Chronic obstructive pulmonary disease, unspecified COPD type (HCC) (Primary Dx); Bronchiectasis without complication (HCC); SATURNINO (mycobacterium avium-intracellulare ) (HCC) 01/02/2025 10:30 AM CDT - 01/02/2025 11:59 PM CDT Hospital Encounter [facility] Medicine Pulmonary [address] [facility] [address] [place] [address] Chronic obstructive pulmonary disease, unspecified COPD type (HCC) Discharge Disposition: Discharge to home or self care 01/02/[address] [facility] Medicine Pulmonary [address] [facility] 8th [place] [address] [place] [phone] Everardo Muñoz MD Chronic obstructive pulmonary disease, unspecified COPD type (HCC) (Primary Dx) 01/02/[address] [facility] Medicine Pulmonary [address] [facility] 8th [place] [address] [place] [phone] Terri Pennington RN from Last 3 Months Immunizations Immunization Administration Dates Next Due Hep A, Adult 10/14/2005,04/15/2005 Influenza, Quad, Adjuvantate d, Intramuscular 02/28/2020 Influenza, Trivalent, High D ose, Split, Preservative Free, Intramuscular 03/13/2019,03/14/2018,03/15/2017,03/16,03/11/2015 Influenza, Trivalent, IM (MDV) 03/18/2013 Influenza, Trivalent, Preser vative Free, Intramuscular 04/03/2014 Pfizer SARS-CoV-2 Monovalent Vaccination (12+ Yrs) PURPLE 10/05/2021,03/20/2021,09/08/2020,08/18 Pfizer Sars-Cov-2 Bivalent V accination (12+ YRS) 03/12/2022 [...] on file Legal Sex Female 6:51 PM FIELD PROPERTY LOSS SPECIALIST Gender Identity Not on file Sexual Orientation Not on file Obstetrics History Last Filed Vital Signs Vital Sign Reading Time Taken Comments Blood Pressure 125/72 01/02/2025 12:06 PM CDT Pulse 62 01/02/2025 12:06 PM CDT Temperature 36.1 C (97 F) 01/02/2025 12:06 PM CDT Respiratory Rate 18 01/02/2025 12:06 PM CDT Oxygen Saturation 94% 01/02/2025 12:06 PM CDT Inhaled Oxygen Concentration - - Weight 49 kg (108 lb) 01/02/2025 12:06 PM CDT Height 160 cm (5' 3) 01/02/2025 12:06 PM CDT Body Mass Index 19.13 01/02/2025 12:06 PM CDT Plan of Treatment Health Maintenance Due Date Last Done Comments Osteoporosis Screening-Bone Density Scan 1940 Hepatitis B Screening 1956 Zoster Vaccine (1 of 2) 1988 Well Visit 65+ 12/06/2003 Fall Risk Assessment 05/28/2023 05/28/2022 Depression Screening 09/17/2023 09/16/2022 Covid-19 Vaccine (2023-2 5 season) 2024 03/12/2022, 10/05/2021, 03/20/2021, Additional history exists Influenza Vaccine (#1) 2025 , 03/13/2019, 03/14/2018, Additional history exists DTaP/Tdap/Td Vaccine (2 - Td or Tdap) 02/24/2027 02/24/2017, 08/20/2004 Pneumococcal vaccine 65+ Completed 06/06/2024, 07/2017 Procedures Procedure Name Priority Date/Time Associated Diagnosis Comments PULMONARY FUNCTION TEST (PFT) Routine 01/02/2025 11:08 AM CDT Chronic obstructive pulmonary disease, unspecified COPD type (HCC) from Last 3 Months Results * Pulmonary Function Test - (01/02/2025 11:08 AM CDT) FVC PRE 1.26 L [facility] FVC %PRE PRED 53 % [facility] FEV1 PRE 0.99 L [facility] FEV1 %PRE PRED 55 % [facility] FEV1/FVC PRE 78.0 % [facility] Anatomical Region Laterality Modality PFT 01/02/2025 10:4 6 AM CDT Narrative 01/03/2025 10:22 AM CDT Table formatting from the original result was not included. [facility] Division of Pulmonary & Critical Care Medicine [address] [place] [address]; [address]; [place] [address]; [phone] Pulmonary Function Laboratory Pulmonary Stress Test Simple/Oxygen Assessment Patient: Shelton Cheema Date: 01/02/2025 : 1940 Ht: 63 in Wt: 108 lbs Time (min) Distance (ft)/ Rainey O2 L/M SpO2 HR Mable* BP FEV1 % Pred Rest: RA 94 71 3 110/63 0.99 55 % Walk/Bike: 1 RA 92 85 3 2 RA 92 87 3 3 RA 92 87 3 4 RA 92 87 3 5 RA 93 88 3 6 min 0 sec RA 92 86 3 Recovery: 1 RA 95 72 3 118/64 0.97 54 % 3 RA 96 66 3 *Mable rate of perceived exertion (1-10 dyspnea scale) Dewey, CHEST 2003; 123:1408 Walk Test Summary: Six Minute Walk Distance: 1050 ft Six-minute Walk Work [distance (m) x body wt (kg)]: 77355 kg.m (normal >60,000kg.m) Oxygen required to maintain SpO2 greater than 90% during six minutes of walkin L/M Comments: O2A. No stops. Interpretation: Breathing room air, SpO2 is adequate at rest and during exercise sufficient to increase pulse, SpO2 falls but remains normoxemic . On this basis, SpO2 is adequate at rest breathing room air and while walking breathing room air. This level of exercise is associated with no significant change of FEV1. By signing this report, the attending pulmonary physician certifies that he/she has personally reviewed and interpreted the graphic and numerical data associated with this pulmonary function study and has reviewed and /or edited a preliminary draft report and agrees with the written final report. PFT performed at:->[facility] Adult PFT Lab- [facility]-8D Procedure:->Oxygen Assessment Titration Procedure:->Spirometry Pulmonary Function Test Interpretation SPIROMETRY: There is a decrease in expiratory airflow at middle lung volumes. The FEV1 to FVC ratio is normal. The FEV1 and FVC are reduced in a pattern suggestive of a restrictive abnormality. The inspiratory loop is appropriate for the expiratory flow abnormality. Impression: There is a moderate restrictive ventilatory defect. However, measurement of lung volumes is suggested to confirm this if clinically indicated. Compared with most recent study, there has been no significant interval change. The attending pulmonary physician certifies a physician presence in the [facility] during the administration of aerosolized bronchodilator. The attending pulmonary physician certifies that he/she has reviewed and interpreted the graphic and numerical data of this pulmonary function study and agrees with the written final report. The lower limit of normal for PaO2 and %HbO2 is age dependent. However, the [facility] Pulmonary Function Laboratory defines hypoxemia as a PaO2 <56 mm Hg or a %HbO2 <89%. Starting on June of 2024 the [facility] Pulmonary Function Laboratory utilizes race neutral GLI Global normative equations. Everardo Muñoz MD PFT ORDERABLES Final Result from Last 3 Months Insurance MEDICARE [facility] SENIOR SUPPLEMENT [facility] Address: [address] [address] [place] [address] AET[employer] MEDICARE GOLD AETNA MEDICARE GOLD Advance Directives For more information, please contact: [phone] Documents on File Type Date Recorded Patient Household Worker Expl anation ADVANCE DIRECTIVE 09/21/2017 12:00 AM POWER OF LOCAL CITY DRIVER FINANCIAL/MEDICAL Care Teams Last Pattern Grader Relationship Specialty Start Date End Date Luis Manuel Kaur MD [address] [place] [address] PCP - General Family Medicine 03/24/18 Genna Pearson, RN Registered Nurse Pulmonary Disease 08/05/22
--- OUTSIDE RECORDS SUMMARY | 2025-02-17 15:35 | XMS_ITS | Encounter Summary ---
Author Organization [facility] Health Address [address] [facility] [place] [address] Care Team Providers Care Panel Monitor Name Role Phone TilaOmer costello James DO Primary Care Provider [phone] Encounter Details Date Type Department Care Team (Late st Contact Info) Description 06/12/2023 Lab Requisition [facility] - DermPath Lab [address] [place] [phone] Thien Oh MD [address] [place] [address] Social History Tobacco Use Types [...] Diagnosis Comments DERMATOPATHOLOGY Routine 06/10/2023 3:33 AM CAUSTIC CRESYLATE SHIFT SUPERINTENDENT documented in this encounter Results * DERMATOPATHOLOGY (06/10/2023 3:33 AM CAUSTIC CRESYLATE SHIFT SUPERINTENDENT) Case Report Dermatopathology Report Case: [id number] Authorizing Provider: Thien Oh MD Collected: 06/10/2023 03:33 AM Ordering Location: [facility] DermPath Lab Received: 06/16/2023 08:08 AM Pathologist: Anahi Mullen MD Specimen: Skin, midline lower forehead 9:59 AM CAUSTIC CRESYLATE SHIFT SUPERINTENDENT DERMATOPATHOLOGY LABORATORY Final Diagnosis Specimen A. SKIN, midline lower forehead: SQUAMOUS CELL CARCINOMA, WELL DIFFERENTIATED, WITH CYSTIC FEATURES (C44.329) (see microscopic description and comment) 9:59 AM [facility] DERMATOPATHOLOGY LABORATORY at [address] [facility] Clinical History R/O BCC< SCC 3 9:59 AM [facility] DERMATOPATHOLOGY LABORATORY Gross Description Specimen A: Received is one formalin filled container labeled with the patient's name and designated midline lower forehead. The specimen consists of a shave biopsy measuring 8x7x2 mm. Jar 0. 9:59 AM [facility] DERMATOPATHOLOGY LABORATORY Microscopic Description Specimen A. [...] who concurs with the diagnosis. 9:59 AM [facility] DERMATOPATHOLOGY LABORATORY Disclaimer An external and internal positive and negative controls are appropriate for the histochemical, immunohistochemical and immunofluorescence stain(s) in this case (if any), except where stated explicitly. The performance characteristics of the stain(s) cited in this report were developed and its performance characteristic determined by the Dermatopathology Laboratory at [facility], directed by Dr. Shun Macias. These tests need not be, and therefore are not, approved by the [place] Food and Drug Administration. The tests are used for clinical purposes. Billing Codes Specimen Charges Stain Charges 44924 1 66929 1 3 9:59 AM [facility] DERMATOPATHOLOGY LABORATORY Embedded Images 3 9:59 AM [facility] DERMATOPATHOLOGY LABORATORY Pathology/Cytolo gy TISSUE SPECIMEN FROM SKIN / Unknown 06/10/2023 3:33 AM CAUSTIC CRESYLATE SHIFT SUPERINTENDENT 06/16/2023 8:08 AM CAUSTIC CRESYLATE SHIFT SUPERINTENDENT Thien Oh MD LAB - PATHOLOGY/CYTOLOGY ORD ERABLES Final Result DERMATOPATHOLOGY LABORATORY [facility] - Department of Dermatology [address], [address] Floor [address] [phone] documented in this encounter Visit Diagnoses Not on filedocumented in this encounter Care Teams Panel Monitor Relationship Specialty Start Date End Date Omer Bar DO PCP - General 12/01/19 documented as of this encounter
--- OUTSIDE RECORDS SUMMARY | 2025-02-17 15:35 | XMS_ITS | Clinical Summary ---
Author Organization [facility] Address [address] [place] [address] Care Team Providers Care Zoo Caretaker Name Role Phone Omer Bar DO Primary Care Provider Source Comments [facility],non-owned Affiliates and Associated Physician Practices is amultiple site organization consisting of ambulatory clinics and hospital sitesin [place], [place], [place] and [place]. This disclosure is being madepursuant to the Care Everywhere program and may not contain all information available regarding this patient. Last updated 18.[facility] PuzzleSocial Social History Tobacco Use Types Packs/Day Years [...] - 1-dose 75+ series) 2013 COVID-19 VACCINE (1 - 2023-2 5 season) 2024 DEPRESSION SCREENING 06/22/2024 INFLUENZA VACCINE (#1) 2025 HEPATITIS B VACCINE Aged Out No [...] to complete this [place] [address] MEDICARE AETNA Care Teams Zoo Caretaker Relationship Specialty Start Date End Date Omer Bar DO PCP - General 12/01/19
--- OUTSIDE RECORDS SUMMARY | 2025-02-17 15:35 | XMS_ITS | Encounter Summary ---
Author Organization [facility] Address [address] [place] [address] Care Team Providers Care Motion Picture Camera Lens Technician Name Role Phone Sharrirony Omer James DO Primary Care Provider Encounter Details Date Type Department Care Team (Late st Contact Info) Description 12/01/2019 Lab Requisition [facility] DermPath Lab [address] [place] [phone] Thien Oh MD [address] [place] [address] Social History Tobacco Use Types [...] AM CDT) Case Report Dermatopathology Report Case: [id number] Authorizing Provider: Thien Oh MD Collected: 11/30/2019 12:00 AM Ordering Location: [facility] DermPath Lab Received: 12/01/2019 11:00 AM Pathologist: Kavita Mullen MD Specimen: Skin, left paraspinal upper back 0 8:43 PM CDT DERMATOPATHOLOGY LABORATORY Final Diagnosis Specimen A. SKIN, left paraspinal upper back: LICHEN PLANUS-LIKE KERATOSIS (BENIGN LICHENOID KERATOSIS) (L82.1) (see microscopic description) 0 8:43 PM CDT DERMATOPATHOLOGY LABORATORY at 2043 CDT Clinical History R/O eczema vs HAK vs [...] characteristic determined by the Dermatopathology Laboratory at [facility], directed by Dr. Shun Macias. These tests need not be, and therefore are not, approved by the [place] Food and Drug Administration. The tests are used for clinical purposes. Billing Codes Specimen Charges Stain Charges 50835 1 98597 1 0 8:43 PM CDT DERMATOPATHOLOGY LABORATORY Embedded Images 0 8:43 PM CDT DERMATOPATHOLOGY LABORATORY Pathology/Cytolog y TISSUE SPECIMEN FROM SKIN / Unknown 11/30/2019 12/01/2019 11:00 AM CDT Thien Oh MD LAB - PATHOLOGY/CYTOLOGY ORD ERABLES Final Result DERMATOPATHOLOGY LABORATORY [facility] - Department of Dermatology [place] [address], [facility] [phone] documented in this encounter Visit Diagnoses Not on filedocumented in this encounter Care Teams Motion Picture Camera Lens Technician Relationship Specialty Start Date End Date Omer Bar DO PCP - General 12/01/19 documented as of this encounter
== END 2025-02-17 15:31 | disposition home or self-care (01) ==
PROVIDERS: PCP Family Medicine; Visit Provider Physician Assistant
DX: S22.020A Wedge compression fracture of second thoracic vertebra, initial encounter for closed fracture (principal); W19.XXXA Unspecified fall, initial encounter; G89.29 Other chronic pain; M85.88 Other specified disorders of bone density and structure, other site; J44.9 Chronic obstructive pulmonary disease, unspecified; M40.294 Other kyphosis, thoracic region
CPT/HCPCS: 72072

== ENCOUNTER 2025-04-11 12:14 | Outpatient (CLI) | payer MEDICARE, SELFPAY ==
--- OUTSIDE RECORDS SUMMARY | 2022-08-05 12:06 | XMS_ITS | Encounter Summary ---
Author Organization [facility] Address [address] [place] [address] Phone Care Team Providers Care Director Of Photography Name Role Phone Luis Manuel Kaur MD Primary Care Provider Genna Pearson RN Unavailable Unavailabl e Reason for Referral * (Routine) - Closed Specialty Diagnoses / Procedures Referred By Edwardac t Referred To Contact Diagnoses Chronic obstructive pulmonary disease, unspecified COPD type (HCC) Bronchiectasis without acute exacerbation (HCC) Procedures Pulmonary Function Test -[facility] PFT [facility]- [facility]; Spirometry, Oxygen Assessment Titration Norberto Muro MD [address] [address] Phone: tel: fax: Referral ID Status Reason Start Date Expiration Date Visits Re quested Visits Authorized [id number] Closed 01/21/2022 02/20/2023 1 1 ER SERVICE TECHNICIAN Reason for Visit * (Routine) - Closed Specialty Diagnoses / Procedures Referred By Contac t Referred To Contact Diagnoses Chronic obstructive pulmonary disease, unspecified COPD type (HCC) Bronchiectasis without acute exacerbation (HCC) Procedures Pulmonary Function Test -[facility]FT [facility]- [facility]; Spirometry, Oxygen Assessment Titration Norberto Muro MD [address] [address] Phone: tel: fax: Referral ID Status Reason Start Date Expiration Date Visits Re quested Visits Authorized [id number] Closed 01/21/2022 02/20/2023 1 1 Encounter Details Date Type Department Care Team (Latest Contact Info) Description 08/05/2022 11:06 AM BOILER SERVICE TECHNICIAN Hospital Encounter [facility] Medicine PFT Lab [address] [facility] Office [address] [place] [address] Chronic obstructive pulmonary disease, unspecified COPD type (HCC); Bronchiectasis without acute exacerbation (HCC) Social History Tobacco Use Types Packs/Day Years Used Date Smoking Tobacco: Never Smokeless Tobacco: Never AUDIT-C Answer Date Recorded Q1: How often do you have a drink containing alc ohol? 2-3 times a week 09/16/2022 Q2: How many drinks containi ng alcohol do you have on a typical day when you are drinking? 1 or 2 09/16/2022 Q3: How often do you have si x or more drinks on one occasion? Weekly 09/16/2022 PHQ-2 Answer Date Recorded PHQ-2 Total Score (If total score is 3 or more points, staff should administer the PHQ-9) 0 09/16/2022 Comments Unknown Sex and Gender Information Value Date Recorded Sex Assigned at Not on file Legal Sex Female 6:51 PM BOILER SERVICE TECHNICIAN Gender Identity Not on file Sexual Orientation Not on file documented as of this encounter Functional Status * AUDIT-C Score Answer Date of Assessment Author 6 09/16/2022 1:52 PM Pro Mead MA * Question Answer Date of Assessment Author Q1: How often do you have a drink containing alcohol? 2-3 times a week 09/16/2022 1:52 PM Blanca Mead MA Q2: How many drinks containing alcohol do you have on a typical day when you are drinking? 1 or 2 09/16/2022 1:52 PM Blanca Mead MA Q3: How often do you have six or more drinks on one occasion? Weekly 09/16/2022 1:52 PM Blanca Mead MA documented as of this encounter Plan of Treatment Not on file documented as of this encounter Procedures Procedure Name Priority Date/Time Associated Diagnosis Comments PULMONARY FUNCTION TEST (PFT) Routine 08/05/2022 11:40 AM BOILER SERVICE TECHNICIAN Chronic obstructive pulmonary disease, unspecified COPD type (HCC) Bronchiectasis without acute exacerbation (HCC) documented in this encounter Results * Pulmonary Function Test - (08/05/2022 11:40 AM BOILER SERVICE TECHNICIAN) FVC PRE 1.24 L [facility] FVC %PRE PRED 52 % [facility] FEV1 PRE 1.01 L [facility] FEV1 %PRE PRED 56 % [facility] FEV1/FVC PRE 81.5 % [facility] Anatomical Region Laterality Modality PFT 08/05/2022 11:1 4 AM BOILER SERVICE TECHNICIAN Narrative 08/07/2022 2:35 PM BOILER SERVICE TECHNICIAN Table formatting from the original result was not included. [facility] [address] [place] [address]; [place] [address] [facility]; [place] [address]; [phone] Pulmonary Function Laboratory Pulmonary Stress Test Simple/Oxygen Assessment Patient: Shelton Cheema Date: No visit date found. : 1940 Ht: 63 in Wt: 107 lbs Time (min) Distance (ft)/ Rainey O2 L/M SpO2 HR Mable* BP FEV1 % Pred Rest: RA 94 97 0 125/62 1.01 56 % Walk/Bike: 1 RA 93 93 0 2 RA 93 102 0 3 RA 92 102 1 4 RA 93 98 1 5 RA 94 99 1 6 min 0 sec RA 93 101 1 Recovery: 1 RA 94 73 0 121/68 1.00 55 % 3 RA 96 76 0 *Mable rate of perceived exertion (1-10 dyspnea scale) Dewey, CHEST 2003; 123:1408 Walk Test Summary: Six Minute Walk Distance: 1320 ft Six-minute Walk Work [distance (m) x body wt (kg)]: 34029 kg.m (normal >60,000kg.m) Oxygen required to maintain SpO2 greater than 90% during six minutes of walkin L/M Comments: O2A Interpretation: Breathing room air, SpO2 is adequate at rest and during exercise sufficient to increase pulse from 77 to 102b/min, SpO2 is stable. On this basis, SpO2 is adequate at rest breathing room air and while walking breathing room air. This level of exercise is associated with no significant change of FEV1. Remy Graham M.D. By signing this report, the attending pulmonary physician certifies that he/she has personally reviewed and interpreted the graphic and numerical data associated with this pulmonary function study and has reviewed and /or edited a preliminary draft report and agrees with the written final report. PFT performed at:->[facility] U Adult PFT Lab- [facility] Procedure:->Spirometry Procedure:->Oxygen Assessment Titration Norberto Muro MD PFT ORDERABLES Final Result documented in this encounter Visit Diagnoses Diagnosis Chronic obstructive pulmonary disease, unspecified COPD type (HCC) Bronchiectasis without acute exacerbation (HCC) Bronchiectasis without acute exacerbation documented in this encounter Care Teams Director Of Photography Relationship Specialty Start Date End Date Luis Manuel Kaur MD [address] [address] PCP - General Family Medicine 03/24/18 Genna Pearson, RN Registered Nurse Pulmonary Disease 08/05/22 documented as of this encounter
--- OUTSIDE RECORDS SUMMARY | 2023-04-28 14:45 | XMS_ITS | Encounter Summary ---
Author Organization [facility] Address [address] [place] [address] Phone Care Team Providers Care Pre Sales Technical Consultant Name Role Phone Luis Manuel Kaur MD Primary Care Provider Genna Pearson RN Unavailable Unavailabl e Reason for Referral * Procedure (Routine) - Closed Specialty Diagnoses / Procedures Referred By Contac t Referred To Contact Diagnoses Bronchiectasis without complication (HCC) SATURNINO (mycobacterium avium-intracellulare) (HCC) Pulmonary nodule Procedures Pulmonary Function Test -[facility] Adult PFT Lab- [facility]; Spirometry, Oxygen Assessment Titration Norberto Muro MD [address] [facility] [address] [place] [address] Phone: tel: fax: Referral ID Status Reason Start Date Expiration Date Visits Re quested Visits Authorized [id number] Closed 08/05/2022 09/04/2023 1 1 B/PRE VOCATIONAL COUNSELOR Reason for Visit * Procedure (Routine) - Closed Specialty Diagnoses / Procedures Referred By Contac t Referred To Contact Diagnoses Bronchiectasis without complication (HCC) SATURNINO (mycobacterium avium-intracellulare) (HCC) Pulmonary nodule Procedures Pulmonary Function Test -[facility] Adult PFT Lab- [facility]; Spirometry, Oxygen Assessment Titration Norberto Muro MD [address] [facility] [address] [place] [address] Phone: tel: fax: Referral ID Status Reason Start Date Expiration Date Visits Re quested Visits Authorized [id number] Closed 08/05/2022 09/04/2023 1 1 Encounter Details Date Type Department Care Team (Latest Contact Info) Description 04/28/2023 1:45 PM REHAB/PRE VOCATIONAL COUNSELOR Hospital Encounter [facility] Medicine PFT Lab [address] [facility] Medical Office Building [address] [place] [address] Bronchiectasis without complication (HCC); SATURNINO (mycobacterium avium-intracellulare) (HCC); Pulmonary nodule Social History Tobacco Use Types Packs/Day Years [...] on file Legal Sex Female 6:51 PM REHAB/PRE VOCATIONAL COUNSELOR Gender Identity Not on file Sexual Orientation Not on file documented as of this encounter Plan of Treatment Not on file documented as of this encounter Procedures Procedure Name Priority Date/Time Associated Diagnosis Comments PULMONARY FUNCTION TEST (PFT) Routine 04/28/2023 2:43 PM REHAB/PRE VOCATIONAL COUNSELOR Bronchiectasis without complication (HCC) SATURNINO (mycobacterium avium-intracellulare) (HCC) Pulmonary nodule documented in this encounter Results * Pulmonary Function Test - (04/28/2023 2:43 PM REHAB/PRE VOCATIONAL COUNSELOR) FVC PRE 1.59 L [facility] FVC %PRE PRED 67 % [facility] FEV1 PRE 1.03 L [facility] FEV1 %PRE PRED 57 % [facility] FEV1/FVC PRE 64.6 % [facility] Anatomical Region Laterality Modality PFT 04/28/2023 2:02 PM REHAB/PRE VOCATIONAL COUNSELOR Narrative 04/29/2023 4:19 PM REHAB/PRE VOCATIONAL COUNSELOR Table formatting from the original result was not included. [facility] Division of Pulmonary & Critical Care Medicine [address] [place] [address]; [place] [address]; [place] [id number]; [phone] Pulmonary Function Laboratory Pulmonary Stress Test Simple/Oxygen Assessment Patient: Shelton Cheema Date: 04/28/2023 : 1940 Ht: 63 IN Wt: 106 LBS Time (min) Distance (ft)/ Rainey O2 L/M SpO2 HR Mable* BP FEV1 % Pred Rest: RA 98 99 0.5 93/56 1.03 57 % Walk/Bike: 1 RA 96 105 1 2 RA 95 109 1 3 RA 93 106 1 4 RA 96 110 1 5 RA 95 112 1 6 min 0 sec RA 94 109 2 Recovery: 1 RA 94 101 2 116/61 0.96 54% 3 RA 98 90 2 *Mable rate of perceived exertion (1-10 dyspnea scale) Dewey, CHEST 2003; [id number] Walk Test Summary: Six Minute Walk Distance: 1050 ft Six-minute Walk Work [distance (m) x body wt (kg)]: 17092 kg.m (normal >60,000kg.m) Oxygen required to maintain SpO2 greater than 90% during six minutes of walkin L/M Comments: ATS SCRIPT, HEAD SENSOR, 0 STOPS,O2A Interpretation: Breathing room air, SpO2 is normal at rest and during exercise sufficient to increase pulse from 99 to 109 b/min, SpO2 is stable. On this basis, SpO2 is adequate at rest breathing room air and while walking breathing room air. This level of exercise is associated with no significant change of FEV1. Jim Garcia M.D. By signing this report, the attending pulmonary physician certifies that he/she has personally reviewed and interpreted the graphic and numerical data associated with this pulmonary function study and has reviewed and /or edited a preliminary draft report and agrees with the written final report. 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
--- NOTE | ~2025-04-11 | XR_ITS ---
EXAMINATION: XR chest 2V, 04/11/2025 12:33 CDT HISTORY: R05.9 - Cough, unspecified COMPARISON: No comparisons available. Technique: 2 views obtained. Findings: COPD changes otherwise the lungs are clear. No pneumothorax. Heart is normal size. Mediastinal and hilar contours are within normal limits. Bony thorax no acute abnormality. Impression: No acute cardiopulmonary abnormality. Reviewed, dictated and finalized at location P. Impression: No acute cardiopulmonary abnormality.
[2025-04-11 14:13] LABS: Influenza A QL RT-PCR Negative (Negative); Influenza B QL RT-PCR Negative (Negative); SARS-CoV-2 RNA PCR Negative (Negative)
--- OUTSIDE RECORDS SUMMARY | 2025-04-11 14:58 | XMS_ITS | Clinical Summary ---
Author Organization [facility] [address] [facility] [address] Address [address] [place] [address] Care Team Providers Care Wool Hat Hydraulicker Name Role Phone Luis Manuel Kaur MD [...] 01/08/2024 Assessment & Plan (07/06/2024 2:18 PM GENERAL REPAIR MECHANIC): Doing better since her bowels have become [...] 01/08/2024 Assessment & Plan (07/06/2024 2:18 PM GENERAL REPAIR MECHANIC): Mild. She has a medication at home [...] 05/13/2022 Assessment & Plan (07/06/2024 2:17 PM GENERAL REPAIR MECHANIC): Chronic. She responds well to Metamucil and Colace. Advised to continue both medications and augmented water consumption. Blood in stool 05/13/2022 Fibrotic lung diseases Chronic obstructive pulmonary disease Encounters Date Type Department Care Team Description 02/22/2025 1:45 PM CDT Office Visit [facility] Gastroenterology at [address] [address] Bahman Cleveland MD Other constipation (Primary Dx); Lower abdominal pain; Bloating from Last 3 Months Immunizations Immunization Administration [...] on file Legal Sex Female 6:51 PM GENERAL REPAIR MECHANIC Gender Identity Not on file Sexual Orientation Not on file Obstetrics History Last Filed Vital Signs Vital Sign Reading Time Taken Comments Blood Pressure 127/56 02/22/2025 1:36 PM CDT Pulse 84 02/22/2025 1:36 PM CDT Temperature 36.1 C (97 F) 01/02/2025 12:06 PM CDT Respiratory Rate 18 01/02/2025 12:0 6 PM CDT Oxygen Saturation 93% 02/22/2025 1:36 PM CDT Inhaled Oxygen Concentration - - Weight 46.6 kg (102 lb 12.8 oz) 02/22/2025 1:36 PM CDT Height 160 cm (5' 3) 02/22/2025 1:36 PM CDT Body Mass Index 18.21 02/22/2025 1:36 PM CDT Plan of Treatment Health Maintenance Due Date Last Done Comments Osteoporosis Screening-Bone Density Scan 1940 Hepatitis B Screening 1958 Zoster Vaccine (1 of 2) 1988 Well Visit 65+ 12/06/2003 Fall Risk Assessment 05/28/2023 05/28/2022 Depression Screening 09/17/2023 09/16/2022 Covid-19 Vaccine (2024-2 6 season) 2025 03/12/2022, 10/05/2021, 03/20/2021, Additional history exists Influenza Vaccine (#1) 2025 , 03/13/2019, 03/14/2018, Additional history exists DTaP/Tdap/Td Vaccine (2 - Td or Tdap) 02/24/2027 02/24/2017, 08/20/2004 Pneumococcal vaccine 65+ Completed 06/06/2024, 07/2017 Insurance MEDICARE [facility] SENIOR SUPPLEMENT AETNA MEDICARE GOLD AETNA MEDICARE GOLD Advance Directives For more information, please contact: [phone] Documents on File Type Date Recorded Patient Mixing Machine Feeder Expl anation ADVANCE DIRECTIVE 09/21/2017 12:00 AM POWER OF FRONT MAKER LOCKSTITCH FINANCIAL/MEDICAL Care Teams Wool Hat Hydraulicker Relationship Specialty Start Date End Date Luis Manuel Kaur MD [address] [facility] [address] [place] [address] PCP - General Family Medicine 03/24/18 Genna Pearson, RN Registered Nurse Pulmonary Disease 08/05/22
--- OUTSIDE RECORDS SUMMARY | 2025-04-11 14:58 | XMS_ITS | Clinical Summary ---
Author Organization [facility] Address [address] [facility] [place] [address] Care Team Providers Care Greens Picker Name Role Phone Omer Bar DO Primary Care Provider Source Comments [facility],non-owned Affiliates and Associated Physician Practices is amultiple site organization consisting of ambulatory clinics and hospital sitesin [place], [place], [place] and [place]. This disclosure is being madepursuant to the Care Everywhere program and may not contain all information available regarding this patient. Last updated 18.[facility] QA on Request Social History Tobacco Use Types Packs/Day Years [...] yrs (1 - 1-dose 75+ series) 2013 DEPRESSION SCREENING 06/22/2024 COVID-19 VACCINE (1 - 2023-2 5 season) 2025 INFLUENZA VACCINE (#1) 2025 HEPATITIS B VACCINE [...] Insurance MEDICARE AET MEDICARE AETNA Care Teams Greens Picker Relationship Specialty Start Date End Date Omer Bar DO PCP - General 12/01/19
--- OUTSIDE RECORDS SUMMARY | 2025-04-11 14:58 | XMS_ITS | Encounter Summary ---
Author Organization [facility] Address [address] [place] [address] Care Team Providers Care Field Sales Representative Name Role Phone Sharrirony Omer James DO Primary Care Provider Encounter Details Date Type Department Care Team (Late st Contact Info) Description 12/01/2019 Lab Requisition [facility] DermPath Lab [address] [place] [phone] Thien Oh MD [address] [place] [address] Social History Tobacco Use Types [...] AM CDT) Case Report Dermatopathology Report Case: [id number] Authorizing Provider: Thien Oh MD Collected: 11/30/2019 12:00 AM Ordering Location: [facility] DermPath Lab Received: 12/01/2019 11:00 AM [...] characteristic determined by the Dermatopathology Laboratory at [facility], directed by Dr. Shun Macias. These tests need not be, and therefore are not, approved by the [place] Food and Drug Administration. The tests are used for clinical purposes. Billing Codes Specimen Charges Stain Charges 37882 1 15040 1 0 8:43 PM CDT DERMATOPATHOLOGY LABORATORY Embedded Images 0 8:43 PM CDT DERMATOPATHOLOGY LABORATORY Pathology/Cytolog y TISSUE SPECIMEN FROM SKIN / Unknown 11/30/2019 12/01/2019 11:00 AM CDT Thien Oh MD LAB - PATHOLOGY/CYTOLOGY ORD ERABLES Final Result DERMATOPATHOLOGY LABORATORY [facility] - Department of Dermatology [employer] [place] [address], [facility] [phone] documented in this encounter Visit Diagnoses Not on filedocumented in this encounter Care Teams Field Sales Representative Relationship Specialty Start Date End Date Omer Bar DO PCP - General 12/01/19 documented as of this encounter
--- OUTSIDE RECORDS SUMMARY | 2025-04-11 14:58 | XMS_ITS | Encounter Summary ---
Author Organization [facility] Health Address [address] [place] [address] Care Team Providers Care Marine Steward Name Role Phone Omer Bar DO Primary Care Provider Encounter Details Date Type Department Care Team (Late st Contact Info) Description 12/01/2019 Lab Requisition [facility] [address] [place] [phone] Thien Oh MD [address] [place] [address] Social History Tobacco Use Types [...] on filedocumented in this encounter Care Teams Marine Steward Relationship Specialty Start Date End Date Omer Bar DO PCP - General 12/01/19 documented as of this encounter
--- OUTSIDE RECORDS SUMMARY | 2025-04-11 14:58 | XMS_ITS | Encounter Summary ---
Author Organization [facility] Health Address [address] [facility] [place] [address] Care Team Providers Care Windows Technical Specialist Name Role Phone TilaOmer costello James DO Primary Care Provider Encounter Details Date Type Department Care Team (Late st Contact Info) Description 06/12/2023 Lab Requisition [facility] - DermPath Lab [address] [place] [id number] Thien Oh MD [address] [place] [address] Social History Tobacco Use Types [...] Diagnosis Comments DERMATOPATHOLOGY Routine 06/10/2023 3:33 AM PER DIEM NURSE documented in this encounter Results * DERMATOPATHOLOGY (06/10/2023 3:33 AM PER DIEM NURSE) Case Report Dermatopathology Report Case: [id number] Authorizing Provider: Thien Oh MD Collected: 06/10/2023 03:33 AM Ordering Location: [facility] Derm[facility] Lab Received: 06/16/2023 08:08 AM Pathologist: Anahi Mullen MD Specimen: Skin, midline lower forehead 9:59 AM PER DIEM NURSE DERMATOPATHOLOGY LABORATORY Final Diagnosis Specimen A. 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 The specimen consists of a shave biopsy measuring 8x7x2 mm. Jar 0. 9:59 AM [facility] DERMATOPATHOLOGY LABORATORY Microscopic Description Specimen [...] who concurs with the diagnosis. 9:59 AM [facility] DERMATOPATHOLOGY LABORATORY Disclaimer An external and internal positive and negative controls are appropriate for the histochemical, immunohistochemical and immunofluorescence stain(s) in this case (if any), except where stated explicitly. The performance characteristics of the stain(s) cited in this report were developed and its performance characteristic determined by the Dermatopathology Laboratory at [facility], directed by Dr. Shun Macias. These tests need not be, and therefore are not, approved by the [place] Food and Drug Administration. The tests are used for clinical purposes. Billing Codes Specimen Charges Stain Charges 58173 1 59926 1 3 9:59 AM [facility] DERMATOPATHOLOGY LABORATORY Embedded Images 3 9:59 AM [facility] DERMATOPATHOLOGY LABORATORY Pathology/Cytolo gy TISSUE SPECIMEN FROM SKIN / Unknown 06/10/2023 3:33 AM PER DIEM NURSE 06/16/2023 8:08 AM PER DIEM NURSE Thien Oh MD LAB - PATHOLOGY/CYTOLOGY ORD ERABLES Final Result DERMATOPATHOLOGY LABORATORY [facility] - Department of Dermatology [address], [address] [phone] documented in this encounter Visit Diagnoses Not on filedocumented in this encounter Care Teams Windows Technical Specialist Relationship Specialty Start Date End Date Omer Bar DO PCP - General 12/01/19 documented as of this encounter
== END 2025-04-11 12:15 | disposition home or self-care (01) ==
PROVIDERS: PCP Family Medicine; Visit Provider Physician Assistant
DX: Z20.822 Contact with and (suspected) exposure to COVID-19 (principal); J44.9 Chronic obstructive pulmonary disease, unspecified; J02.9 Acute pharyngitis, unspecified
CPT/HCPCS: 71046; 87636

== ENCOUNTER 2025-04-18 19:26 | Emergency (ER) | payer MEDICARE, SELFPAY ==
[2025-04-18] VITALS (8 sets, daily range): BP systolic 140–198; BP diastolic 74–97; PULSE 62–94; RESP 18–20; TEMP 36.6–36.7; O2SAT 91–98
--- NOTE | ~2025-04-18 | XR_ITS ---
EXAMINATION: XR abdomen obstructive series DATE: 04/18/2025 20:35 INDICATION: Constipation TECHNIQUE: Supine and upright views of the abdomen. FINDINGS: AP portable chest The visualized lung parenchyma is normal.. There is a nonobstructive bowel gas pattern. Moderate retained fecal material in the colon and rectum. Gas and stool are seen throughout the colon to the level of the rectum. There is no free air. There is levoscoliosis. IMPRESSION: 1. No acute abdominal abnormality. Moderate colonic fecal loading. Reviewed, dictated and finalized at location B.
--- NOTE | ~2025-04-18 | CT_ITS ---
EXAMINATION: CT abdomen pelvis w con DATE: 04/18/2025 21:31 INDICATION: Constipation. TECHNIQUE: Computed tomography (CT) of the abdomen and pelvis was performed with 100 mL Omnipaque 350 intravenous contrast. Automated exposure control and iterative reconstruction technique were employed. The dose-length product was 186.97 mGy-cm. COMPARISON: CT abdomen and pelvis 10/28/24 FINDINGS: The visualized portions of the lung bases demonstrate mild atelectasis. There is a 3 mm nodule in left lower lobe, likely benign. No pleural effusion. The heart size is normal. No pericardial effusion. There is a small sliding hiatal hernia. There are cysts in the liver measuring up to 1.6 cm . The gallbladder, spleen, pancreas, and adrenal glands are normal. There is mild bilateral hydronephrosis. The bladder is markedly distended. Stool distends the rectosigmoid. There is wall thickening of the rectum, consistent with stercoral colitis. There is a large volume of stool in the colon. There are no pathologically enlarged lymph nodes. There is no free intraperitoneal fluid. There is severe lumbar spondylosis. Lumbar levoscoliosis is noted. IMPRESSION: 1. Stercoral colitis. 2. Mild bilateral hydronephrosis with markedly distended bladder. 3. Small sliding hiatal hernia. Reviewed, dictated and finalized at location E.
--- NOTE | 2025-04-18 19:42 | PC.NURSE ---
Patient family presented to the waiting room to accompany patient. They report patient with hx of dementia. They report hx of impacted bowel, never surgical. Saw GI in [facility] and was told did not need scope. They request we avoid narcotic pain killers as that makes her symptoms worse. They also have concerns that she cannot drive herself home.
--- NOTE | 2025-04-18 20:43 | ED.GENADULT ---
HPI - General Adult General Chief complaint: Unspecified <Khai Hopper MD - Last Filed: 04/19/25 23:12> Stated complaint: needs to have a bowel movement <Khai Hopper MD - Last Filed: 04/19/25 23:12> Time Seen by Provider: 04/18/25 20:18 <Khai Hopper MD - Last Filed: 04/19/25 23:12> History of Present Illness HPI narrative: 84-year-old female with history of dementia, chronic constipation, COPD. Patient takes Metamucil for constipation and saw her doctor today for her constipation and was prescribed MiraLax that she took a single dose of. She admits to not eating or drinking as much as normal and not drinking enough water. Denies any traumatic injuries. No abdominal surgical history per patient and family. Patient denies any other symptoms at this time but just feels like she needs to defecate. She states she is not sure when her last bowel movement was and thinks it could have been half a day go up to 4 days ago but given her dementia complicates the historical elements and family is filling in the gaps. Patient ambulatory in drove herself to the hospital. No nausea or vomiting. No urinary complaints. No fever chills. No abdominal pain. <Khai Hopper MD - Last Filed: 04/19/25 23:12> Related Data Home medications: Home Medications ?Medication ?Instructions ?Recorded ?Confirmed ?Last Taken ?Type multivitamin 1 tablet PO DAILY 02/13/21 04/11/25 Unknown History omega-3 fatty acids 1,000 mg 1,000 mg PO DAILY 02/13/21 04/11/25 Unknown History capsule (Fish Oil Concentrate) psyllium 1 packet PO DAILY 09/09/23 04/11/25 Unknown History <Khai Hopper MD - Last Filed: 04/19/25 23:12> Allergies/adverse reactions: Allergies Allergy/AdvReac Type Severity Reaction Status Date / Time codeine Allergy Unknown Unknown Verified 04/18/25 20:55 <Khai Hopper MD - Last Filed: 04/19/25 23:12> Review of Systems Review of Systems: As reviewed above in HPI <Khai Hopper MD - Last Filed: 04/19/25 23:12> [facility] Past Medical History Medical History: Medical History Dementia Chronic obstructive pulmonary disease Mycobacterium avium-intracellulare infection Followed by [facility]. Bronchiectasis Chronic constipation Osteoporosis <Khai Hopper MD - Last Filed: 04/19/25 23:12> Surgical History Surgical History: Surgical History H/O basal cell carcinoma excision surgery 08-25-23 History of cataract extraction History of nasal septoplasty History of foot surgery History of bone spur removal in bunionectomy. <Khai Hopper MD - Last Filed: 04/19/25 23:12> Family History Family History: Family History Sibling Patient's sister is in good health Eczema Seafood allergy Father Family history of coronary artery disease Mother Eczema <Khai Hopper MD - Last Filed: 04/19/25 23:12> Social History Social History: Social History Social History: Surrogate medical decision maker: Cynthia Valdes, sister. Code status: Smoking status: Never smoker Second hand tobacco smoke exposure: No Alcohol intake: current Substance use: never Substance use type: does not use Do You Feel Safe in your Home?: Yes Lack of Transportation: No Lack of Food: Never True Current Housing: I Have Housing Concerned About Future Housing: No Difficulty Paying Gas/Electric Bills: No Difficulty Paying for Meds: No Currently Unemployed: No Education: Bachelor's Degree Difficulty w/ Childcare or Family Care: No Living arrangements: alone Additional living arrangements comments: The patient lives in her own home in [place]. She lives at home with her small dog, Chana. She never and has no children. 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 Spiritual care concerns: No <Khai Hopper MD - Last Filed: 04/19/25 23:12> Exam Narrative: GENERAL: Very well-appearing not any acute distress HEAD: [Normocephalic, atraumatic.] EYES: [PERRLA and EOMI.] ENT: Nares clear, no rhinorrhea or epistaxis. Mucous membranes moist. NECK: Supple. CHEST: [Clear to auscultation. No respiratory distress.] HEART: [Regular rate and rhythm]. No murmur heard. [Normal peripheral pulses.] ABDOMEN: Soft and mildly distended, nontender to palpation, no palpable masses. No rigidity or guarding. EXTREMITIES: Normal range of motion. [No edema.] SKIN: Warm, dry, no rash. NEURO: [No focal deficits]. Alert and oriented [x3.] PSYCH: [Normal mood and affect.] <Khai Hopper MD - Last Filed: 04/19/25 23:12> Course Vital Signs Vital signs: Vital Signs Temperature 36.6 C 04/18/25 19:30 Pulse Rate 94 04/18/25 19:30 Respiratory Rate 18 04/18/25 19:30 Blood Pressure 157/74 H 04/18/25 19:30 Pulse Oximetry 98 04/18/25 19:30 Oxygen Delivery Room Air 04/18/25 19:30 Temperature 36.7 C 04/18/25 20:45 Pulse Rate 62 04/18/25 20:45 Respiratory Rate 20 04/18/25 20:45 Blood Pressure 170/91 H 04/18/25 22:15 Pulse Oximetry 94 04/18/25 22:15 Oxygen Delivery Room Air 04/18/25 20:45 <Khai Hopper MD - Last Filed: 04/19/25 23:12> Vital Signs Temperature 36.6 C 04/18/25 19:30 Pulse Rate 94 04/18/25 19:30 Respiratory Rate 18 04/18/25 19:30 Blood Pressure 157/74 H 04/18/25 19:30 Pulse Oximetry 98 04/18/25 19:30 Oxygen Delivery Room Air 04/18/25 19:30 Temperature 36.7 C 04/18/25 20:45 Pulse Rate 62 04/18/25 20:45 Respiratory Rate 20 04/18/25 20:45 Blood Pressure 170/91 H 10/28/25 22:15 Pulse Oximetry 94 04/18/25 22:15 Oxygen Delivery Room Air 04/18/25 20:45 <Brooks Parmar MD - Last Filed: 04/19/25 00:12> Medical Decision Making MDM Narrative Medical decision making narrative: 84-year-old female with history of dementia, chronic constipation, COPD. Patient takes Metamucil for constipation and saw her doctor today for her constipation and was prescribed MiraLax that she took a single dose of. She admits to not eating or drinking as much as normal and not drinking enough water. Denies any traumatic injuries. No abdominal surgical history per patient and family. Patient denies any other symptoms at this time but just feels like she needs to defecate. She states she is not sure when her last bowel movement was and thinks it could have been half a day go up to 4 days ago but given her dementia complicates the historical elements and family is filling in the gaps. Patient ambulatory in drove herself to the hospital. No nausea or vomiting. No urinary complaints. No fever chills. No abdominal pain. Patient has normal vital signs here. Soft nontender, mildly distended abdomen. No nausea vomiting or abdominal pain with palpation or any distention. She has a history of chronic constipation. Low suspicion obstruction without any risk factors at this time. No nausea or vomiting. Basic laboratory studies and obstruction x-ray series ordered. She was given fluid hydration. X-ray showed some dilated bowel gas patterns per my interpretation. CT scan ordered with contrast for further evaluation of potential obstruction. Laboratory studies showed no leukocytosis or anemia. Normal platelet count. Electrolytes are largely unremarkable. Normal creatinine. Normal glucose. Normal LFTs. Patient care signed over to Dr. Parmar pending CT scan and final disposition based on results. <Khai Hopper MD - Last Filed: 04/19/25 23:12> Medical Records Medical records reviewed: Yes I reviewed the external patient's medical records. <Khai Hopper MD - Last Filed: 04/19/25 23:12> Vital Signs Vital Signs: Vital Signs Temperature 36.6 C 04/18/25 19:30 Pulse Rate 94 04/18/25 19:30 Respiratory Rate 18 04/18/25 19:30 Blood Pressure 157/74 H 04/18/25 19:30 Pulse Oximetry 98 04/18/25 19:30 Oxygen Delivery Room Air 04/18/25 19:30 Temperature 36.7 C 04/18/25 20:45 Pulse Rate 62 04/18/25 20:45 Respiratory Rate 20 04/18/25 20:45 Blood Pressure 170/91 H 04/18/25 22:15 Pulse Oximetry 94 04/18/25 22:15 Oxygen Delivery Room Air 04/18/25 20:45 <Khai Hopper MD - Last Filed: 04/19/25 23:12> Vital Signs Temperature 36.6 C 04/18/25 19:30 Pulse Rate 94 04/18/25 19:30 Respiratory Rate 18 04/18/25 19:30 Blood Pressure 157/74 H 04/18/25 19:30 Pulse Oximetry 98 04/18/25 19:30 Oxygen Delivery Room Air 04/18/25 19:30 Temperature 36.7 C 04/18/25 20:45 Pulse Rate 62 04/18/25 20:45 Respiratory Rate 20 04/18/25 20:45 Blood Pressure 170/91 H 04/18/25 22:15 Pulse Oximetry 94 04/18/25 22:15 Oxygen Delivery Room Air 04/18/25 20:45 <Brooks Parmar MD - Last Filed: 04/19/25 00:12> Lab Data Lab results reviewed: Yes I reviewed the patient's lab results. <Khai Hopper MD - Last Filed: 04/19/25 23:12> Result diagrams: 04/18/25 20:50 04/18/25 20:50 <Khai Hopper MD - Last Filed: 04/19/25 23:12> Labs: Lab Results 04/18/25 Range/Units 20:50 WBC 8.8 (4.5-10.0) K/mm3 RBC 4.17 L (4.2-5.4) M/mm3 Hgb 13.1 (12.0-15.0) g/dL Hct 39.9 (37.0-47.0) % MCV 95.7 (80-100) fl MCH 31.4 (26-34) pg MCHC 32.8 (32-36) g/dl RDW 13.7 (11.5-14.5) % Plt Count 179 (150-375) k/mm3 MPV 10.4 (7.4-10.4) fl Immature Gran % (Auto) 0.6 H (0-0.5) % Neut % (Auto) 77.6 H (45.5-73.1) % Lymph % (Auto) 12.4 L (18.3-44.2) % White % (Auto) 9.1 H (2.6-8.5) % Eos % (Auto) 0.0 (0-4.4) % Baso % (Auto) 0.3 (0.2-1.2) % Lymph # (Auto) 1.09 (0.9-3.2) K/mm3 White # (Auto) 0.8 H (0.1-0.6) K/mm3 Eos # (Auto) 0.0 (0-0.3) K/mm3 Baso # (Auto) 0.0 (0.0-0.1) K/mm3 Abs Immat Gran (auto) 0.05 H (0.00-0.031) K/mm3 Absolute Neuts (auto) 6.8 H (1.3-6.7) K/mm3 Absolute Nucleated RBC 0.000 (0.0-0.012) K/mm3 Nucleated RBC % 0.0 (0.0-0.2) % Sodium 135 L (137-145) mmol/L Potassium 4.1 (3.4-5.0) mmol/L Chloride 105 (98-107) mmol/L Carbon Dioxide 23 (22-30) mmol/L Anion Gap 7 (4-12) mmol/L BUN 25 H (7-17) mg/dL Creatinine 0.70 (0.7-1.0) mg/dL Estim Creat Clear Calc 41 ml/min Estimated GFR > 60 (59 - ) Glucose 104 (65-110) mg/dL Calcium 8.7 (8.4-10.2) mg/dL Magnesium 2.0 (1.6-2.3) mg/dL Total Bilirubin 0.6 (0.2-1.3) mg/dL AST 25 (14-36) U/L ALT 22 (6-35) U/L Alkaline Phosphatase 85 (38-126) U/L Total Protein 6.4 (6.3-8.2) g/dL Albumin 3.7 (3.5-5.1) g/dL <Khai Hopper MD - Last Filed: 04/19/25 23:12> Lab Results 04/18/25 Range/Units 20:50 WBC 8.8 (4.5-10.0) K/mm3 RBC 4.17 L (4.2-5.4) M/mm3 Hgb 13.1 (12.0-15.0) g/dL Hct 39.9 (37.0-47.0) % MCV 95.7 (80-100) fl MCH 31.4 (26-34) pg MCHC 32.8 (32-36) g/dl RDW 13.7 (11.5-14.5) % Plt Count 179 (150-375) k/mm3 MPV 10.4 (7.4-10.4) fl Immature Gran % (Auto) 0.6 H (0-0.5) % Neut % (Auto) 77.6 H (45.5-73.1) % Lymph % (Auto) 12.4 L (18.3-44.2) % White % (Auto) 9.1 H (2.6-8.5) % Eos % (Auto) 0.0 (0-4.4) % Baso % (Auto) 0.3 (0.2-1.2) % Lymph # (Auto) 1.09 (0.9-3.2) K/mm3 White # (Auto) 0.8 H (0.1-0.6) K/mm3 Eos # (Auto) 0.0 (0-0.3) K/mm3 Baso # (Auto) 0.0 (0.0-0.1) K/mm3 Abs Immat Gran (auto) 0.05 H (0.00-0.031) K/mm3 Absolute Neuts (auto) 6.8 H (1.3-6.7) K/mm3 Absolute Nucleated RBC 0.000 (0.0-0.012) K/mm3 Nucleated RBC % 0.0 (0.0-0.2) % Sodium 135 L (137-145) mmol/L Potassium 4.1 (3.4-5.0) mmol/L Chloride 105 (98-107) mmol/L Carbon Dioxide 23 (22-30) mmol/L Anion Gap 7 (4-12) mmol/L BUN 25 H (7-17) mg/dL Creatinine 0.70 (0.7-1.0) mg/dL Estim Creat Clear Calc 41 ml/min Estimated GFR > 60 (59 - ) Glucose 104 (65-110) mg/dL Calcium 8.7 (8.4-10.2) mg/dL Magnesium 2.0 (1.6-2.3) mg/dL Total Bilirubin 0.6 (0.2-1.3) mg/dL AST 25 (14-36) U/L ALT 22 (6-35) U/L Alkaline Phosphatase 85 (38-126) U/L Total Protein 6.4 (6.3-8.2) g/dL Albumin 3.7 (3.5-5.1) g/dL <Brooks Parmar MD - Last Filed: 04/19/25 00:12> Imaging Data Attestation: I personally reviewed and interpreted this imaging study as follows: <Khai Hopper MD - Last Filed: 04/19/25 23:12> My impression: Some dilated bowel loops on the abdominal x-rays. CT pending. <Khai Hopper MD - Last Filed: 04/19/25 23:12> [facility] Narrative Medical decision making narrative: Patient signed out to me by Dr. Castillo pending CT abdomen/pelvis. Patient was straining on the toilet so she was given a Fleet enema which she requested. CT abdomen/pelvis showed large fecal burden without obstruction or impaction. Shortly after Fleet enema, patient did begin to have adequate bowel movements. Patient was deemed appropriate for discharge at this time. Patient was given a prescription for magnesium citrate. Patient was advised follow-up with their PCP in the next week for re-evaluation. Patient and family were agreeable to this plan. Given strict return precautions. <Brooks Parmar MD - Last Filed: 04/19/25 00:12> Lab Data Result diagrams: 04/18/25 20:50 04/18/25 20:50 <Khai Hopper MD - Last Filed: 04/19/25 23:12> Labs: Lab Results 04/18/25 Range/Units 20:50 WBC 8.8 (4.5-10.0) K/mm3 RBC 4.17 L (4.2-5.4) M/mm3 Hgb 13.1 (12.0-15.0) g/dL Hct 39.9 (37.0-47.0) % MCV 95.7 (80-100) fl MCH 31.4 (26-34) pg MCHC 32.8 (32-36) g/dl RDW 13.7 (11.5-14.5) % Plt Count 179 (150-375) k/mm3 MPV 10.4 (7.4-10.4) fl Immature Gran % (Auto) 0.6 H (0-0.5) % Neut % (Auto) 77.6 H (45.5-73.1) % Lymph % (Auto) 12.4 L (18.3-44.2) % White % (Auto) 9.1 H (2.6-8.5) % Eos % (Auto) 0.0 (0-4.4) % Baso % (Auto) 0.3 (0.2-1.2) % Lymph # (Auto) 1.09 (0.9-3.2) K/mm3 White # (Auto) 0.8 H (0.1-0.6) K/mm3 Eos # (Auto) 0.0 (0-0.3) K/mm3 Baso # (Auto) 0.0 (0.0-0.1) K/mm3 Abs Immat Gran (auto) 0.05 H (0.00-0.031) K/mm3 Absolute Neuts (auto) 6.8 H (1.3-6.7) K/mm3 Absolute Nucleated RBC 0.000 (0.0-0.012) K/mm3 Nucleated RBC % 0.0 (0.0-0.2) % Sodium 135 L (137-145) mmol/L Potassium 4.1 (3.4-5.0) mmol/L Chloride 105 (98-107) mmol/L Carbon Dioxide 23 (22-30) mmol/L Anion Gap 7 (4-12) mmol/L BUN 25 H (7-17) mg/dL Creatinine 0.70 (0.7-1.0) mg/dL Estim Creat Clear Calc 41 ml/min Estimated GFR > 60 (59 - ) Glucose 104 (65-110) mg/dL Calcium 8.7 (8.4-10.2) mg/dL Magnesium 2.0 (1.6-2.3) mg/dL Total Bilirubin 0.6 (0.2-1.3) mg/dL AST 25 (14-36) U/L ALT 22 (6-35) U/L Alkaline Phosphatase 85 (38-126) U/L Total Protein 6.4 (6.3-8.2) g/dL Albumin 3.7 (3.5-5.1) g/dL <Khai Hopper MD - Last Filed: 04/19/25 23:12> Lab Results 04/18/25 Range/Units 20:50 WBC 8.8 (4.5-10.0) K/mm3 RBC 4.17 L (4.2-5.4) M/mm3 Hgb 13.1 (12.0-15.0) g/dL Hct 39.9 (37.0-47.0) % MCV 95.7 (80-100) fl MCH 31.4 (26-34) pg MCHC 32.8 (32-36) g/dl RDW 13.7 (11.5-14.5) % Plt Count 179 (150-375) k/mm3 MPV 10.4 (7.4-10.4) fl Immature Gran % (Auto) 0.6 H (0-0.5) % Neut % (Auto) 77.6 H (45.5-73.1) % Lymph % (Auto) 12.4 L (18.3-44.2) % White % (Auto) 9.1 H (2.6-8.5) % Eos % (Auto) 0.0 (0-4.4) % Baso % (Auto) 0.3 (0.2-1.2) % Lymph # (Auto) 1.09 (0.9-3.2) K/mm3 White # (Auto) 0.8 H (0.1-0.6) K/mm3 Eos # (Auto) 0.0 (0-0.3) K/mm3 Baso # (Auto) 0.0 (0.0-0.1) K/mm3 Abs Immat Gran (auto) 0.05 H (0.00-0.031) K/mm3 Absolute Neuts (auto) 6.8 H (1.3-6.7) K/mm3 Absolute Nucleated RBC 0.000 (0.0-0.012) K/mm3 Nucleated RBC % 0.0 (0.0-0.2) % Sodium 135 L (137-145) mmol/L Potassium 4.1 (3.4-5.0) mmol/L Chloride 105 (98-107) mmol/L Carbon Dioxide 23 (22-30) mmol/L Anion Gap 7 (4-12) mmol/L BUN 25 H (7-17) mg/dL Creatinine 0.70 (0.7-1.0) mg/dL Estim Creat Clear Calc 41 ml/min Estimated GFR > 60 (59 - ) Glucose 104 (65-110) mg/dL Calcium 8.7 (8.4-10.2) mg/dL Magnesium 2.0 (1.6-2.3) mg/dL Total Bilirubin 0.6 (0.2-1.3) mg/dL AST 25 (14-36) U/L ALT 22 (6-35) U/L Alkaline Phosphatase 85 (38-126) U/L Total Protein 6.4 (6.3-8.2) g/dL Albumin 3.7 (3.5-5.1) g/dL <Brooks Parmar MD - Last Filed: 04/19/25 00:12> Imaging Data Radiologist's impression: ITS Impressions Abdomen X-Ray 04/19/25 07:23 IMPRESSION: 1. No acute abdominal abnormality. Moderate colonic fecal loading. Abdomen/Pelvis CT 04/19/25 07:36 IMPRESSION: 1. Stercoral colitis. 2. Mild bilateral hydronephrosis with markedly distended bladder. 3. Small sliding hiatal hernia. <Khai Hopper MD - Last Filed: 04/19/25 23:12> ITS Impressions Abdomen X-Ray 04/19/25 07:23 IMPRESSION: 1. No acute abdominal abnormality. Moderate colonic fecal loading. Abdomen/Pelvis CT 04/19/25 07:36 IMPRESSION: 1. Stercoral colitis. 2. Mild bilateral hydronephrosis with markedly distended bladder. 3. Small sliding hiatal hernia. <Brooks Parmar MD - Last Filed: 04/19/25 00:12> Discharge Plan Discharge Clinical Impression: Constipation Qualifiers: Constipation type: unspecified constipation type Qualified Code(s): K59.00 - Constipation, unspecified Dementia Qualifiers: Dementia type: unspecified type Dementia severity: moderate Dementia behavioral or psychological symptom: unspecified whether behavioral, psychotic, or mood disturbance or anxiety Qualified Code(s): F03.B0 - Unspecified dementia, moderate, without behavioral disturbance, psychotic disturbance, mood disturbance, and anxiety <Khai Hopper MD - Last Filed: 04/19/25 23:12> Patient Disposition: Home <Khai Hopper MD - Last Filed: 04/19/25 23:12> Condition: Stable <Khai Hopper MD - Last Filed: 04/19/25 23:12> Instructions: Constipation (ED) <Khai Hopper MD - Last Filed: 04/19/25 23:12> Additional Instructions: Use MiraLax as previously prescribed. Try magnesium citrate as well. Follow-up with your PCP in the next week for re-evaluation. Return to the ED for any new or worsening symptoms. <Khai Hopper MD - Last Filed: 04/19/25 23:12> Patient Language: Malay <Khai Hopper MD - Last Filed: 04/19/25 23:12> Prescriptions: New magnesium citrate Solution 150 ml PO BID PRN (Reason: constipation) Qty: 296 0RF No Action albuterol sulfate 90 mcg/actuation HFA aerosol inhaler 1 puff inhalation Q6H PRN (Reason: shortness of breath or wheezing) Qty: 8.5 0RF prednisone 10 mg tablet 10 mg PO DAILY Qty: 30 0RF Rx Instructions: Take PO 4 tabs daily x3 days, 3 tabs daily x3 days, 2 tabs daily x3 days, 1 tab daily x3 days fluticasone propionate 50 mcg/actuation spray,suspension 1 spray intranasal DAILY Qty: 16 0RF Rx Instructions: administer into each nostril budesonide-formoterol [Symbicort] 80-4.5 mcg/actuation HFA aerosol inhaler 2 puff inhalation Q12H Qty: 10.2 0RF multivitamin Tablet 1 tablet PO DAILY omega-3 fatty acids [Fish Oil Concentrate] 1,000 mg capsule 1,000 mg PO DAILY memantine [Namenda] 5 mg tablet 5 mg PO BID Qty: 60 2RF Rx Instructions: one po qam x one wk, then one po bid psyllium Packet 1 packet PO DAILY benzonatate 100 mg capsule 100 - 200 mg PO TID PRN (Reason: cough) Qty: 60 0RF Rx Instructions: Take 1 to 2 caps (100 to 200 mg) TID prn for cough. Max 600 mg/day <Khai Hopper MD - Last Filed: 04/19/25 23:12> Follow-up/Referrals: Luis Manuel Kaur MD [Primary Care Provider, Family Practice] <Khai Hopper MD - Last Filed: 04/19/25 23:12>
[2025-04-18 20:58] LABS: Hematocrit 39.9 % (37.0-47.0); Hemoglobin 13.1 g/dL (12.0-15.0); Immature Granulocyte Percent A 0.6 % (0-0.5); Lymphocytes Absolute Auto 1.09 K/mm3 (0.9-3.2); Mean Corpuscular HGB Conc 32.8 g/dl (32-36); Mean Corpuscular Hemoglobin 31.4 pg (26-34); Mean Corpuscular Volume 95.7 fl (80-100); Nucleated Red Blood Cells Absolute Auto 0.000 K/mm3 (0.0-0.012); Nucleated Red Blood Cells Perc 0.0 % (0.0-0.2); Platelet Count Result 179 k/mm3 (150-375); Red Blood Count 4.17 M/mm3 (4.2-5.4); White Blood Count 8.8 K/mm3 (4.5-10.0)
[2025-04-18] MEDS: LACTATED RINGERS 1,000 ML 999 ML IV CONT (20:58)
[2025-04-18 21:09] LABS: Alanine Aminotransferase 22 U/L (6-35); Albumin Level 3.7 g/dL (3.5-5.1); Alkaline Phosphatase 85 U/L (38-126); Anion Gap 7 mmol/L (4-12); Aspartate Amino Transferase 25 U/L (14-36); Bilirubin,Total 0.6 mg/dL (0.2-1.3); Blood Urea Nitrogen 25 mg/dL (7-17); Calcium 8.7 mg/dL (8.4-10.2); Carbon Dioxide 23 mmol/L (22-30); Chloride 105 mmol/L (98-107); Estimated CRCL calculation 41 ml/min; Estimated Glomerular Filt Rate > 60; Glucose 104 mg/dL (65-110); Magnesium 2.0 mg/dL (1.6-2.3); Potassium 4.1 mmol/L (3.4-5.0); Sodium 135 mmol/L (137-145); Total Protein 6.4 g/dL (6.3-8.2)
== END 2025-04-19 00:50 | disposition home or self-care (01) ==
PROVIDERS: Emergency Provider Student in an Organized Health Care Education/Training Program; PCP Family Medicine
DX: K59.00 Constipation, unspecified (principal); F03.B0 Unspecified dementia, moderate, without behavioral disturbance, psychotic disturbance, mood disturbance, and anxiety; J44.9 Chronic obstructive pulmonary disease, unspecified; M81.0 Age-related osteoporosis without current pathological fracture; Z85.828 Personal history of other malignant neoplasm of skin; Z98.49 Cataract extraction status, unspecified eye; K44.9 Diaphragmatic hernia without obstruction or gangrene; K52.9 Noninfective gastroenteritis and colitis, unspecified; N13.30 Unspecified hydronephrosis; R93.41 Abnormal radiologic findings on diagnostic imaging of renal pelvis, ureter, or bladder
CPT/HCPCS: 36415; 74019; 74177; 80053; 83735; 85025; 96360; 99284; J7120; Q9967